=== PATIENT | female | born 1965 | race Caucasian/White ===

== ENCOUNTER 2017-05-11 19:39 | Emergency (ER) | payer BC, MEDICAID ==
[2017-05-11] MEDS ORDERED: Acetaminophen/HYDROcodone 325-10 MG Tab PO ONE (20:08)
[2017-05-11] MEDS ORDERED: Amoxicillin 500 MG Cap PO ONE (20:08)
[2017-05-11] MEDS ORDERED: Amoxicillin 500 MG Cap ONE (20:08)
[2017-05-11] MEDS ORDERED: Acetaminophen/HYDROcodone 325-10 MG Tab ONE (20:08)
[2017-05-11] MEDS ORDERED: Lidocaine 2% Viscous Solution 15 ML Cup PO ONE (20:08)
[2017-05-11] MEDS ORDERED: Lidocaine 2% Viscous Solution 15 ML Cup ONE (20:08)
[2017-05-11] MEDS ORDERED: Lisinopril 10 MG Tab PO ONE (20:15)
--- NOTE | 2017-05-11 20:15 | EDM.PDOC ---
[id number] PAINS, [id number] Time Seen by Provider: 05/11/17 19:50 Source of Information: Reports: Patient History Limitations: Reports: No Limitations - History of Present Illness INITIAL COMMENTS - FREE TEXT/NARRATIVE: c/o severe dental pain to lower right molar. notes tried to get into her dentist today but he is out for the week. Also tried to get someone at clinic to prescribe antibiotic but no one returned her call. Notes swollen gland on right side. Duration: Day(s): (last night) Quality: Reports: Throbbing Severity: Moderate Treatments MATCHER: Reports: Acetaminophen Right Upper Posterior Tooth/Teeth Pain Score (Numeric/FACES): 9 - Related Data Allergies Allergy/AdvReac Type Severity Reaction Status Date / Time No Known Allergies Allergy Verified 05/11/17 19:49 Home Meds: Home Meds metFORMIN [Glucophage] 1,000 mg PO BID 12/30/14 [History] Aspirin [Halfprin] 81 mg PO DAILY 02/19/15 [History] Cyclobenzaprine [Flexeril] 5 mg PO QID PRN 02/19/15 [History] Desoximetasone [Topicort 0.25% Crm] 1 gm TOP BID PRN 02/19/15 [History] Ibuprofen 400 mg PO Q6H PRN 02/19/15 [History] Lisinopril [Lisinopril] 10 mg PO DAILY 02/19/15 [History] Past Medical History Cardiovascular History: Reports: High Cholesterol, Hypertension Other Dermatologic History: eczema - Past Surgical History Other Female Surgeries/Procedures: "bleeding left ovarian cyst Social & Family History - Tobacco Use Smoking Status *Q: Never Smoker Years of Tobacco use: 20 Packs/Tins Daily: 0.2 Used Tobacco, but Quit: Yes Month Tobacco Last Used: current Second Hand Smoke Exposure: No - Caffeine Use Caffeine Use: Reports: Coffee, Soda, Tea - Alcohol Use Days Per Week of Alcohol Use: 0 Number of Drinks Per Day: 0 Total Drinks Per Week: 0 Date of Last Drink: 05/09/17 - Recreational Drug Use Recreational Drug Use: No Drug Use in Last 12 Months: No ED ROS ENT - Review of Systems Review Of Systems: See Below Constitutional: Reports: Chills HEENT: Reports: Dental Pain Respiratory: Reports: No Symptoms Cardiovascular: Reports: No Symptoms Musculoskeletal: Reports: No Symptoms Neurological: Reports: No Symptoms ED EXAM, ENT - Physical Exam Exam: See Below Exam Limited By: No Limitations General Appearance: Alert, Moderate Distress Eye Exam: Bilateral Eye: EOMI Ears: Normal External Exam, Normal TMs Nose: Normal Inspection Mouth/Throat: Dental Abcess (right lower posterior molar with decay, gum swollen. Remaining dentation good. ), Dental Pain Head: Atraumatic, Normocephalic Neck: Lymphadenopathy (L), Lymphadenopathy (R) Respiratory/Chest: No Respiratory Distress, Lungs Clear Cardiovascular: Normal Peripheral Pulses, Regular Rate, Rhythm GI/Abdominal: Normal Bowel Sounds Neurological: Alert, Oriented Skin: Warm, Dry, Intact Course - Vital Signs Last Recorded V/S: Last Vital Signs Temp 97.1 F 05/11/17 19:46 Pulse 99 05/11/17 19:46 Resp 18 05/11/17 19:46 BP 166/93 H 05/11/17 20:39 Pulse Ox 97 05/11/17 19:46 - Orders/Labs/Meds Meds: Medications Discontinued Medications Generic Name Dose Route Start Last Admin Trade Name Yo PRN Reason Stop Dose Admin Hydrocodone Bitart/Acetaminophen Confirm 05/11/17 20:08 [place] 325-10 Mg Administered 05/11/17 20:09 Dose 2 tab .ROUTE .STK-MED ONE Amoxicillin Confirm 05/11/17 20:08 Amoxil Administered 05/11/17 20:09 Dose 1,000 mg .ROUTE .STK-MED ONE Lidocaine HCl Confirm 05/11/17 20:08 Xylocaine 2% Viscous Administered 05/11/17 20:09 Dose 15 ml .ROUTE .STK-MED ONE Lisinopril 10 mg 05/11/17 20:15 05/11/17 20:20 Prinivil PO 05/11/17 20:16 10 mg ONETIME ONE Administration Departure - Departure Time of Disposition: 20:05 Disposition: Home, Self-Care 01 Condition: Fair Clinical Impression: Dental abscess - Discharge Information Instructions: Dental Abscess Referrals: Ashley Arriaga MD [Primary Care Provider] - Forms: ED Department Discharge Additional Instructions: Amoxicillin 500mg 1gm tonight then 500mg three times daily for one week Viscous lidocaine, apply small amount to affected tooth 4 times daily as needed 15ml tonight hydrocodone 10/325 one every 6 hours as needed #2 then alternate tylenol 650mg and ibuprofen 600mg every 4 hours as needed for dental pain follow up with dentist next week avoid foods and liquids with extreme temperature chew on opposite side
[2017-05-11 20:41] VITALS: BP 166/93
== END 2017-05-11 20:37 | disposition home or self-care (01) ==
LOC: DL.ED 19:39
DX: K04.7 Periapical abscess without sinus (principal); I10 Essential (primary) hypertension; E78.00 Pure hypercholesterolemia, unspecified; Z87.891 Personal history of nicotine dependence; Z79.82 Long term (current) use of aspirin; Z79.899 Other long term (current) drug therapy
CPT/HCPCS: 99283; A9270

== ENCOUNTER 2018-01-01 17:10 | Emergency (ER) | payer BC ==
[2018-01-01] MEDS ORDERED: Codeine/Promethazine 10-6.25 MG/5 ML Syrup 5 ML UD Cup PO ONE (17:11)
[2018-01-01] MEDS ORDERED: Ondansetron 4 MG Tab.DIS PO ONE (17:11)
[2018-01-01] MEDS ORDERED: Sodium Chloride 0.9% 1,000 ML IV ONE ×2 (17:36→19:52)
[2018-01-01] MEDS ORDERED: Albuterol/Ipratropium 3.0-0.5 MG/3 ML Neb Soln NEB ONE (17:42)
[2018-01-01 18:03] LABS: ANION GAP 11.9
--- NOTE | 2018-01-01 18:31 | EDM.PDOC ---
<Amna Solano - Last Filed: 01/01/18 18:37> ED HPI GENERAL MEDICAL PROBLEM - General Chief Complaint: General Stated Complaint: [id number] SICK SINCE MONDAY Time Seen by Provider: 01/01/18 17:30 Source of Information: Reports: Patient, RN, RN Notes Reviewed History Limitations: Reports: No Limitations - History of Present Illness INITIAL COMMENTS - FREE TEXT/NARRATIVE: Pt presents to the ER with c/o feeling ill since or Monday. She states she has had a non-productive cough, SOB, fever and chills, diarrhea, nausea and vomiting, weakness. Pt states she had a right lower lobectomy in 2014. Onset: Gradual Onset Date: 12/29/17 Duration: Constant - Related Data Allergies Allergy/AdvReac Type Severity Reaction Status Date / Time No Known Allergies Allergy Verified 01/01/18 17:14 Home Meds: Home Meds metFORMIN [Glucophage] 1,000 mg PO BID 12/30/14 [History] Aspirin [Halfprin] 81 mg PO DAILY 02/19/15 [History] Cyclobenzaprine [Flexeril] 5 mg PO QID PRN 02/19/15 [History] Desoximetasone [Topicort 0.25% Crm] 1 gm TOP BID PRN 02/19/15 [History] Ibuprofen 400 mg PO Q6H PRN 02/19/15 [History] Lisinopril [Lisinopril] 10 mg PO DAILY 02/19/15 [History] Calcitriol 01/01/18 [History] Past Medical History Cardiovascular History: Reports: High Cholesterol, Hypertension Endocrine/Metabolic History: Reports: Diabetes, Type II Oncologic (Cancer) History: Reports: Lung Other Dermatologic History: eczema - Past Surgical History Other Female Surgeries/Procedures: "bleeding left ovarian cyst Oncologic Surgical History: Reports: Lobectomy Other Oncologic Surgeries/Procedures: right lower lobe removed 2014 Social & Family History - Family History Family Medical History: Noncontributory - Tobacco Use Smoking Status *Q: Current Every Day Smoker Years of Tobacco use: 30 Packs/Tins Daily: 0.5 Used Tobacco, but Quit: Yes Month Tobacco Last Used: current Second Hand Smoke Exposure: No - Caffeine Use Caffeine Use: Reports: Coffee, Energy Drinks, Soda, Tea - Alcohol Use Days Per Week of Alcohol Use: 0 Number of Drinks Per Day: 0 Total Drinks Per Week: 0 - Recreational Drug Use Recreational Drug Use: No Drug Use in Last 12 Months: No ED ROS GENERAL - Review of Systems Review Of Systems: ROS reveals no pertinent complaints other than HPI. ED EXAM, GENERAL - Physical Exam Exam: See Below Exam Limited By: No Limitations General Appearance: Alert, WD/WN, Mild Distress Eye Exam: Bilateral Eye: EOMI, Normal Inspection, PERRL Ears: Normal External Exam, Hearing Grossly Normal Nose: Normal Inspection Throat/Mouth: Normal Inspection, Normal Voice, No Airway Compromise, Other (Dry mucous membranes) Head: Atraumatic, Normocephalic Neck: Normal Inspection, Supple, Non-Tender, Full Range of Motion Respiratory/Chest: No Respiratory Distress, No Accessory Muscle Use, Chest Non- Tender, Rhonchi (Right lung throughout) Cardiovascular: Normal Peripheral Pulses, Regular Rate, Rhythm, No Edema, No Gallop, No JVD, No Murmur, No Rub Peripheral Pulses: 2+: Radial (L), Radial (R) GI/Abdominal: Normal Bowel Sounds, Soft, No Organomegaly, No Distention, No Abnormal Bruit, No Mass, Tender (Female) Exam: Deferred Rectal (Female) Exam: Deferred Back Exam: Normal Inspection, Full Range of Motion Extremities: Normal Inspection, Normal Range of Motion, Non-Tender, No Pedal Edema, Normal Capillary Refill Neurological: Alert, Oriented, CN II-XII Intact, Normal Cognition, Normal Gait, Normal Reflexes, No Motor/Sensory Deficits Psychiatric: Normal Affect, Normal Mood Skin Exam: Warm, Dry, Intact, No Rash, Pallor Lymphatic: No Adenopathy Course - Vital Signs Last Recorded V/S: Last Vital Signs Temp 37.4 C 01/01/18 19:26 Pulse 76 01/01/18 19:26 Resp 22 H 01/01/18 19:26 BP 136/76 01/01/18 19:26 Pulse Ox 92 L 01/01/18 19:26 - Orders/Labs/Meds Orders: Active Orders 24 hr Category Date Time Status RT Aerosol Therapy [RC] ASDIRECTED Care 01/01/18 17:42 Active CULTURE BLOOD [BC] Stat Lab 01/01/18 17:35 Received CULTURE URINE [RM] Stat Lab 01/01/18 19:04 Received Labs: Laboratory Tests 01/01/18 01/01/18 01/01/18 Range/Units 17:35 17:35 17:35 WBC 5.4 (5.0-10.0) 10^3/uL RBC 3.97 L (4.2-5.4) 10^6/uL Hgb 12.2 (12.0-16.0) g/dL Hct 38.1 (37.0-47.0) % MCV 96.0 (80-100) fL MCH 30.7 (27.0-34.0) pg MCHC 32.0 L (33.0-35.0) g/dL Plt Count 220 D (150-450) 10^3/uL Neut % (Auto) 67.6 (42.2-75.2) % Lymph % (Auto) 23.7 (20.5-50.1) % [place] % (Auto) 8.1 H (2-8) % Eos % (Auto) 0.2 L (1.0-3.0) % Baso % (Auto) 0.4 (0.0-1.0) % Sodium 135 (135-145) mmol/L Potassium 3.9 (3.6-5.0) mmol/L Chloride 101 (101-111) mmol/L Carbon Dioxide 26.0 (21.0-31.0) mmol/L Anion Gap 11.9 BUN 28 H (7-18) mg/dL Creatinine 2.1 H (0.6-1.3) mg/dL Est Cr Clr Drug Dosing 30.82 mL/min Estimated GFR (MDRD) 25 BUN/Creatinine Ratio 13.33 Glucose 122 H (74-105) mg/dL Lactic Acid 0.8 (0.5-2.2) mmol/L Calcium 8.8 (8.4-10.2) mg/dl Total Bilirubin 0.3 (0.2-1.0) mg/dL AST 25 (10-42) IU/L ALT 19 (10-60) IU/L Alkaline Phosphatase 66 (42-121) IU/L Lactate Dehydrogenase (91-180) IU/L Total Protein 7.2 (6.7-8.2) g/dl Albumin 3.6 (3.2-5.5) g/dl Globulin 3.6 Albumin/Globulin Ratio 1.00 Urine Color (YELLOW) Urine Appearance (CLEAR) Urine pH (5.0-9.0) Ur Specific [place] (1.005-1.030) Urine Protein (NEGATIVE) Urine Glucose (UA) (NEGATIVE) Urine Ketones (NEGATIVE) Urine Occult Blood (NEGATIVE) Urine Nitrite (NEGATIVE) Urine Bilirubin (NEGATIVE) Urine Urobilinogen (0.2-1.0) mg/dL Ur Leukocyte Esterase (NEGATIVE) Urine RBC /HPF Urine WBC (0-5/HPF) /HPF Ur Epithelial Cells /HPF Urine Bacteria (0-FEW/HPF) /HPF 01/01/18 01/01/18 Range/Units 17:35 19:04 WBC (5.0-10.0) 10^3/uL RBC (4.2-5.4) 10^6/uL Hgb (12.0-16.0) g/dL Hct (37.0-47.0) % MCV (80-100) fL MCH (27.0-34.0) pg MCHC (33.0-35.0) g/dL Plt Count (150-450) 10^3/uL Neut % (Auto) (42.2-75.2) % Lymph % (Auto) (20.5-50.1) % [place] % (Auto) (2-8) % Eos % (Auto) (1.0-3.0) % Baso % (Auto) (0.0-1.0) % Sodium (135-145) mmol/L Potassium (3.6-5.0) mmol/L Chloride (101-111) mmol/L Carbon Dioxide (21.0-31.0) mmol/L Anion Gap BUN (7-18) mg/dL Creatinine (0.6-1.3) mg/dL Est Cr Clr Drug Dosing mL/min Estimated GFR (MDRD) BUN/Creatinine Ratio Glucose (74-105) mg/dL Lactic Acid (0.5-2.2) mmol/L Calcium (8.4-10.2) mg/dl Total Bilirubin (0.2-1.0) mg/dL AST (10-42) IU/L ALT (10-60) IU/L Alkaline Phosphatase (42-121) IU/L Lactate Dehydrogenase 161 (91-180) IU/L Total Protein (6.7-8.2) g/dl Albumin (3.2-5.5) g/dl Globulin Albumin/Globulin Ratio Urine Color Yellow (YELLOW) Urine Appearance Cloudy (CLEAR) Urine pH 7.0 (5.0-9.0) Ur Specific [place] 1.015 (1.005-1.030) Urine Protein 100 H (NEGATIVE) Urine Glucose (UA) Negative (NEGATIVE) Urine Ketones Negative (NEGATIVE) Urine Occult Blood Trace-lysed H (NEGATIVE) Urine Nitrite Positive H (NEGATIVE) Urine Bilirubin Negative (NEGATIVE) Urine Urobilinogen 1.0 (0.2-1.0) mg/dL Ur Leukocyte Esterase Moderate H (NEGATIVE) Urine RBC 5-10 H /HPF Urine WBC 20-30 H (0-5/HPF) /HPF Ur Epithelial Cells Moderate H /HPF Urine Bacteria Many H (0-FEW/HPF) /HPF Meds: Medications Discontinued Medications Generic Name Dose Route Start Last Admin Trade Name Freq PRN Reason Stop Dose Admin Albuterol/Ipratropium 3 ml 01/01/18 17:42 01/01/18 17:48 Duoneb 3.0-0.5 Mg/3 Ml NEB 01/01/18 17:43 3 ml ONETIME ONE Administration Ceftriaxone Sodium 1 gm 01/01/18 19:49 01/01/18 20:08 Rocephin IVPUSH 01/01/18 19:50 1 gm ONETIME ONE Administration Diphenhydramine HCl 25 mg 01/01/18 19:52 01/01/18 20:06 Benadryl IVPUSH 01/01/18 19:53 25 mg ONETIME ONE Administration Sodium Chloride 1,000 mls @ 999 mls/hr 01/01/18 17:36 01/01/18 17:38 Normal Saline IV 01/01/18 18:36 999 mls/hr .BOLUS ONE Administration Sodium Chloride 1,000 mls @ 999 mls/hr 01/01/18 19:52 01/01/18 20:03 Normal Saline IV 01/01/18 20:52 999 mls/hr .BOLUS ONE Administration Ondansetron HCl 4 mg 01/01/18 19:52 01/01/18 20:03 Zofran IV 01/01/18 19:53 4 mg ONETIME ONE Administration - Radiology Interpretation Free Text/Narrative:: Chest xray: No acute findings See rad report Departure - Departure Disposition: Home, Self-Care 01 Clinical Impression: UTI, Urinary tract infectious disease URI (upper respiratory infection) Qualifiers: URI type: unspecified URI Qualified Code(s): J06.9 - Acute upper respiratory infection, unspecified - Discharge Information Instructions: Upper Respiratory Infection, Adult, [id number], Urinary Tract Infection, Adult, [id number] Forms: ED Department Discharge Additional Instructions: Tylenol and/or ibuprofen as needed for pain fever discomfort. Rest over the next couple of days. Increase fluid intake over the next couple of days. Zofran 4 mg ODT 1 tablet every 6 hours as needed for nausea. Two send home from the ED prescription given to patient. Cefdinir 300 mg 1 tablet by mouth twice a day for 7 days. Rx given to patient. Return to the emergency department if new or worsening symptoms. Recheck with her primary care provider in the next 4-6 days if not improving sooner if worse. - My Orders Last 24 Hours: My Active Orders 01/01/18 19:04 CULTURE URINE [RM] Stat - Assessment/Plan Last 24 Hours: My Active Orders 01/01/18 19:04 CULTURE URINE [RM] Stat <Kartik Narayan - Last Filed: 01/01/18 21:27> Course - Re-Assessments/Exams Free Text/Narrative Re-Assessment/Exam: 01/01/18 18:46 Assumed care of the patient at this time. NT. 01/01/18 21:26 After the second liter of fluid the patient feels much better. Her skin is pink warm and dry. She still does complain of some intermittent chills. It is clear that she has a UTI and I will treat her with an antibiotic that will also cover her lungs as well. I did offer admission for she continues to have chills and with her comorbidities of past history of cancer but she denied. I will send her home with some Zofran and Cefdinir. Recheck if worsening she is understanding of this plan and her questions were answered. Departure - Departure Time of Disposition: 21:24 - My Orders Last 24 Hours: My Active Orders 01/01/18 19:04 CULTURE URINE [RM] Stat - Assessment/Plan Last 24 Hours: My Active Orders 01/01/18 19:04 CULTURE URINE [RM] Stat Assessment:: UTI URI Plan: Tylenol and/or ibuprofen as needed for pain fever discomfort. Rest over the next couple of days. Increase fluid intake over the next couple of days. Zofran 4 mg ODT 1 tablet every 6 hours as needed for nausea. Two send home from the ED prescription given to patient. Cefdinir 300 mg 1 tablet by mouth twice a day for 7 days. Rx given to patient. Return to the emergency department if new or worsening symptoms. Recheck with her primary care provider in the next 4-6 days if not improving sooner if worse.
[2018-01-01 19:28] VITALS: BP 136/76
[2018-01-01] MEDS ORDERED: cefTRIAXone 1 GM Vial IVPUSH ONE (19:49)
[2018-01-01] MEDS ORDERED: Ondansetron 4 MG/2 ML SDV IV ONE (19:52)
[2018-01-01] MEDS ORDERED: diphenhydrAMINE 50 MG/ML SDV IVPUSH ONE (19:52)
[2018-01-01] MEDS ORDERED: Ondansetron 4 MG Tab.DIS ONE (21:43)
[2018-01-01] MEDS ORDERED: Codeine/Promethazine 10-6.25 MG/5 ML Syrup 5 ML UD Cup ONE (21:57)
== END 2018-01-01 21:48 | disposition home or self-care (01) ==
LOC: DL.ED 17:10
DX: J06.9 Acute upper respiratory infection, unspecified (principal); N39.0 Urinary tract infection, site not specified; E78.00 Pure hypercholesterolemia, unspecified; I10 Essential (primary) hypertension; E11.9 Type 2 diabetes mellitus without complications; F17.210 Nicotine dependence, cigarettes, uncomplicated; Z79.82 Long term (current) use of aspirin; Z79.899 Other long term (current) drug therapy
CPT/HCPCS: 36415; 71046; 80053; 81001; 83605; 83615; 85025; 87040; 87086; 94640; 96361; 96374; 96375; 99284; J0696; J1200; J2405; J7030; 87088; 87186; A9270-GY

== ENCOUNTER 2019-08-10 14:36 | Emergency (ER) | payer MEDICAID ==
[2019-08-10 14:55] VITALS: BP 109/91; PULSE 85
--- NOTE | 2019-08-10 16:06 | EDM.PDOC ---
ED HPI GENERAL MEDICAL PROBLEM - General Chief Complaint: Skin Complaint Stated Complaint: ALLERGIC REACTION? Time Seen by Provider: 08/10/19 16:05 Source of Information: Reports: Patient, RN, RN Notes Reviewed History Limitations: Reports: No Limitations - History of Present Illness INITIAL COMMENTS - FREE TEXT/NARRATIVE: Patient presents to ER with swollen left side of face. She states it started yesterday and it has gotten worse overnight. No complaint of difficulty breathing. Pt isn't sure if the swelling is from infection or some kind of allergic reaction. Denies fevers, or dental pain. Admits to chills. Onset: Gradual Onset Date: 08/09/19 Duration: Constant, Getting Worse Location: Reports: Face Quality: Reports: Ache, Pressure Severity: Moderate Improves with: Reports: None Worsens with: Reports: None Associated Symptoms: Reports: No Other Symptoms - Related Data Allergies Allergy/AdvReac Type Severity Reaction Status Date / Time No Known Allergies Allergy Verified 01/01/18 17:14 Home Meds: Home Meds Aspirin [Halfprin] 81 mg PO DAILY 02/19/15 [History] Desoximetasone [Topicort 0.25% Crm] 1 gm TOP BID PRN 02/19/15 [History] Calcitriol 0.5 mcg PO Q48H 01/01/18 [History] Albuterol [Ventolin HFA] 2 puff INH Q6H 08/10/19 [History] Albuterol/Ipratropium [Combivent Respimat] 1 puff INH QID 08/10/19 [History] Amitriptyline [Elavil] 50 mg PO BEDTIME 08/10/19 [History] Budesonide/Formoterol Fumarate [Symbicort 80-4.5 MCG] 2 puff INH BID 08/10/19 [ History] DULoxetine [Cymbalta] 60 mg PO DAILY 08/10/19 [History] Diclofenac Sodium [Voltaren] 1 appful TOP BID PRN 08/10/19 [History] Gabapentin [Neurontin] 60 mg PO TID 08/10/19 [History] Glimepiride [Amaryl] 2 mg PO DAILY 08/10/19 [History] Meclizine HCl 25 mg PO ASDIRECTED PRN 08/10/19 [History] Metoprolol Succinate [Toprol XL] 25 mg PO DAILY 08/10/19 [History] Omeprazole 20 mg PO DAILY 08/10/19 [History] Zolpidem [Ambien] 5 mg PO BEDTIME PRN 08/10/19 [History] atorvaSTATin [Lipitor] 10 mg PO DAILY 08/10/19 [History] hydrOXYzine HCl [Hydroxyzine HCl] 25 mg PO TID PRN 08/10/19 [History] tiZANidine [Zanaflex] 4 mg PO DAILY 08/10/19 [History] traMADol HCl [Tramadol HCl] 50 mg PO BID PRN 08/10/19 [History] Past Medical History Cardiovascular History: Reports: High Cholesterol, Hypertension Endocrine/Metabolic History: Reports: Diabetes, Type II, Obesity/BMI 30+ Oncologic (Cancer) History: Reports: Lung Other Dermatologic History: eczema - Past Surgical History Oncologic Surgical History: Reports: Lobectomy Other Oncologic Surgeries/Procedures: right lower lobe removed 2014 Social & Family History - Family History Family Medical History: Noncontributory - Caffeine Use Caffeine Use: Reports: Coffee, Energy Drinks, Soda, Tea - Living Situation & Occupation Living situation: Reports: with Family ED ROS GENERAL - Review of Systems Review Of Systems: ROS reveals no pertinent complaints other than HPI. ED EXAM, SKIN/RASH Exam: See Below Exam Limited By: No Limitations General Appearance: Alert, No Apparent Distress, Obese Eye Exam: Left Eye: Other (mild infraorbital soft tissue swelling of the face), Bilateral Eye: EOMI, PERRL Ears: Normal External Exam Nose: Normal Inspection, Normal Mucosa, No Blood Throat/Mouth: Normal Teeth, Normal Oropharynx, Normal Voice, No Airway Compromise Head: Atraumatic, Facial Swelling (Left face with very faint erythema, slight increased warmth, and tenderness) Neck: Normal Inspection, Supple, Non-Tender, Full Range of Motion Respiratory/Chest: No Respiratory Distress, Lungs Clear, Normal Breath Sounds, No Accessory Muscle Use, Chest Non-Tender. No: Crackles, Rales, Rhonchi, Wheezing, Stridor Cardiovascular: Regular Rate, Rhythm Extremities: Normal Inspection Neurological: Alert, Oriented, CN II-XII Intact, Normal Cognition, No Motor/ Sensory Deficits Psychiatric: Normal Affect, Normal Mood Skin: Warm, Dry, Intact Course - Vital Signs Last Recorded V/S: Last Vital Signs Temp 96.5 F 08/10/19 14:40 Pulse 85 08/10/19 14:40 Resp 18 08/10/19 14:40 BP 109/91 H 08/10/19 14:40 Pulse Ox 98 08/10/19 14:40 - Orders/Labs/Meds Orders: Active Orders 24 hr Category Date Time Status Blood Glucose Check, Bedside [RC] ONETIME Care 08/10/19 18:05 Ordered Peripheral IV Care [RC] . DIRECTED Care 08/10/19 16:08 Active Sodium Chloride 0.9% [Saline Flush] Med 08/10/19 16:08 Active 10 ml FLUSH ASDIRECTED PRN Peripheral IV Insertion Adult [OM.PC] Stat Oth 08/10/19 16:08 Ordered Medication Orders Sodium Chloride (Saline Flush) 10 ml FLUSH ASDIRECTED PRN PRN Reason: Keep Vein Open Last Admin: 08/10/19 16:20 Dose: 10 ml Labs: Laboratory Tests 08/10/19 08/10/19 08/10/19 Range/Units 16:23 16:23 16:23 WBC 7.3 (5.0-10.0) 10^3/uL RBC 4.30 (4.2-5.4) 10^6/uL Hgb 12.5 (12.0-16.0) g/dL Hct 37.9 (37.0-47.0) % MCV 88.1 D (80-100) fL MCH 29.1 (27.0-34.0) pg MCHC 33.0 (33.0-35.0) g/dL Plt Count 269 (150-450) 10^3/uL Neut % (Auto) 66.4 (42.2-75.2) % Lymph % (Auto) 24.3 (20.5-50.1) % [place] % (Auto) 5.2 (2-8) % Eos % (Auto) 3.4 H (1.0-3.0) % Baso % (Auto) 0.7 (0.0-1.0) % Sodium 133 L (135-145) mmol/L Potassium 4.6 (3.6-5.0) mmol/L Chloride 94 L (101-111) mmol/L Carbon Dioxide 29.0 (21.0-31.0) mmol/L Anion Gap 14.6 BUN 30 H (7-18) mg/dL Creatinine 1.8 H (0.6-1.3) mg/dL Est Cr Clr Drug Dosing 35.15 mL/min Estimated GFR (MDRD) 29 BUN/Creatinine Ratio 16.66 Glucose 402 H* (74-105) mg/dL Calcium 9.7 (8.4-10.2) mg/dl Total Bilirubin 0.7 (0.2-1.0) mg/dL AST 14 (10-42) IU/L ALT 20 (10-60) IU/L Alkaline Phosphatase 138 H (42-121) IU/L C-Reactive Protein 2.1 H (0.0-1.3) mg/dL Total Protein 7.1 (6.7-8.2) g/dl Albumin 3.7 (3.2-5.5) g/dl Globulin 3.4 Albumin/Globulin Ratio 1.09 Meds: Medications Generic Name Dose Route Start Last Admin Trade Name Freq PRN Reason Stop Dose Admin Sodium Chloride 10 ml 08/10/19 16:08 08/10/19 16:20 Saline Flush FLUSH 10 ml ASDIRECTED PRN Administration Keep Vein Open Discontinued Medications Generic Name Dose Route Start Last Admin Trade Name Freq PRN Reason Stop Dose Admin Dexamethasone 8 mg 08/10/19 16:09 08/10/19 16:33 Dexamethasone IVPUSH 08/10/19 16:10 8 mg ONETIME ONE Administration Diphenhydramine HCl 25 mg 08/10/19 16:10 08/10/19 16:37 Benadryl IVPUSH 08/10/19 16:11 25 mg ONETIME ONE Administration Hydromorphone HCl 0.5 mg 08/10/19 16:10 08/10/19 16:39 Dilaudid IVPUSH 08/10/19 16:11 0.5 mg ONETIME ONE Administration Sodium Chloride 1,000 mls @ 999 mls/hr 08/10/19 16:09 08/10/19 16:32 Normal Saline IV 08/10/19 17:09 999 mls/hr .BOLUS ONE Administration Piperacillin Sod/Tazobactam 100 mls @ 200 mls/hr 08/10/19 17:05 08/10/19 17: 23 Sod 3.375 gm/ Sodium Chloride IV 08/10/19 17:34 200 mls/hr ONETIME ONE Administration Insulin Human Regular 10 unit 08/10/19 17:18 08/10/19 17:42 Novolin R SUBCUT 08/10/19 17:19 10 unit ONETIME ONE Administration Protocol Insulin Human Regular Confirm 08/10/19 17:29 08/10/19 17:41 Humulin R Administered 08/10/19 17:30 0.1 ml Dose Administration 300 unit .ROUTE .STK-MED ONE Departure - Departure Time of Disposition: 18:15 Disposition: Home, Self-Care 01 Condition: Fair Clinical Impression: Facial cellulitis Hyperglycemia due to type 2 diabetes mellitus Qualifiers: Diabetes mellitus alf insulin use: without alf use Qualified Code(s ): E11.65 - Type 2 diabetes mellitus with hyperglycemia - Discharge Information *PRESCRIPTION DRUG MONITORING PROGRAM REVIEWED*: No *COPY OF PRESCRIPTION DRUG MONITORING REPORT IN PATIENT CLIFF: No Instructions: Cellulitis, Adult, Diabetes Mellitus and Sick Day Management Forms: ED Department Discharge Additional Instructions: Rx: Clindamycin 300mg Rx: Doxycycline 100mg Follow up in clinic Monday, Aug.12 for recheck. Return to ER if worse at any time. - My Orders Last 24 Hours: My Active Orders 08/10/19 16:08 Peripheral IV Care [RC] . DIRECTED Sodium Chloride 0.9% [Saline Flush] 10 ml FLUSH ASDIRECTED PRN Peripheral IV Insertion Adult [OM.PC] Stat 08/10/19 18:05 Blood Glucose Check, Bedside [RC] ONETIME - Assessment/Plan Last 24 Hours: My Active Orders 08/10/19 16:08 Peripheral IV Care [RC] . DIRECTED Sodium Chloride 0.9% [Saline Flush] 10 ml FLUSH ASDIRECTED PRN Peripheral IV Insertion Adult [OM.PC] Stat 08/10/19 18:05 Blood Glucose Check, Bedside [RC] ONETIME
[2019-08-10] MEDS ORDERED: Sodium Chloride 0.9% 10 ML Syringe FLUSH PRN (16:08)
[2019-08-10] MEDS ORDERED: Sodium Chloride 0.9% 1,000 ML IV ONE (16:09)
[2019-08-10] MEDS ORDERED: Dexamethasone 4 MG/ML SDV IVPUSH ONE (16:09)
[2019-08-10] MEDS ORDERED: HYDROmorphone 1 MG/ML Syringe IVPUSH ONE (16:10)
[2019-08-10] MEDS ORDERED: diphenhydrAMINE 50 MG/ML SDV IVPUSH ONE (16:10)
[2019-08-10 16:50] LABS: ANION GAP 14.6
[2019-08-10] MEDS ORDERED: Piperacillin/Tazobactam 3.375 GM in Sodium Chloride 0.9% 100 ML IV ONE (17:05)
[2019-08-10] MEDS ORDERED: Insulin Regular, Human 100 Units/ML 10 ML Vial SUBCUT ONE (17:18)
[2019-08-10] MEDS ORDERED: Insulin Regular, Human 100 Units/ML 3 ML Vial ONE (17:29)
== END 2019-08-10 18:39 | disposition home or self-care (01) ==
LOC: DL.ED 14:36
DX: L03.211 Cellulitis of face (principal); E11.65 Type 2 diabetes mellitus with hyperglycemia; I10 Essential (primary) hypertension; E78.00 Pure hypercholesterolemia, unspecified; Z79.82 Long term (current) use of aspirin; Z79.899 Other long term (current) drug therapy; Z85.118 Personal history of other malignant neoplasm of bronchus and lung
CPT/HCPCS: 36415; 80053; 85025; 86140; 96361; 96365; 96372; 96375; 99283; J1100; J1170; J1200; J1815; J1817; J2543; J7030; J7050

== ENCOUNTER 2020-02-29 17:52 | Emergency (ER) | payer SELFPAY ==
[2020-02-29] MEDS ORDERED: Sodium Chloride 0.9% 10 ML Syringe FLUSH PRN (18:02)
[2020-02-29] MEDS ORDERED: Sodium Chloride 0.9% 1,000 ML IV ONE ×3 (18:02→19:23)
[2020-02-29 18:19] VITALS: PULSE 83
[2020-02-29] MEDS ORDERED: Norepinephrine 4 MG/4 ML SDV ONE (18:44)
[2020-02-29] MEDS ORDERED: Norepinephrine 4 MG in Dextrose 5% in Water 246 ML IV SCH ×2 (18:45)
[2020-02-29 18:51] LABS: ANION GAP 12.3 mEq/L (7-13); CHLORIDE,CL 88 mmol/L (98-107); SODIUM,NA 124 mmol/L (136-145)
--- NOTE | 2020-02-29 19:07 | EDM.PDOC ---
ED HPI GENERAL MEDICAL PROBLEM - General Chief Complaint: General Stated Complaint: POS. COV. SHORTNESS OF BREATH. FELL 4X YESTERDAY Time Seen by Provider: 02/29/20 19:02 Source of Information: Reports: Patient History Limitations: Reports: No Limitations - History of Present Illness INITIAL COMMENTS - FREE TEXT/NARRATIVE: pt states started getting sick yesterday with SOB, congestion, F/C, body aches. pt called [facility] hotline and told to for testing. also pt states been light headed and did fall few times but no LOC, no head injury. thinks she is dehydrated. denies being around known ariadne and been nowhere but home. right now feel achy all over. - Related Data Allergies Allergy/AdvReac Type Severity Reaction Status Date / Time No Known Allergies Allergy Verified 02/29/20 18:14 Home Meds: Home Meds Aspirin [Halfprin] 81 mg PO DAILY 02/19/15 [History] Desoximetasone [Topicort 0.25% Crm] 1 gm TOP BID PRN 02/19/15 [History] Albuterol [Ventolin HFA] 2 puff INH Q6H 08/10/19 [History] Albuterol/Ipratropium [Combivent Respimat] 1 puff INH QID 08/10/19 [History] Amitriptyline [Elavil] 50 mg PO BEDTIME 08/10/19 [History] DULoxetine [Cymbalta] 60 mg PO DAILY 08/10/19 [History] Diclofenac Sodium [Voltaren] 1 appful TOP BID PRN 08/10/19 [History] Gabapentin [Neurontin] 60 mg PO TID 08/10/19 [History] Glimepiride [Amaryl] 2 mg PO DAILY 08/10/19 [History] Meclizine HCl 25 mg PO ASDIRECTED PRN 08/10/19 [History] Metoprolol Succinate [Toprol XL] 25 mg PO DAILY 08/10/19 [History] Omeprazole 20 mg PO DAILY 08/10/19 [History] Zolpidem [Ambien] 5 mg PO BEDTIME PRN 08/10/19 [History] atorvaSTATin [Lipitor] 10 mg PO DAILY 08/10/19 [History] hydrOXYzine HCL [Hydroxyzine HCl] 25 mg PO TID PRN 08/10/19 [History] tiZANidine [Zanaflex] 4 mg PO DAILY 08/10/19 [History] traMADol HCl [Tramadol HCl] 50 mg PO BID PRN 08/10/19 [History] Past Medical History HEENT History: Reports: None Cardiovascular History: Reports: High Cholesterol, Hypertension Respiratory History: Reports: None Gastrointestinal History: Reports: None Genitourinary History: Reports: 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 Musculoskeletal History: Reports: None Neurological History: Reports: None Psychiatric History: Reports: None Endocrine/Metabolic History: Reports: Diabetes, Type II, Obesity/BMI 30+ Hematologic History: Reports: None Immunologic History: Reports: None Oncologic (Cancer) History: Reports: Lung Dermatologic History: Reports: Eczema Other Dermatologic History: eczema - Infectious Disease History Infectious Disease History: Reports: None - Past Surgical History Head Surgeries/Procedures: Reports: None Other Female Surgeries/Procedures: "bleeding left ovarian cyst Oncologic Surgical History: Reports: Lobectomy Other Oncologic Surgeries/Procedures: right lower lobe removed 2014 Social & Family History - Family History Family Medical History: Noncontributory - Tobacco Use Smoking Status *Q: Never Smoker Second Hand Smoke Exposure: No - Caffeine Use Caffeine Use: Reports: Coffee, Soda - Recreational Drug Use Recreational Drug Use: No - Living Situation & Occupation Living situation: Reports: with Family ED ROS GENERAL - Review of Systems Review Of Systems: Comprehensive ROS is negative, except as noted in HPI. ED EXAM, GENERAL - Physical Exam Exam: See Below Exam Limited By: No Limitations General Appearance: Alert, WD/WN, Mild Distress, Other (discomfort) Ears: Hearing Grossly Normal Throat/Mouth: Normal Voice, No Airway Compromise Head: Atraumatic Neck: Non-Tender, Full Range of Motion Respiratory/Chest: No Respiratory Distress, No Accessory Muscle Use, Rhonchi. No: Decreased Breath Sounds Cardiovascular: Regular Rate, Rhythm GI/Abdominal: Soft, Non-Tender Neurological: Alert, Oriented, Normal Cognition, Normal Gait, No Motor/Sensory Deficits Course - Vital Signs Last Recorded V/S: Last Vital Signs Temp 36.6 C 02/29/20 19:11 Pulse 83 02/29/20 19:11 Resp 16 02/29/20 19:11 BP 95/56 L 02/29/20 19:11 Pulse Ox 96 02/29/20 19:11 - Orders/Labs/Meds Orders: Active Orders 24 hr Category Date Time Status EKG Documentation Completion [RC] STAT Care 02/29/20 18:01 Active Peripheral IV Care [RC] . DIRECTED Care 02/29/20 18:02 Active Chest 1V Frontal [CR] Stat Exams 02/29/20 18:01 Taken CULTURE STREP A CONFIRMATION [RM] Stat Lab 02/29/20 18:10 Results STREP SCRN A RAPID W CULT CONF [RM] Stat Lab 02/29/20 18:10 Results Norepinephrine [Levophed] 4 mg Med 02/29/20 18:45 Active Dextrose 5% in Water 246 ml IV TITRATE Sodium Chloride 0.9% [Normal Saline] 1,000 ml Med 02/29/20 19:23 Active IV .BOLUS Sodium Chloride 0.9% [Saline Flush] Med 02/29/20 18:02 Active 10 ml FLUSH ASDIRECTED PRN Isolation [COMM] Routine Oth 02/29/20 18:02 Active Peripheral IV Insertion Adult [OM.PC] Stat Oth 02/29/20 18:01 Ordered Medication Orders Norepinephrine Bitartrate 4 mg (/ Dextrose/Water) 250 mls @ 7.5 mls/hr IV TITRATE CELE; Protocol Last Titration: 02/29/20 19:40 Dose: 1 mcg/min, 3.75 mls/hr Admin: 02/29/20 19:07 Dose: 2 mcg/min, 7.5 mls/hr Sodium Chloride (Normal Saline) 1,000 mls @ 999 mls/hr IV .BOLUS ONE Stop: 02/29/20 20:23 Last Admin: 02/29/20 19:23 Dose: 999 mls/hr Sodium Chloride (Saline Flush) 10 ml FLUSH ASDIRECTED PRN PRN Reason: Keep Vein Open Last Admin: 02/29/20 18:30 Dose: 10 ml Labs: Laboratory Tests 02/29/20 02/29/20 02/29/20 Range/Units 18:10 18:15 18:15 WBC 7.3 (5.0-10.0) 10^3/uL RBC 3.43 L (4.2-5.4) 10^6/uL Hgb 10.2 L D (12.0-16.0) g/dL Hct 30.9 L (37.0-47.0) % MCV 90.1 (80-100) fL MCH 29.7 (27.0-34.0) pg MCHC 33.0 (33.0-35.0) g/dL Plt Count 271 (150-450) 10^3/uL Neut % (Auto) 85.1 H (42.2-75.2) % Lymph % (Auto) 7.8 L (20.5-50.1) % [place] % (Auto) 5.9 (2-8) % Eos % (Auto) 0.8 L (1.0-3.0) % Baso % (Auto) 0.4 (0.0-1.0) % D-Dimer, Quantitative 1450 H (0-400) ng/mL Sodium (136-145) mmol/L Potassium (3.5-5.1) mmol/L Chloride (98-107) mmol/L Carbon Dioxide (21-32) mmol/L Anion Gap (7-13) mEq/L BUN (7-18) mg/dL Creatinine (0.55-1.02) mg/dL Est Cr Clr Drug Dosing mL/min Estimated GFR (MDRD) BUN/Creatinine Ratio (No establ ref range) Glucose (74-99) mg/dL Calcium (8.5-10.1) mg/dL Total Bilirubin (0.2-1.0) mg/dL AST (15-37) U/L ALT (14-59) U/L Alkaline Phosphatase (46-116) U/L Lactate Dehydrogenase (81-234) U/L Creatine Kinase (16-191) U/L Troponin I (0.000-0.056) ng/mL C-Reactive Protein (0.0-0.9) mg/dL B-Natriuretic Peptide (0-100) pg/ml Total Protein (6.4-8.2) g/dL Albumin (3.4-5.0) g/dL Globulin Albumin/Globulin Ratio SARS-CoV-2 RNA (RT-PCR) Negative (NEGATIVE) 02/29/20 Range/Units 18:15 WBC (5.0-10.0) 10^3/uL RBC (4.2-5.4) 10^6/uL Hgb (12.0-16.0) g/dL Hct (37.0-47.0) % MCV (80-100) fL MCH (27.0-34.0) pg MCHC (33.0-35.0) g/dL Plt Count (150-450) 10^3/uL Neut % (Auto) (42.2-75.2) % Lymph % (Auto) (20.5-50.1) % [place] % (Auto) (2-8) % Eos % (Auto) (1.0-3.0) % Baso % (Auto) (0.0-1.0) % D-Dimer, Quantitative (0-400) ng/mL Sodium 124 L (136-145) mmol/L Potassium 4.3 (3.5-5.1) mmol/L Chloride 88 L (98-107) mmol/L Carbon Dioxide 28 (21-32) mmol/L Anion Gap 12.3 (7-13) mEq/L BUN 29 H (7-18) mg/dL Creatinine 2.69 H (0.55-1.02) mg/dL Est Cr Clr Drug Dosing 21.76 mL/min Estimated GFR (MDRD) 19 BUN/Creatinine Ratio 10.8 (No establ ref range) Glucose 671 H* (74-99) mg/dL Calcium 8.7 (8.5-10.1) mg/dL Total Bilirubin 0.5 (0.2-1.0) mg/dL AST 16 (15-37) U/L ALT 32 (14-59) U/L Alkaline Phosphatase 169 H (46-116) U/L Lactate Dehydrogenase 122 (81-234) U/L Creatine Kinase 96 (16-191) U/L Troponin I < 0.017 (0.000-0.056) ng/mL C-Reactive Protein 32.4 H (0.0-0.9) mg/dL B-Natriuretic Peptide 29 (0-100) pg/ml Total Protein 6.9 (6.4-8.2) g/dL Albumin 2.7 L (3.4-5.0) g/dL Globulin 4.2 Albumin/Globulin Ratio 0.64 SARS-CoV-2 RNA (RT-PCR) (NEGATIVE) Meds: Medications Generic Name Dose Route Start Last Admin Trade Name Freq PRN Reason Stop Dose Admin Norepinephrine Bitartrate 4 mg 250 mls @ 7.5 mls/hr 02/29/20 18:45 02/29/20 19:40 / Dextrose/Water IV 1 mcg/min TITRATE CELE 3.75 mls/hr Titration Protocol 2 MCG/MIN Sodium Chloride 1,000 mls @ 999 mls/hr 02/29/20 19:23 02/29/20 19:23 Normal Saline IV 02/29/20 20:23 999 mls/hr .BOLUS ONE Administration Sodium Chloride 10 ml 02/29/20 18:02 02/29/20 18:30 Saline Flush FLUSH 10 ml ASDIRECTED PRN Administration Keep Vein Open Discontinued Medications Generic Name Dose Route Start Last Admin Trade Name Freq PRN Reason Stop Dose Admin Sodium Chloride 1,000 mls @ 999 mls/hr 02/29/20 18:02 02/29/20 18:30 Normal Saline IV 02/29/20 19:02 999 mls/hr .BOLUS ONE Administration Sodium Chloride 1,000 mls @ 999 mls/hr 02/29/20 18:44 02/29/20 18:55 Normal Saline IV 02/29/20 19:44 999 mls/hr .BOLUS ONE Administration Insulin Human Regular 5 unit 02/29/20 19:26 02/29/20 19:29 Humulin R IV 02/29/20 19:27 5 units ONETIME ONE Administration Norepinephrine Bitartrate Confirm 02/29/20 18:44 02/29/20 18:56 Levophed Administered 02/29/20 18:45 Not Given Dose 4 [address] .[address] [facility] ONE - Re-Assessments/Exams Free Text/Narrative Re-Assessment/Exam: 02/29/20 19:[address] Kline who kindly accepted pt. Departure - Departure Time of Disposition: 19:51 Disposition: DC/Tfer to Acute Hospital 02 Condition: Good Clinical Impression: Hyperglycemia, Elevated d-dimer, Elevated C-reactive protein (CRP), Renal insufficiency Hypotension Qualifiers: Hypotension type: unspecified hypotension type Qualified Code(s): I95.9 - Hypotension, unspecified - Discharge Information Forms: Interfacility Transfer [facility] Sepsis Event Note - Evaluation Sepsis Screening Result: No Definite Risk - Focused Exam Vital Signs: Vital Signs Temp Pulse Resp BP Pulse Ox 02/29/20 19:11 36.6 C 83 16 95/56 L 96 02/29/20 18:15 35.5 C L 83 14 86/47 L 97 Date Exam was Performed: 02/29/20 Time Exam was Performed: 19:51 - My Orders Last 24 Hours: My Active Orders 02/29/20 19:23 Sodium Chloride 0.9% [Normal Saline] 1,000 ml IV .BOLUS - Assessment/Plan Last 24 Hours: My Active Orders 02/29/20 19:23 Sodium Chloride 0.9% [Normal Saline] 1,000 ml IV .BOLUS
[2020-02-29 19:12] VITALS: BP 95/56
[2020-02-29] MEDS ORDERED: Insulin Regular, Human 100 Units/ML 3 ML Vial IV ONE (19:26)
== END 2020-02-29 20:50 ==
LOC: DL.ED 17:52
DX: R06.02 Shortness of breath (principal); E11.65 Type 2 diabetes mellitus with hyperglycemia; R79.1 Abnormal coagulation profile; R79.82 Elevated C-reactive protein (CRP); N28.9 Disorder of kidney and ureter, unspecified; I10 Essential (primary) hypertension; I95.9 Hypotension, unspecified; E78.00 Pure hypercholesterolemia, unspecified; E66.9 Obesity, unspecified; Z68.41 Body mass index [BMI] 40.0-44.9, adult; Z79.82 Long term (current) use of aspirin; Z79.899 Other long term (current) drug therapy; Z79.84 Long term (current) use of oral hypoglycemic drugs
CPT/HCPCS: 36415; 71045; 80053; 82550; 82962; 83615; 83880; 84484; 85025; 85379; 86140; 87081; 87430; 87635; 87804; 93005; 96361; 96365; 96366; 99285; J1815; J7030; J7060; 99284; U0002

== ENCOUNTER 2020-10-26 00:29 | Inpatient (IN) | payer MEDICAID ==
--- NOTE | 2020-10-26 00:51 | EDM.PDOC ---
ED HPI GENERAL MEDICAL PROBLEM - General Chief Complaint: Diabetic Complaint Stated Complaint: AMBULANCE Time Seen by Provider: 10/26/20 00:47 Source of Information: Reports: Patient, EMS History Limitations: Reports: No Limitations - History of Present Illness INITIAL COMMENTS - FREE TEXT/NARRATIVE: EMS called for possible DM reaction and told by pt's daughter pt been hallucin ating past few days. pt states was playing outside with kids and being chased. pt arrived with mud on pants legs. gluc >500 - Related Data Allergies Allergy/AdvReac Type Severity Reaction Status Date / Time No Known Allergies Allergy Verified 10/26/20 01:25 Home Meds: Home Meds Aspirin [Halfprin] 81 mg PO DAILY 02/19/15 [History] Desoximetasone [Topicort 0.25% Crm] 1 gm TOP BID PRN 02/19/15 [History] Albuterol [Ventolin HFA] 2 puff INH Q6H 08/10/19 [History] Albuterol/Ipratropium [Combivent Respimat] 1 puff INH QID 08/10/19 [History] Amitriptyline [Elavil] 50 mg PO BEDTIME 08/10/19 [History] DULoxetine [Cymbalta] 60 mg PO DAILY 08/10/19 [History] Diclofenac Sodium [Voltaren] 1 appful TOP BID PRN 08/10/19 [History] Gabapentin [Neurontin] 600 mg PO TID 08/10/19 [History] Glimepiride [Amaryl] 2 mg PO BID 08/10/19 [History] Meclizine HCl 25 mg PO ASDIRECTED PRN 08/10/19 [History] Metoprolol Succinate [Toprol XL] 25 mg PO DAILY 08/10/19 [History] Omeprazole 20 mg PO DAILY 08/10/19 [History] Zolpidem [Ambien] 5 mg PO BEDTIME PRN 08/10/19 [History] atorvaSTATin [Lipitor] 10 mg PO DAILY 08/10/19 [History] hydrOXYzine HCL [Hydroxyzine HCl] 25 mg PO TID PRN 08/10/19 [History] tiZANidine [Zanaflex] 4 mg PO DAILY 08/10/19 [History] traMADol HCl [Tramadol HCl] 50 mg PO BID PRN 08/10/19 [History] Past Medical History HEENT History: Reports: None Cardiovascular History: Reports: High Cholesterol, Hypertension Respiratory History: Reports: COPD Gastrointestinal History: Reports: GERD Genitourinary History: Reports: Renal Disease, Other (See Below) Other Genitourinary History: CKDIII 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: Endometriosis Musculoskeletal History: Reports: Arthritis Neurological History: Reports: None Psychiatric History: Reports: Anxiety, Depression Endocrine/Metabolic History: Reports: Diabetes, Type II, Obesity/BMI 30+ Hematologic History: Reports: None, Blood Transfusion(s) Immunologic History: Reports: None Oncologic (Cancer) History: Reports: Lung Dermatologic History: Reports: Eczema Other Dermatologic History: eczema - Infectious Disease History Infectious Disease History: Reports: Chicken Pox - Past Surgical History Head Surgeries/Procedures: Reports: None Cardiovascular Surgical History: Reports: None Other Respiratory Surgeries/Procedures: Hx lung cancer, one tumor removed on right side. Female Surgical History: Reports: Hysterectomy Other Female Surgeries/Procedures: "bleeding left ovarian cyst Musculoskeletal Surgical History: Reports: Knee Replacement Oncologic Surgical History: Reports: Lobectomy Other Oncologic Surgeries/Procedures: right lower lobe removed 2014 Social & Family History - Family History Family Medical History: No Pertinent Family History - Caffeine Use Caffeine Use: Reports: Coffee - Living Situation & Occupation Living situation: Reports: with Family ED ROS GENERAL - Review of Systems Review Of Systems: Comprehensive ROS is negative, except as noted in HPI. ED EXAM GENERAL NO PERIP PULSE - Physical Exam Exam: See Below Exam Limited By: No Limitations General Appearance: Alert, WD/WN, No Apparent Distress Eye Exam: Bilateral Eye: PERRL (pupils ess ER @ 4mm) Ears: Hearing Grossly Normal Throat/Mouth: Normal Voice, No Airway Compromise Head: Atraumatic Neck: Non-Tender, Full Range of Motion Respiratory/Chest: No Respiratory Distress Cardiovascular: Regular Rate, Rhythm GI/Abdominal: Soft, Non-Tender (Female) Exam: Deferred Rectal (Female) Exam: Deferred Neurological: Alert, Oriented, No Motor/Sensory Deficits Psychiatric: Flat Affect Skin Exam: Warm, Dry, Normal Color Lymphatic: No Adenopathy Course - Vital Signs Last Recorded V/S: Last Vital Signs Temp 35.7 C L 10/26/20 00:39 Pulse 98 10/26/20 00:39 Resp 18 10/26/20 00:39 BP 112/101 H 10/26/20 00:39 Pulse Ox 92 L 10/26/20 00:39 - Orders/Labs/Meds Orders: Active Orders 24 hr Category Date Time Status DRUG SCREEN URINE BIORAD [URCHEM] Stat Lab 10/26/20 00:45 Ordered UA RFX CHITRA AND CULT IF INDIC [URIN] Stat Lab 10/26/20 00:45 Ordered Labs: Laboratory Tests 10/26/20 10/26/20 10/26/20 Range/Units 00:48 00:57 00:57 WBC 6.0 (5.0-10.0) 10^3/uL RBC 3.95 L (4.2-5.4) 10^6/uL Hgb 11.7 L D (12.0-16.0) g/dL Hct 35.2 L (37.0-47.0) % MCV 89.1 (80-100) fL MCH 29.6 (27.0-34.0) pg MCHC 33.2 (33.0-35.0) g/dL Plt Count 216 (150-450) 10^3/uL Neut % (Auto) 79.3 H (42.2-75.2) % Lymph % (Auto) 14.1 L (20.5-50.1) % [place] % (Auto) 6.1 (2-8) % Eos % (Auto) 0.2 L (1.0-3.0) % Baso % (Auto) 0.3 (0.0-1.0) % D-Dimer, Quantitative 856 H (0-400) ng/mL Sodium (136-145) mmol/L Potassium (3.5-5.1) mmol/L Chloride (98-107) mmol/L Carbon Dioxide (21-32) mmol/L Anion Gap (7-13) mEq/L BUN (7-18) mg/dL Creatinine (0.55-1.02) mg/dL Est Cr Clr Drug Dosing Estimated GFR (MDRD) BUN/Creatinine Ratio (No establ ref range) Glucose (74-99) mg/dL Lactic Acid (0.4-2.0) mmol/L Calcium (8.5-10.1) mg/dL Total Bilirubin (0.2-1.0) mg/dL AST (15-37) U/L ALT (14-59) U/L Alkaline Phosphatase (46-116) U/L Troponin I (0.000-0.056) ng/mL Total Protein (6.4-8.2) g/dL Albumin (3.4-5.0) g/dL Globulin Albumin/Globulin Ratio Ketones SARS CoV-2 RNA Rapid BALB[place] Positive H (NEGATIVE) 10/26/20 10/26/20 10/26/20 Range/Units 00:57 00:57 00:57 WBC (5.0-10.0) 10^3/uL RBC (4.2-5.4) 10^6/uL Hgb (12.0-16.0) g/dL Hct (37.0-47.0) % MCV (80-100) fL MCH (27.0-34.0) pg MCHC (33.0-35.0) g/dL Plt Count (150-450) 10^3/uL Neut % (Auto) (42.2-75.2) % Lymph % (Auto) (20.5-50.1) % [place] % (Auto) (2-8) % Eos % (Auto) (1.0-3.0) % Baso % (Auto) (0.0-1.0) % D-Dimer, Quantitative (0-400) ng/mL Sodium 126 L (136-145) mmol/L Potassium 4.2 (3.5-5.1) mmol/L Chloride 91 L (98-107) mmol/L Carbon Dioxide 24 (21-32) mmol/L Anion Gap 15.2 H (7-13) mEq/L BUN 50 H (7-18) mg/dL Creatinine 3.13 H (0.55-1.02) mg/dL Est Cr Clr Drug Dosing TNP Estimated GFR (MDRD) 15 BUN/Creatinine Ratio 16.0 (No establ ref range) Glucose 623 H* (74-99) mg/dL Lactic Acid 1.5 (0.4-2.0) mmol/L Calcium 8.4 L (8.5-10.1) mg/dL Total Bilirubin 0.4 (0.2-1.0) mg/dL AST 34 (15-37) U/L ALT 48 (14-59) U/L Alkaline Phosphatase 145 H (46-116) U/L Troponin I < 0.017 (0.000-0.056) ng/mL Total Protein 6.6 (6.4-8.2) g/dL Albumin 2.8 L (3.4-5.0) g/dL Globulin 3.8 Albumin/Globulin Ratio 0.74 Ketones Negative SARS CoV-2 RNA Rapid BALB[place] (NEGATIVE) Meds: Medications Discontinued Medications Generic Name Dose Route Start Last Admin Trade Name Frecharo PRN Reason Stop Dose Admin Sodium Chloride 1,000 mls @ 999 mls/hr 10/26/20 00:52 10/26/20 01:06 Normal Saline IV 10/26/20 01:52 999 mls/hr .BOLUS ONE Administration Insulin Human Regular 5 unit 10/26/20 00:52 10/26/20 01:06 Humulin R IV 10/26/20 00:53 5 unit ONETIME ONE Administration - Re-Assessments/Exams Free Text/Narrative Re-Assessment/Exam: 10/26/20 01:30 re-exam; pt states was chasing a dog outside with her friend reason why there is dirt on her legs and pants. works at [employer] but had to get covid tested and been off work waiting for results. states her daughter called EMS claiming she isn't acting right. 10/26/20 02:03 daughter arrived states found mother on floor at home not acting her normal self. had to have help from PD to get her back up and called EMS. states mother been sick past few days and been home. also been very unsteady and falling alot. 10/26/20 02:[address] Kline who kindly admitted pt Departure - Departure Time of Disposition: 02:42 Disposition: Admitted As Inpatient 67 Clinical Impression: Hyperglycemia, Hypoxia, Pneumonia due to COVID-19 virus - Discharge Information Forms: ED Department Discharge Sepsis Event Note (ED) - Evaluation Sepsis Screening Result: No Definite Risk - Focused Exam Vital Signs: Vital Signs Temp Pulse Resp BP Pulse Ox 10/26/20 00:39 35.7 C L 98 18 112/101 H 92 L - My Orders Last 24 Hours: My Active Orders 10/26/20 00:45 DRUG SCREEN URINE BIORAD [URCHEM] Stat UA RFX CHITRA AND CULT IF INDIC [URIN] Stat - Assessment/Plan Last 24 Hours: My Active Orders 10/26/20 00:45 DRUG SCREEN URINE BIORAD [URCHEM] Stat UA RFX CHITRA AND CULT IF INDIC [URIN] Stat
[2020-10-26] MEDS ORDERED: Sodium Chloride 0.9% 1,000 ML IV ONE (00:52)
[2020-10-26] MEDS ORDERED: Insulin Regular, Human 100 Units/ML 3 ML Vial IV ONE (00:52)
[2020-10-26 01:35] LABS: ANION GAP 15.2 mEq/L (7-13); CHLORIDE,CL 91 mmol/L (98-107); SODIUM,NA 126 mmol/L (136-145)
--- NOTE | 2020-10-26 02:26 | CT ---
PROCEDURE INFORMATION: Exam: CT Head Without Contrast Exam date and time: 10/26/2020 1:57 AM Age: 55 years old Clinical indication: Other: Altered mentation; Additional info: Covid pos, high d dimer, hypoxia, altered mentatio TECHNIQUE: Imaging protocol: Computed tomography of the head without contrast. Radiation optimization: All CT scans at this facility use at least one of these dose optimization techniques: automated exposure control; mA and/or kV adjustment per patient size (includes targeted exams where dose is matched to clinical indication); or iterative reconstruction. COMPARISON: CT Head wo Cont 07/02/2019 2:09 PM FINDINGS: Brain: Normal. No hemorrhage. Unremarkable white matter. No mass effect. Cerebral ventricles: No ventriculomegaly. Bones/joints: Unremarkable. No acute fracture. Paranasal sinuses: Visualized sinuses are unremarkable. No fluid levels. Mastoid air cells: Visualized mastoid air cells are well aerated. Soft tissues: Unremarkable. IMPRESSION: No acute intracranial abnormality.
--- NOTE | 2020-10-26 02:36 | CT ---
PROCEDURE INFORMATION: Exam: CT Chest Without Contrast; Diagnostic Exam date and time: 10/26/2020 1:57 AM Age: 55 years old Clinical indication: Cough and shortness of breath and other: Covid; Additional info: Covid pos, high d dimer, hypoxia, altered mentatio TECHNIQUE: Imaging protocol: Diagnostic computed tomography of the chest without contrast. Radiation optimization: All CT scans at this facility use at least one of these dose optimization techniques: automated exposure control; mA and/or kV adjustment per patient size (includes targeted exams where dose is matched to clinical indication); or iterative reconstruction. COMPARISON: CT Chest wo Cont 01/16/2018 11:17 AM FINDINGS: Lungs: Subtle ground-glass infiltrates predominately on the right but also in the left upper lobe consistent with acute bilateral viral pneumonia. Pleural space: Unremarkable. No pneumothorax. No pleural effusion. Heart: Unremarkable. No cardiomegaly. No pericardial effusion. Aorta: Unremarkable. No aortic aneurysm. Lymph nodes: Unremarkable. No enlarged lymph nodes. Bones/joints: Unremarkable. No acute fracture. Soft tissues: Unremarkable. IMPRESSION: Acute bilateral lung infiltrates right greater than left new since the prior study dated 01/16/2018 consistent with acute bilateral viral pneumonia.
[2020-10-26] MEDS ORDERED: Acetaminophen 325 MG Tab PO PRN (03:00)
[2020-10-26] MEDS ORDERED: Ondansetron 4 MG/2 ML SDV IVPUSH PRN (03:00)
--- NOTE | 2020-10-26 03:08 | PCM.HP ---
H&P History of Present Illness - General Date of Service: 10/26/20 Admit Problem/Dx: Admission Diagnosis/Problem Admission Diagnosis/Problem Pneumonia Source of Information: Patient - History of Present Illness Initial Comments - Free Text/Narative: Is a 55-year-old female with medical history of COPD, dyslipidemia, diabetes mellitus, hypertension and chronic kidney disease. The patient presented to the emergency room with complaint of generalized weakness and malaise which has been going on for the past 1 week. Symptoms has worsened and she has been feeling dizzy. She describes the dizziness as lightheadedness. This has resulted in multiple falls in the past couple of days prompting her to go to the emergency room. Patient had seen her primary care provider 4 days ago and was started on prednisone because of back pain. At presentation today, blood sugar was greater than 600. Patient indicates that she has not been eating well as her appetite and taste has been poor. - Related Data Allergies/Adverse Reactions: Allergies Allergy/AdvReac Type Severity Reaction Status Date / Time No Known Allergies Allergy Verified 10/26/20 02:55 Home Medications: Home Meds Aspirin [Halfprin] 81 mg PO DAILY 02/19/15 [History] Desoximetasone [Topicort 0.25% Crm] 1 gm TOP BID PRN 02/19/15 [History] Albuterol [Ventolin HFA] 2 puff INH Q6H 08/10/19 [History] Albuterol/Ipratropium [Combivent Respimat] 1 puff INH QID 08/10/19 [History] Amitriptyline [Elavil] 50 mg PO BEDTIME 08/10/19 [History] DULoxetine [Cymbalta] 60 mg PO DAILY 08/10/19 [History] Diclofenac Sodium [Voltaren] 1 appful TOP BID PRN 08/10/19 [History] Gabapentin [Neurontin] 600 mg PO TID 08/10/19 [History] Glimepiride [Amaryl] 2 mg PO BID 08/10/19 [History] Meclizine HCl 25 mg PO ASDIRECTED PRN 08/10/19 [History] Metoprolol Succinate [Toprol XL] 25 mg PO DAILY 08/10/19 [History] Omeprazole 20 mg PO DAILY 08/10/19 [History] Zolpidem [Ambien] 5 mg PO BEDTIME PRN 08/10/19 [History] atorvaSTATin [Lipitor] 10 mg PO DAILY 08/10/19 [History] hydrOXYzine HCL [Hydroxyzine HCl] 25 mg PO TID PRN 08/10/19 [History] tiZANidine [Zanaflex] 4 mg PO DAILY 08/10/19 [History] traMADol HCl [Tramadol HCl] 50 mg PO BID PRN 08/10/19 [History] Past Medical History HEENT History: Reports: None Cardiovascular History: Reports: High Cholesterol, Hypertension Respiratory History: Reports: COPD Gastrointestinal History: Reports: GERD Genitourinary History: Reports: Renal Disease, Other (See Below) Other Genitourinary History: CKDIII [employer] History: Reports: Endometriosis Musculoskeletal History: Reports: Arthritis Neurological History: Reports: None Psychiatric History: Reports: Anxiety, Depression Endocrine/Metabolic History: Reports: Diabetes, Type II, Obesity/BMI 30+ Hematologic History: Reports: None, Blood Transfusion(s) Immunologic History: Reports: None Oncologic (Cancer) History: Reports: Lung Dermatologic History: Reports: Eczema Other Dermatologic History: eczema - Infectious Disease History Infectious Disease History: Reports: Chicken Pox - Past Surgical History Head Surgeries/Procedures: Reports: None Cardiovascular Surgical History: Reports: None Other Respiratory Surgeries/Procedures: Hx lung cancer, one tumor removed on right side. Female Surgical History: Reports: Hysterectomy Other Female Surgeries/Procedures: "bleeding left ovarian cyst Musculoskeletal Surgical History: Reports: Knee Replacement Oncologic Surgical History: Reports: Lobectomy Other Oncologic Surgeries/Procedures: right lower lobe removed 2014 Social & Family History - Family History Family Medical History: No Pertinent Family History - Tobacco Use Tobacco Use Status *Q: Current Status Unknown Second Hand Smoke Exposure: No - Caffeine Use Caffeine Use: Reports: Soda - Recreational Drug Use Recreational Drug Use: No - Living Situation & Occupation Living situation: Reports: with Family H&P Review of Systems - Review of Systems: Review Of Systems: See Below General: Reports: Chills, Weakness, Fatigue HEENT: Reports: Visual Changes Pulmonary: Reports: Cough Cardiovascular: Reports: No Symptoms Gastrointestinal: Reports: No Symptoms Genitourinary: Reports: No Symptoms Musculoskeletal: Reports: No Symptoms Skin: Reports: No Symptoms Psychiatric: Reports: No Symptoms Neurological: Reports: Dizziness Hematologic/Lymphatic: Reports: No Symptoms Immunologic: Reports: No Symptoms Exam - Exam Exam: See Below - Vital Signs Vital Signs: Last Vital Signs Temp 35.7 C L 10/26/20 00:39 Pulse 98 10/26/20 00:39 Resp 18 10/26/20 00:39 BP 112/101 H 10/26/20 00:39 Pulse Ox 92 L 10/26/20 00:39 Weight: 111.221 kg - Exam Quality Assessment: Supplemental Oxygen General: Alert, Oriented, Cooperative Neck: Supple, Trachea Midline, 2 Lungs: Decreased Breath Sounds Cardiovascular: Regular Rate, Regular Rhythm GI/Abdominal Exam: Normal Bowel Sounds, Soft, Non-Tender, No Organomegaly, No Distention, No Abnormal Bruit, No Mass, Pelvis Stable Extremities: Normal Inspection, Normal Range of Motion, Non-Tender, No Pedal Edema, Normal Capillary Refill - Patient Data Lab Results Last 24 hrs: Laboratory Results - last 24 hr 10/26/20 10/26/20 10/26/20 Range/Units 00:48 00:57 00:57 WBC 6.0 (5.0-10.0) 10^3/uL RBC 3.95 L (4.2-5.4) 10^6/uL Hgb 11.7 L D (12.0-16.0) g/dL Hct 35.2 L (37.0-47.0) % MCV 89.1 (80-100) fL MCH 29.6 (27.0-34.0) pg MCHC 33.2 (33.0-35.0) g/dL Plt Count 216 (150-450) 10^3/uL Neut % (Auto) 79.3 H (42.2-75.2) % Lymph % (Auto) 14.1 L (20.5-50.1) % Perry % (Auto) 6.1 (2-8) % Eos % (Auto) 0.2 L (1.0-3.0) % Baso % (Auto) 0.3 (0.0-1.0) % D-Dimer, Quantitative 856 H (0-400) ng/mL Sodium (136-145) mmol/L Potassium (3.5-5.1) mmol/L Chloride (98-107) mmol/L Carbon Dioxide (21-32) mmol/L Anion Gap (7-13) mEq/L BUN (7-18) mg/dL Creatinine (0.55-1.02) mg/dL Est Cr Clr Drug Dosing Estimated GFR (MDRD) BUN/Creatinine Ratio (No establ ref range) Glucose (74-99) mg/dL Lactic Acid (0.4-2.0) mmol/L Calcium (8.5-10.1) mg/dL Total Bilirubin (0.2-1.0) mg/dL AST (15-37) U/L ALT (14-59) U/L Alkaline Phosphatase (46-116) U/L Troponin I (0.000-0.056) ng/mL Total Protein (6.4-8.2) g/dL Albumin (3.4-5.0) g/dL Globulin Albumin/Globulin Ratio Ketones SARS CoV-2 RNA Rapid BALBIR Positive H (NEGATIVE) 10/26/20 10/26/20 10/26/20 Range/Units 00:57 00:57 00:57 WBC (5.0-10.0) 10^3/uL RBC (4.2-5.4) 10^6/uL Hgb (12.0-16.0) g/dL Hct (37.0-47.0) % MCV (80-100) fL MCH (27.0-34.0) pg MCHC (33.0-35.0) g/dL Plt Count (150-450) 10^3/uL Neut % (Auto) (42.2-75.2) % Lymph % (Auto) (20.5-50.1) % Perry % (Auto) (2-8) % Eos % (Auto) (1.0-3.0) % Baso % (Auto) (0.0-1.0) % D-Dimer, Quantitative (0-400) ng/mL Sodium 126 L (136-145) mmol/L Potassium 4.2 (3.5-5.1) mmol/L Chloride 91 L (98-107) mmol/L Carbon Dioxide 24 (21-32) mmol/L Anion Gap 15.2 H (7-13) mEq/L BUN 50 H (7-18) mg/dL Creatinine 3.13 H (0.55-1.02) mg/dL Est Cr Clr Drug Dosing TNP Estimated GFR (MDRD) 15 BUN/Creatinine Ratio 16.0 (No establ ref range) Glucose 623 H* (74-99) mg/dL Lactic Acid 1.5 (0.4-2.0) mmol/L Calcium 8.4 L (8.5-10.1) mg/dL Total Bilirubin 0.4 (0.2-1.0) mg/dL AST 34 (15-37) U/L ALT 48 (14-59) U/L Alkaline Phosphatase 145 H (46-116) U/L Troponin I < 0.017 (0.000-0.056) ng/mL Total Protein 6.6 (6.4-8.2) g/dL Albumin 2.8 L (3.4-5.0) g/dL Globulin 3.8 Albumin/Globulin Ratio 0.74 Ketones Negative SARS CoV-2 RNA Rapid BALBIR (NEGATIVE) Result Diagrams: 10/26/20 00:57 10/26/20 04:34 Problem List Initiated/Reviewed/Updated: Yes Orders Last 24hrs: Active Orders 24 hr Category Date Time Status Admission Diagnosis [ADT] Stat ADT 10/26/20 02:42 Ordered Admission Status [Patient Status] [ADT] Routine ADT 10/26/20 02:42 Active Patient Status [ADT] Routine ADT 10/26/20 03:00 Ordered Blood Glucose Check, Bedside [RC] QIDACANDBED Care 10/26/20 03:00 Ordered Cardiac Monitoring [RC] CONTINUOUS Care 10/26/20 03:02 Ordered Intake and Output [RC] QSHIFT Care 10/26/20 03:02 Ordered Oxygen Therapy [RC] PRN Care 10/26/20 03:00 Ordered Up ad Bailey [RC] ASDIRECTED Care 10/26/20 03:00 Ordered VTE/DVT Education [RC] PER UNIT ROUTINE Care 10/26/20 03:00 Ordered Vital Signs [RC] Q4H Care 10/26/20 03:00 Ordered Consistent Carbohydrate Diet [DIET] Diet 10/26/20 Breakfast Ordered BASIC METABOLIC PANEL,BMP [CHEM] AM Lab 10/26/20 05:11 Ordered CULTURE SPUTUM + SMEAR [RM] Stat Lab 10/26/20 03:00 Ordered DRUG SCREEN URINE BIORAD [URCHEM] Stat Lab 10/26/20 00:45 Ordered HEPATIC FUNCTION PANEL,HFP [CHEM] AM Lab 10/26/20 05:11 Ordered UA RFX CHITRA AND CULT IF INDIC [URIN] Stat Lab 10/26/20 00:45 Ordered Acetaminophen [TylenoL] Med 10/26/20 03:00 Ordered 650 mg PO Q4H PRN Heparin Sodium Med 10/26/20 06:00 Ordered 5,000 units SUBCUT Q8HR Ondansetron [Zofran] Med 10/26/20 03:00 Ordered 4 mg IVPUSH Q6H PRN Sodium Chloride 0.9% [Normal Saline] 1,000 ml Med 10/26/20 03:00 Ordered IV ASDIRECTED Resuscitation Status Routine Resus Stat 10/26/20 03:00 Ordered Assessment/Plan Comment:: Assessment/plan: #. Acute hypoxemic respiratory failure This is also a result of COVID-[address] scan showed bilateral pulmonary infiltrate #. COVID-[address] scan showed bilateral effusions. #. Diabetes mellitus with hyperglycemia Blood sugar is markedly elevated to greater than 600 Steroid started recently is likely contributing #. Hypertension Suboptimal control #. Hyponatremia Likely due to hyperglycemia #. COPD Patient does have diminished air entry bilaterally #. Recurrent falls Patient was complained of dizziness Possibly due to dehydration #. Acute on chronic kidney disease Serum creatinine has gone up to greater than 3 Likely due to probably due to dehydration plan: Start patient on gentle hydration Supplemental oxygen Patient is not a candidate for remdesivir because of acute on chronic kidney disease I will proceed to transfuse with 1 unit of convalescent plasma Monitor blood sugar before meals and at bedtime Start patient on insulin Lantus Start patient on insulin NovoLog with meals Monitor blood sugar Start patient on dexamethasone. Start empiric antibiotics with intravenous ceftriaxone Intravenous azithromycin Send sample for procalcitonin level
[2020-10-26] MEDS ORDERED: 50% Dextrose in Water 50 ML Syringe IV PRN ×5 (03:21→12:33)
[2020-10-26] MEDS ORDERED: Glucagon,Human Recombinant 1 MG Vial IM PRN ×5 (03:21→12:33)
[2020-10-26] MEDS ORDERED: Insulin Lispro 100 Units/ML 3 ML Vial SUBCUT ONE ×3 (03:30→21:08)
[2020-10-26] MEDS ORDERED: Insulin Glarg,Human.Rec.Analog 100 Unit/ML SUBCUT SCH (03:30)
[2020-10-26] MEDS: Dexamethasone 4 MG/ML SDV IVPUSH SCH (04:17)
[2020-10-26] MEDS: Sodium Chloride 0.9% 1,000 ML IV SCH ×2 (04:19→16:13)
[2020-10-26 05:01] LABS: ANION GAP 12.7 mEq/L (7-13)
[2020-10-26] MEDS: Heparin Sodium 5,000 Units/ML Vial SUBCUT SCH ×3 (05:53→21:37)
[2020-10-26] MEDS: Insulin Lispro 100 Units/ML 3 ML Vial SUBCUT SCH ×5 (09:38→21:30)
[2020-10-26] MEDS ORDERED: Insulin Glarg,Human.Rec.Analog 100 Unit/ML SUBCUT ONE ×3 (10:02→21:10)
[2020-10-26] MEDS ORDERED: traMADol 50 MG Tab PO PRN (14:28)
[2020-10-26] MEDS ORDERED: Albuterol 6.7 GM Inhaler INH PRN (14:28)
[2020-10-26] MEDS ORDERED: Non-Formulary Medication 1 Each (Meclizine Hcl [Meclizine Hcl] 25 MG) PO PRN (14:28)
[2020-10-26] MEDS ORDERED: DESOXIMETASONE TOP PRN (14:28)
[2020-10-26] MEDS ORDERED: DICLOFENAC SODIUM TOP PRN (14:28)
[2020-10-26] MEDS ORDERED: Non-Formulary Medication 1 Each (Tizanidine [Zanaflex] 4 MG) PO SCH (14:30)
[2020-10-26] MEDS ORDERED: Glimepiride 2 MG Tab PO SCH (14:30)
[2020-10-26] MEDS ORDERED: hydrOXYzine HCl 25 MG Tab PO PRN (16:00)
[2020-10-26] MEDS: DULoxetine 30 MG Cap PO SCH (16:01)
[2020-10-26] MEDS: Metoprolol Succinate 25 MG Tab.ER PO SCH (16:01)
[2020-10-26] MEDS: cefTRIAXone 1 GM in Sodium Chloride 0.9% 50 ML IV SCH (16:04)
[2020-10-26] MEDS: atorvaSTATin 10 MG Tab PO SCH (16:05)
[2020-10-26] MEDS: Nystatin Susp 100,000 Unit/ML 5 ML UD Cup PO SCH ×2 (16:08→20:36)
[2020-10-26] MEDS: Omeprazole 20 MG Cap.CR PO SCH (16:12)
[2020-10-26] MEDS: Azithromycin 500 MG in Sodium Chloride 0.9% 250 ML IV SCH (16:46)
[2020-10-26] MEDS: Gabapentin 100 MG Cap PO SCH (20:31)
[2020-10-26] MEDS: Glimepiride 2 MG Tab PO SCH (20:31)
[2020-10-26] MEDS: Amitriptyline 25 MG Tab PO SCH (20:41)
[2020-10-26] MEDS ORDERED: Non-Formulary Medication 1 Each (Gabapentin 600 MG) PO SCH (21:00)
[2020-10-26] MEDS ORDERED: Zolpidem 5 MG Tab PO PRN (21:00)
[2020-10-27] MEDS: Dexamethasone 4 MG/ML SDV IVPUSH SCH (03:57)
[2020-10-27 06:11] LABS: ANION GAP 13.8 mEq/L (7-13)
[2020-10-27] MEDS: Omeprazole 20 MG Cap.CR PO SCH (06:15)
[2020-10-27] MEDS: Heparin Sodium 5,000 Units/ML Vial SUBCUT SCH ×3 (06:16→20:59)
[2020-10-27] MEDS: Sodium Chloride 0.9% 1,000 ML IV SCH (06:24)
[2020-10-27] MEDS: Nystatin Susp 100,000 Unit/ML 5 ML UD Cup PO SCH ×4 (08:16→20:54)
[2020-10-27] MEDS: Gabapentin 100 MG Cap PO SCH ×3 (08:16→20:54)
[2020-10-27] MEDS: Glimepiride 2 MG Tab PO SCH ×2 (08:17→20:52)
[2020-10-27] MEDS: DULoxetine 30 MG Cap PO SCH (08:18)
[2020-10-27] MEDS: Aspirin 81 MG Tab.EC PO SCH (08:19)
[2020-10-27] MEDS: atorvaSTATin 10 MG Tab PO SCH (08:19)
[2020-10-27] MEDS: Metoprolol Succinate 25 MG Tab.ER PO SCH (08:20)
[2020-10-27] MEDS: Insulin Lispro 100 Units/ML 3 ML Vial SUBCUT SCH ×7 (08:25→20:57)
[2020-10-27] MEDS ORDERED: Insulin Glarg,Human.Rec.Analog 100 Unit/ML SUBCUT SCH (09:00)
--- NOTE | 2020-10-27 09:54 | PCM.PN ---
- General Info Date of Service: 10/27/20 - Review of Systems General: Reports: Weakness, Malaise, Chills Pulmonary: Reports: Shortness of Breath Cardiovascular: Reports: Chest Pain, Palpitations, Dyspnea on Exertion Genitourinary: Reports: Flank Pain Musculoskeletal: Reports: Foot Pain - Patient Data Vitals - Most Recent: Last Vital Signs Temp 36.0 C L 10/27/20 08:00 Pulse 71 10/27/20 08:20 Resp 18 10/27/20 08:00 BP 126/78 10/27/20 08:20 Pulse Ox 92 L 10/27/20 08:00 Weight - Most Recent: 126.099 kg I&O - Last 24 Hours: Intake & Output 10/26/20 10/27/20 10/27/20 22:59 06:59 14:59 Intake Total 2476 1444 Output Total 800 1000 Balance 1676 444 Lab Results Last 24 Hours: Laboratory Results - last 24 hr 10/26/20 10/26/20 10/26/20 Range/Units 12:22 14:15 14:15 WBC (5.0-10.0) 10^3/uL RBC (4.2-5.4) 10^6/uL Hgb (12.0-16.0) g/dL Hct (37.0-47.0) % MCV (80-100) fL MCH (27.0-34.0) pg MCHC (33.0-35.0) g/dL Plt Count (150-450) 10^3/uL Sodium (136-145) mmol/L Potassium (3.5-5.1) mmol/L Chloride (98-107) mmol/L Carbon Dioxide (21-32) mmol/L Anion Gap (7-13) mEq/L BUN (7-18) mg/dL Creatinine (0.55-1.02) mg/dL Est Cr Clr Drug Dosing mL/min Estimated GFR (MDRD) Glucose (74-99) mg/dL POC Glucose > 500 H* (70-105) mg/dl Calcium (8.5-10.1) mg/dL Urine Color Yellow (YELLOW) Urine Appearance Cloudy (CLEAR) Urine pH 5.5 (5.0-9.0) Ur Specific [place] 1.010 (1.005-1.030) Urine Protein 30 H (NEGATIVE) Urine Glucose (UA) >=1000 H (NEGATIVE) Urine Ketones Negative (NEGATIVE) Urine Occult Blood Small H (NEGATIVE) Urine Nitrite Positive H (NEGATIVE) Urine Bilirubin Negative (NEGATIVE) Urine Urobilinogen 0.2 (0.2-1.0) mg/dL Ur Leukocyte Esterase Large H (NEGATIVE) Urine RBC 0-5 /HPF Urine WBC 75-100 H (0-5/HPF) /HPF Ur Epithelial Cells Rare (NOT SEEN) /HPF Amorphous Sediment Few (NOT SEEN) /HPF Urine Bacteria Moderate H (0-FEW/HPF) /HPF Urine Opiates Screen Negative (NEGATIVE) Ur Oxycodone Screen Negative (NEGATIVE) Urine Methadone Screen Negative (NEGATIVE) Ur Barbiturates Screen Negative (NEGATIVE) U Tricyclic Antidepress Positive H (NEGATIVE) Ur Phencyclidine Scrn Negative (NEGATIVE) Ur Amphetamine Screen Negative (NEGATIVE) U Methamphetamines Scrn Negative (NEGATIVE) Urine MDMA Screen Negative (NEGATIVE) U Benzodiazepines Scrn Negative (NEGATIVE) Urine Cocaine Screen Negative (NEGATIVE) U Marijuana (THC) Screen Negative (NEGATIVE) 10/26/20 10/26/20 10/27/20 Range/Units 16:17 20:27 05:46 WBC 5.9 (5.0-10.0) 10^3/uL RBC 3.59 L (4.2-5.4) 10^6/uL Hgb 10.7 L (12.0-16.0) g/dL Hct 32.1 L (37.0-47.0) % MCV 89.4 (80-100) fL MCH 29.8 (27.0-34.0) pg MCHC 33.3 (33.0-35.0) g/dL Plt Count 244 (150-450) 10^3/uL Sodium (136-145) mmol/L Potassium (3.5-5.1) mmol/L Chloride (98-107) mmol/L Carbon Dioxide (21-32) mmol/L Anion Gap (7-13) mEq/L BUN (7-18) mg/dL Creatinine (0.55-1.02) mg/dL Est Cr Clr Drug Dosing mL/min Estimated GFR (MDRD) Glucose (74-99) mg/dL POC Glucose 463 H* 349 H (70-105) mg/dl Calcium (8.5-10.1) mg/dL Urine Color (YELLOW) Urine Appearance (CLEAR) Urine pH (5.0-9.0) Ur Specific [place] (1.005-1.030) Urine Protein (NEGATIVE) Urine Glucose (UA) (NEGATIVE) Urine Ketones (NEGATIVE) Urine Occult Blood (NEGATIVE) Urine Nitrite (NEGATIVE) Urine Bilirubin (NEGATIVE) Urine Urobilinogen (0.2-1.0) mg/dL Ur Leukocyte Esterase (NEGATIVE) Urine RBC /HPF Urine WBC (0-5/HPF) /HPF Ur Epithelial Cells (NOT SEEN) /HPF Amorphous Sediment (NOT SEEN) /HPF Urine Bacteria (0-FEW/HPF) /HPF Urine Opiates Screen (NEGATIVE) Ur Oxycodone Screen (NEGATIVE) Urine Methadone Screen (NEGATIVE) Ur Barbiturates Screen (NEGATIVE) U Tricyclic Antidepress (NEGATIVE) Ur Phencyclidine Scrn (NEGATIVE) Ur Amphetamine Screen (NEGATIVE) U Methamphetamines Scrn (NEGATIVE) Urine MDMA Screen (NEGATIVE) U Benzodiazepines Scrn (NEGATIVE) Urine Cocaine Screen (NEGATIVE) U Marijuana (THC) Screen (NEGATIVE) 10/27/20 10/27/20 Range/Units 05:46 08:10 WBC (5.0-10.0) 10^3/uL RBC (4.2-5.4) 10^6/uL Hgb (12.0-16.0) g/dL Hct (37.0-47.0) % MCV (80-100) fL MCH (27.0-34.0) pg MCHC (33.0-35.0) g/dL Plt Count (150-450) 10^3/uL Sodium 142 D (136-145) mmol/L Potassium 3.8 (3.5-5.1) mmol/L Chloride 107 D (98-107) mmol/L Carbon Dioxide 25 (21-32) mmol/L Anion Gap 13.8 H (7-13) mEq/L BUN 44 H (7-18) mg/dL Creatinine 2.22 H (0.55-1.02) mg/dL Est Cr Clr Drug Dosing 28.17 mL/min Estimated GFR (MDRD) 23 Glucose 183 H (74-99) mg/dL POC Glucose 283 H (70-105) mg/dl Calcium 8.4 L (8.5-10.1) mg/dL Urine Color (YELLOW) Urine Appearance (CLEAR) Urine pH (5.0-9.0) Ur Specific [place] (1.005-1.030) Urine Protein (NEGATIVE) Urine Glucose (UA) (NEGATIVE) Urine Ketones (NEGATIVE) Urine Occult Blood (NEGATIVE) Urine Nitrite (NEGATIVE) Urine Bilirubin (NEGATIVE) Urine Urobilinogen (0.2-1.0) mg/dL Ur Leukocyte Esterase (NEGATIVE) Urine RBC /HPF Urine WBC (0-5/HPF) /HPF Ur Epithelial Cells (NOT SEEN) /HPF Amorphous Sediment (NOT SEEN) /HPF Urine Bacteria (0-FEW/HPF) /HPF Urine Opiates Screen (NEGATIVE) Ur Oxycodone Screen (NEGATIVE) Urine Methadone Screen (NEGATIVE) Ur Barbiturates Screen (NEGATIVE) U Tricyclic Antidepress (NEGATIVE) Ur Phencyclidine Scrn (NEGATIVE) Ur Amphetamine Screen (NEGATIVE) U Methamphetamines Scrn (NEGATIVE) Urine MDMA Screen (NEGATIVE) U Benzodiazepines Scrn (NEGATIVE) Urine Cocaine Screen (NEGATIVE) U Marijuana (THC) Screen (NEGATIVE) Car Results Last 24 Hours: Microbiology 10/26/20 14:15 Urine Culture - Preliminary Urine, Voided Med Orders - Current: Current Medications Acetaminophen (Tylenol) 650 mg PO Q4H PRN PRN Reason: Pain (Mild 1-3)/fever Albuterol (Proventil Hfa) 0 gm INH Q6H PRN PRN Reason: shortness of breath Amitriptyline HCl (Elavil) 50 mg PO BEDTIME [facility] Last Admin: 10/26/20 20:41 Dose: 50 mg Documented by: Aspirin (Halfprin) 81 mg PO DAILY [facility] Last Admin: 10/27/20 08:19 Dose: 81 mg Documented by: Atorvastatin Calcium (Lipitor) 10 mg PO DAILY [facility] Last Admin: 10/27/20 08:19 Dose: 10 mg Documented by: Dexamethasone (Decadron) 6 mg IVPUSH Q24H [facility] Last Admin: 10/27/20 03:57 Dose: 6 mg Documented by: Dextrose/Water (Dextrose 50% In Water) 50 ml IV ASDIRECTED PRN PRN Reason: Hypoglycemia Duloxetine HCl (Cymbalta) 60 mg PO DAILY [facility] Last Admin: 10/27/20 08:18 Dose: 60 mg Documented by: Gabapentin (Neurontin) 200 mg PO TID [facility] Last Admin: 10/27/20 08:16 Dose: 200 mg Documented by: Glimepiride (Amaryl) 1 mg PO BID [facility] Last Admin: 10/27/20 08:17 Dose: 1 mg Documented by: Glucagon (Glucagen) 1 mg IM ASDIRECTED PRN PRN Reason: Hypoglycemia Heparin Sodium (Porcine) (Heparin Sodium) 5,000 units SUBCUT Q8HR [facility] Last Admin: 10/27/20 06:16 Dose: 5,000 units Documented by: Hydroxyzine HCl (Atarax) 25 mg PO TID PRN PRN Reason: Anxiety Sodium Chloride (Normal Saline) 1,000 mls @ 75 mls/hr IV ASDIRECTED [facility] Last Admin: 10/27/20 06:24 Dose: 75 mls/hr Documented by: Ceftriaxone Sodium 1 gm/ (Sodium Chloride) 50 mls @ 100 mls/hr IV Q24H [facility] Last Admin: 10/26/20 16:04 Dose: 100 mls/hr Documented by: Azithromycin 500 mg/ Sodium (Chloride) 250 mls @ 250 mls/hr IV Q24H [facility] Last Infusion: 10/26/20 17:50 Dose: Infused Documented by: Insulin Glargine (Lantus) 60 unit SUBCUT DAILY [facility] Insulin Human Lispro (Humalog) 0 unit SUBCUT WITHMEALSANDBED [facility]; Protocol Last Admin: 10/27/20 08:26 Dose: 9 units Documented by: Insulin Human Lispro (Humalog) 30 unit SUBCUT TIDMEALS [facility] Metoprolol Succinate (Toprol Xl) 25 mg PO DAILY [facility] Last Admin: 10/27/20 08:20 Dose: 25 mg Documented by: Non-Formulary Medication (Albuterol/Ipratropium [Combivent Respimat]) 1 puff INH QID [facility] Non-Formulary Medication (Diclofenac Sodium [Voltaren]) 1 appful TOP BID PRN PRN Reason: Pain Non-Formulary Medication (Desoximetasone [Topicort 0.25% Crm]) 1 gm TOP BID PRN PRN Reason: Rash Non-Formulary Medication (Meclizine Hcl [Meclizine Hcl]) 25 mg PO ASDIRECTED PRN PRN Reason: travel Non-Formulary Medication (Tizanidine [Zanaflex]) 4 mg PO DAILY [facility] Nystatin (Mycostatin) 5 ml PO QID [facility] Last Admin: 10/27/20 08:16 Dose: 5 ml Documented by: Omeprazole (Omeprazole) 20 mg PO ACBREAKFAST [facility] Last Admin: 10/27/20 06:15 Dose: 20 mg Documented by: Ondansetron HCl (Zofran) 4 mg IVPUSH Q6H PRN PRN Reason: Nausea/Vomiting Tramadol HCl (Ultram) 50 mg PO BID PRN PRN Reason: Pain (moderate 4-6) Zolpidem Tartrate (Ambien) 5 mg PO BEDTIME PRN PRN Reason: Sleep Discontinued Medications Glimepiride (Amaryl) 2 mg PO BID [facility] Last Admin: 10/26/20 16:32 Dose: Not Given Documented by: Sodium Chloride (Normal Saline) 1,000 mls @ 999 mls/hr IV .BOLUS ONE Stop: 10/26/20 01:52 Last Admin: 10/26/20 01:06 Dose: 999 mls/hr Documented by: Insulin Glargine (Lantus) 40 unit SUBCUT DAILY [facility] Last Admin: 10/26/20 04:17 Dose: 40 units Documented by: Insulin Glargine (Lantus) 48 unit SUBCUT DAILY [facility] Last Admin: 10/27/20 08:27 Dose: 48 units Documented by: Insulin Glargine (Lantus) 10 unit SUBCUT ONETIME ONE Stop: 10/26/20 10:03 Last Admin: 10/26/20 10:19 Dose: 10 units Documented by: Insulin Glargine (Lantus) 20 unit SUBCUT ONETIME ONE Stop: 10/26/20 12:33 Last Admin: 10/26/20 13:02 Dose: 20 units Documented by: Insulin Glargine (Lantus) 10 unit SUBCUT ONETIME ONE Stop: 10/26/20 21:11 Last Admin: 10/26/20 21:36 Dose: 10 units Documented by: Insulin Human Lispro (Humalog) 10 unit SUBCUT TIDMEALS [facility] Last Admin: 10/26/20 09:48 Dose: 10 units Documented by: Insulin Human Lispro (Humalog) 20 unit SUBCUT ONETIME ONE Stop: 10/26/20 03:31 Last Admin: 10/26/20 04:09 Dose: 20 units Documented by: Insulin Human Lispro (Humalog) 20 unit SUBCUT TIDMEALS [facility] Last Admin: 10/27/20 08:25 Dose: 20 units Documented by: Insulin Human Lispro (Humalog) 10 unit SUBCUT ONETIME ONE Stop: 10/26/20 12:34 Last Admin: 10/26/20 13:01 Dose: 10 units Documented by: Insulin Human Lispro (Humalog) 10 unit SUBCUT ONETIME ONE Stop: 10/26/20 21:09 Last Admin: 10/26/20 21:33 Dose: 10 units Documented by: Insulin Human Regular (Humulin R) 5 unit IV ONETIME ONE Stop: 10/26/20 00:53 Last Admin: 10/26/20 01:06 Dose: 5 unit Documented by: Non-Formulary Medication (Gabapentin) 600 mg PO TID [facility] - Exam General: Alert, Oriented, Cooperative Lungs: Decreased Breath Sounds Cardiovascular: Regular Rate, Regular Rhythm GI/Abdominal Exam: Normal Bowel Sounds, Soft, Non-Tender, No Organomegaly, No Distention, No Abnormal Bruit, No Mass, Pelvis Stable Extremities: Normal Inspection, Normal Range of Motion, Non-Tender, No Pedal Edema, Normal Capillary Refill Sepsis Event Note - Evaluation Sepsis Screening Result: No Definite Risk - Focused Exam Vital Signs: Vital Signs Temp Pulse Pulse Resp BP BP BP 10/27/20 08:20 71 126/78 10/27/20 08:00 36.0 C L 71 18 126/78 10/27/20 04:05 35.7 C L 62 16 102/62 10/27/20 00:00 35.7 C L 77 18 127/77 Pulse Ox 10/27/20 08:20 10/27/20 08:00 92 L 10/27/20 04:05 92 L 10/27/20 00:00 93 L - Problem List Review Problem List Initiated/Reviewed/Updated: Yes - My Orders Last 24 Hours: My Active Orders 10/26/20 11:06 FRESH FROZEN PLASMA [BBK] Routine 10/26/20 14:27 Code Status [Resuscitation Status] Routine 10/26/20 14:28 Albuterol [Proventil HFA] 0 gm INH Q6H PRN Desoximetasone [Topicort 0.25% Crm] 1 gm TOP BID PRN Diclofenac Sodium [Voltaren] 1 appful TOP BID PRN Meclizine HCl [Meclizine HCl] 25 mg PO ASDIRECTED PRN traMADol [Ultram] 50 mg PO BID PRN 10/26/20 14:30 RT Post Treatment Assessment [RC] Click to Edit RT Pre-Treatment Assessment [RC] Click to Edit tiZANidine [Zanaflex] 4 mg PO DAILY 10/26/20 15:30 Azithromycin [Zithromax] 500 mg Sodium Chloride 0.9% [Normal Saline (AdvBag)] 250 ml IV Q24H 10/26/20 16:00 DULoxetine [Cymbalta] 60 mg PO DAILY Metoprolol Succinate [Toprol XL] 25 mg PO DAILY Omeprazole 20 mg PO ACBREAKFAST atorvaSTATin [Lipitor] 10 mg PO DAILY cefTRIAXone [Rocephin] 1 gm Sodium Chloride 0.9% [Normal Saline] 50 ml IV Q24H hydrOXYzine HCL [Atarax] 25 mg PO TID PRN 10/26/20 17:00 Albuterol/Ipratropium [Combivent Respimat] 1 puff INH QID Nystatin [Mycostatin] 5 ml PO QID 10/26/20 21:00 Amitriptyline [Elavil] 50 mg PO BEDTIME Gabapentin [Neurontin] 200 mg PO TID Glimepiride [Amaryl] 1 mg PO BID Insulin Lispro [HumaLOG] See Protocol SUBCUT WITHMEALSANDBED Zolpidem [Ambien] 5 mg PO BEDTIME PRN 10/27/20 05:46 GLYCOSYLATED HEMOGLOBIN,HGBA1C [CHEM] Routine PROCALCITONIN [REF] Routine 10/27/20 09:00 Aspirin [Halfprin] 81 mg PO DAILY 10/27/20 09:40 Foot 2V Lt [CR] Routine 10/27/20 12:00 Insulin Lispro [HumaLOG] 30 unit SUBCUT TIDMEALS 10/28/20 09:00 Insulin Glarg,Human.Rec.Analog [LantUS] 60 unit SUBCUT DAILY - Plan Plan:: Assessment/plan: #. Acute hypoxemic respiratory failure This is also a result of COVID-[address] scan showed bilateral pulmonary infiltrate #. COVID-[address] scan showed bilateral infiltrate #. Possible acute pyelonephritis Patient has UTI Also has bilateral flank pain Urine culture is growing gram-negative rods #. Diabetes mellitus with hyperglycemia Suboptimal control Steroid started recently is likely contributing #. Hypertension Suboptimal control #. Hyponatremia Likely due to hyperglycemia #. COPD Patient does have diminished air entry bilaterally #. Recurrent falls Patient complained of dizziness Possibly due to dehydration #. Acute on chronic kidney disease Serum creatinine has gone up to greater than 3 Likely due to probably due to dehydration #. Left foot pain Patient has some bruises on the left foot. plan: Patient's oxygen saturation is improving. She is now not 94% on room air. However still complain of shortness of breath Provide incentive spirometry and encourage use Consult physical therapy Consult Occupational Therapy Obtain x-ray of the left foot to rule out fracture Continue antimicrobial
[2020-10-27 10:03] LABS: HEMOGLOBIN A1C > 14.0 % (<5.7)
[2020-10-27] MEDS ORDERED: 50% Dextrose in Water 50 ML Syringe IV PRN (12:25)
[2020-10-27] MEDS ORDERED: Glucagon,Human Recombinant 1 MG Vial IM PRN (12:25)
[2020-10-27] MEDS ORDERED: Insulin Glarg,Human.Rec.Analog 100 Unit/ML SUBCUT ONE (13:00)
[2020-10-27] MEDS: Albuterol 6.7 GM Inhaler INH SCH ×3 (13:25→20:56)
--- NOTE | 2020-10-27 13:33 | CR ---
EXAMINATION: Foot 2V Lt SEX: Female AGE: 55 years CLINICAL HISTORY: 55-year-old female left foot pain (fall). INTERPRETATION: Abnormal. 1. Comminuted distal mid diaphyseal fracture fourth metatarsal. 2. Associated nondisplaced transverse fracture base of the fifth metatarsal. 3. Good bone mineral density for age and gender. 4. Small heel spur at the insertion of Achilles tendon posteriorly on the os calcis. Mild pes planus. CONCLUSION: Fractures of the fourth and fifth metatarsals.
--- OUTSIDE RECORDS SUMMARY | 2020-10-27 13:42 | XMSREPORT | Referral Summary ---
:1965 Author Organization [facility] Address [address] [place] [address] Care Team Providers Name Role Phone Candy Wilder RN Unavailable Unavailable Fausto Lopes RN Unavailable Unavailable Osman Rocha RN Patient Operations Engineer Unavailable Kayla Ortega MD Primary Care Provider Reason for Referral Consult (Routine) Status Reason Specialty Diagnoses / Referred By Referred To Procedures Contact Contact Auth Not Service/Special Internal Diagnoses Viral upper respiratory tract infection REINA Ortega Needed ist Not Medicine Sb LOMELI Available MD Kayla [facility] [address] [place] [address] [place] [phone] Phone: Encounter Details Date Type Department Care Team Description 10/27/2020 Orders Only [place] [facility] upper 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 MONITOR) W/DEVICE KIT Lancets Misc. MISC 2 Each by Does not 180 Each 3 01/05/2015 Active apply route 2 times daily. albuterol (PROVENTIL Inhale 2 Puffs into 8.5 g 1 8 Active HFA, VENTOLIN HFA, the lungs every 6 PROAIR HFA) 108 (90 hours as needed for Base) MCG/ACT Wheezing for up to inhalerIndications: 360 days. Bronchitis budesonide-formoterol Inhale 2 Puffs into 1 Inhaler 0 01/09/20 18 Active 80-4.5mcg (SYMBICORT) the lungs 2 times 80-4.5 MCG/ACT IN daily for 14 days. inhalerIndications: Bronchitis Additional Information Patient taking differently: 2 Puff Inhalation 2 times daily PRN, Reported on 03/02/2020 Spacer/Aero-Holding Chambers (E-Z Use with inhaler 1 Each 0 01/29/2018 Active SPACER) DEVIIndications: Tobacco dependence ipratropium-albuterol (COMBIVENT Inhale 1 Puff into 1 Inhaler 2 01/29/2018 Active RESPIMAT) 20-100 MCG/ACT the lungs 4 times inhalerIndications: Chronic daily. obstructive pulmonary disease with acute exacerbation Additional Information Patient taking differently: 1 Puff Inhalation PRN, Reported on 03/02/2020 aspirin EC (ECOTRIN) 81 Take 81 mg by mouth 0 Active MG EC tablet daily. diclofenac sodium Apply 1 g topically 2 100 g 4 Active (VOLTAREN) 1 % times daily. 9 Transdermal Gel desoximetasone Apply bid prn but no 15 g 1 Active (TOPICORT) 0.25 % cream longer than 2 weeks 9 straight CONTOUR NEXT TEST strip TEST SUGAR EVERY 180 Strip 1 Active MORNING AND NEEDED. 9 SELENE MICROLET LANCETS USE TO TEST BLOOD 100 Each 1 Active MISC SUGAR 4 TIMES DAILY 9 FOR TYPE 2 DM Multiple Take 1 Tab by mouth 0 Active Vitamins-Minerals daily. (MULTIVITAMIN ADULT) TABS triamcinolone acetonide Apply to the affected 30 g 0 05/0 Active (KENALOG) 0.1 % ointment area twice a day. 0 calcitRIOL (ROCALTROL) Take 1 Cap by mouth 45 Cap 3 02 Active 0.5 MCG capsule every 48 hours. 0 1 DULoxetine (CYMBALTA) 60 TAKE ONE CAPSULE BY 30 Cap 5 06/05 Active MG CR capsule MOUTH ONCE DAILY 0 metoproloL succinate Take 1 Tab by mouth 30 Tab 11 Active (TOPROL-XL) 50 MG XL daily. 0 1 tablet amLODIPine (NORVASC) 10 Take 1 Tab by mouth 30 Tab 11 Active MG tablet daily for 360 days. 0 1 liraglutide (VICTOZA) 18 Inject 1.8 mg into the 3 Each 3 Active MG/3ML injection skin daily. 0 ipratropium-albuteroL Take 3 mL by 30 Vial 6 Active (DUONEB) 0.5-2.5 (3) nebulization as needed 0 MG/3ML SOLN nebulizer for Wheezing. solution traMADoL (ULTRAM) 50 MG Max of 400mg in 24 20 Tab 1 02 Active tablet hours 0 tiZANidine (ZANAFLEX) 4 TAKE ONE TABLET BY 84 Tab 1 02 Active MG tablet MOUTH THREE (3) TIMES 0 DAILY hydrOXYzine HCL (ATARAX) TAKE ONE (1) TAB BY 60 Tab 1 08/25 Active 25 MG tablet MOUTH THREE (3) TIMES 0 DAILY NEEDED FOR ANXIETY. insulin detemir 100 Inject 48 Units into 1440 Units 0 09/07/20 2 Active UNIT/ML SC injection the skin nightly for 0 30 days. Dispense : Pen CHANTIX CONTINUING MONTH TAKE ONE (1) TAB BY 56 Tab 2 09/08 Active WILLIAM 1 MG tablet MOUTH TWO (2) TIMES 0 DAILY FOR 90 DAYS. omeprazole (PRILOSEC) 20 TAKE ONE (1) CAP BY 90 Cap 10 09/21 Active MG capsule MOUTH DAILY. 0 atorvastatin (LIPITOR) Take 1 Tab by mouth 90 Tab 11 2 02 Active 20 MG tablet daily. 0 1 meclizine (ANTIVERT) 25 TAKE ONE TABLET BY 30 Tab 0 02 Active MG tablet MOUTH ONE (1) HOUR 0 BEFORE TRAVEL REPEAT EVERY 12-24 HOURS NEEDED gabapentin (NEURONTIN) TAKE ONE TABLET THREE 84 Tab 0 10/08 Active 600 MG tablet (3) TIMES DAILY FOR 28 0 DAYS zolpidem (AMBIEN) 10 MG TAKE ONE (1) TAB BY 28 Tab 0 Active tabletIndications: MOUTH NIGHTLY 0 Insomnia, unspecified NEEDED FOR SLEEP. type predniSONE (DELTASONE) Take 1 Tab by mouth 5 Tab 0 02 Active 10 MG tablet daily. 0 1 amitriptyline (ELAVIL) TAKE ONE (1) TAB BY 30 Tab 1 02 Active 50 MG tabletIndications: MOUTH NIGHTLY 0 Neuropathy NEEDED FOR SLEEP. documented as of this encounter (statuses as of 10/27/2020) Active Problems Patient Care Coordination Note Authorization To Disclose Clinical Infor mation ONLY in effect for 12 months from 03/07/18 may share with daughter Alicja Coffey [phone] and Veronica Kelsey [phone]. SW Plan of Care Provider Follow-up: Every 6 months and P RN Health Senior Energy Market Coordinator Follow-up: Every 3 months a lela PRN Community Resources: Comments: Checking fasting blood sugars; goal for fasting readings 70-140. Problem Noted Date Persistent proteinuria 03/27/2020 Anemia, unspecified type 03/07/2020 Borderline blood pressure 03/07/2020 RUQ pain 03/07/2020 Severe sepsis with septic shock 03/04/2020 Hyponatremia 03/04/2020 E coli bacteremia 03/02/2020 Morbid obesity with BMI of 40.0-44.9, adult 03/02/2020 Sepsis due to Escherichia coli with acute renal failur e 02/29/2020 Chronic kidney disease-mineral and bone disorder 05/22 Anemia of chronic renal failure, stage 3 (moderate) Lumbar facet joint syndrome 03/22/2019 Sacroiliac joint dysfunction of both sides, left>right 03/22/2019 Class 3 severe obesity in adult 03/22/2019 Weight gain x 60 pounds post left TKA July 2018 0 03/22/2019 Light cigarette smoker 03/22/2019 Encounter for chronic pain management 03/22/2019 Encounter for tobacco use cessation counseling 019 Spinal stenosis of lumbar region without neurogenic cl audication 02/26/2019 Biceps tendonitis, right 08/20/2018 S/P total knee arthroplasty, left 07/31/2018 Closed nondisplaced fracture of proximal phalanx of le sser toe of right 07/31/2018 foot, initial encounter Stage 3 chronic kidney disease 05/15/2018 Overview: IMO Update 08/06/2020 Primary osteoarthritis of left knee 04/06/2018 Neuropathy 07/01/2016 LYNDSAY (acute kidney injury) 05/12/2016 Acute on chronic kidney failure 11/25/2015 Hypomagnesemia 09/22/2015 Stage I adenocarcinoma of lung, right 08/10/2015 Overview: Staged as stage IB (pT2a N0 Mx) right gabby ng mucinous adenocarcinoma per Dr. Espinoza's notes Microalbuminuria 07/30/2015 Essential hypertension 07/30/2015 Diabetes mellitus type II, non insulin dependent 07/30 Bone metabolism disorder 07/30/2015 Dyslipidemia 07/30/2015 Nonsquamous nonsmall cell neoplasm of right lung 07/22 Lung cancer, lower lobe 07/22/2015 Overview: ICD-10 Endometriosis 07/12/2015 Overview: S/p tlh/bso Dyslipidemia (high LDL; low HDL) 04/01/2011 Overview: March: 200/92/42/140 Obesity Overview: Chronic - 2013 BMI 35 Nicotine addiction Overview: Chronic smoker + 2nd hand smoke @ [employer] IGT (impaired glucose tolerance) Overview: h/o gestational diabetes; 04/01/11 FBS 18 5 / HA1c 7.3 (as of 2013, no Rx) OA (osteoarthritis) Overview: LEFT knee. Eczema Overview: Seasonal - hands and post auricular documented as of this encounter (statuses as of 10/27/2020) Resolved Problems Problem Noted Date Resolved Date S/P laparoscopic hysterectomy 08/14/2015 03/11/2020 Overview: tlh/rso Encounter for removal of sutures 05/25/2015 015 documented as of this encounter (statuses as of 10/27/2020) Immunizations Name Administration Dates Next Due INFL (IIV3 W/P) 08/12/2013, 08/22/2012, 08/25/2010 INFL (IIV4 P/F) 08/19/2020, 09/24/2019, 07/26/2017, 07/08 PCV13 (PNEUMOCOCCAL) 09/24/2019 PPSV23 (Pneumococcal) 07/29/2016 TDAP 12/29/2014 Tetanus Toxoid 01/24/2000 documented as of this encounter Social History Tobacco Use Types Packs/Day Years Used Date Former Smoker 0.25 30 Started: 08/14 Smokeless Tobacco: Never Used Comments: 1/2 pack daily- taking chantix at present time Alcohol Use Drinks/Week oz/Week Comments Yes 0 Standard drinks or equivalent 0.0 once a week a few drinks Sex Assigned at Date Recorded Not on file COVID-19 Exposure Response Date Recorded In the last month, have you been in contact with No / Unsure 10/22/2020 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 documented as of this encounter Plan of Treatment Name Type Priority Associated Diagnoses Order S chedule AMB REFERRAL TO Outpatient Referral Viral upper Order ed: INTERNAL MEDICINE respiratory tract 10/27 infection documented as of this encounter Implants Implanted Type Area Wood Flooring Specialist Device Shelf Model / Identifier Expiration Serial / Lot Date Staple Reload [place] Vasc Flex Power Lf Right: ETHICON 06/04/2018 [id number] / Implanted: Qty: 2 on 07/22/2015 by Luis Mills MD at [facility] Lung ENDO-SURGERY / [id number] Staple Reload Green 60 Lf Right: ETHICON 06/08 [id number] / Implanted: Qty: 1 on 07/22/2015 by Luis Mills MD at [facility] Lung ENDO-SURGERY / [id number] Staple Reload Green 60 Lf Right: ETHICON 05/08 [id number] / Implanted: Qty: 1 on 07/22/2015 [facility] / [id number] Staple Reload Green 60 Lf Right: ETHICON 03/08 [id number] / Implanted: Qty: 1 on 07/22/2015 by Luis Mills MD at [facility] Lung ENDO-SURGERY / [id number] Staple Reload Green 60 Lf Right: ETHICON 03/08 [id number] / Implanted: Qty: 2 on 07/22/2015 by Luis Mills MD at [facility] Lung ENDO-SURGERY / [id number] Graft Ptfe [place] Strips 1/4x6in Lf Right: DEROYAL 03/05/2020 [id number] / Implanted: Qty: 1 on 07/22/2015 [facility] / [id number] Knee Insert Cs Triathlon 9mm Sz3 Lf Left: OSTEOLOGIC-HOW MED 02/27/2023 [id number] / Implanted: Qty: 1 on 07/25/2018 by Silver Garrido DO at [facility] Knee [employer] [place] / [id number] Knee Triathlon Cr F/C Beaded F-301 Lf Left: OSTEOLOGIC-H OWMED 03/20/2023 [id number] / Implanted: Qty: 1 on 07/25/2018 by Silver Garrido DO at [facility] Knee [employer] [place] / [id number] Knee Triathlon Tri Baseplate Sz3 Lf Left: OSTEOLOGIC-HOW MED 04/12/2023 [id number] / Implanted: Qty: 1 on 07/25/2018 by Silver Garrido DO at [facility] Knee [employer] [place] / [id number] documented as of this encounter Visit Diagnoses Diagnosis Viral upper respiratory tract infection - Primary Acute upper respiratory infections of un specified site documented in this encounter Additional Health Concerns Infection Onset Date Last Indicated Resolved Time COVID-19 Confirmed 10/23/2020 10/23/2020 documented as of this encounter Insurance Payer Benefit Plan Subscriber ID Effective Phone Address Typ e / Group Dates [facility] [id number] 2020-Prese [address] Medicaid HEALTH PLAN HEALTH PLAN nt [place], [place] [id number] documented as of this encounter Advance Directives Type Date 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
[2020-10-27] MEDS: Azithromycin 500 MG in Sodium Chloride 0.9% 250 ML IV SCH (15:04)
[2020-10-27] MEDS: cefTRIAXone 1 GM in Sodium Chloride 0.9% 50 ML IV SCH (16:17)
[2020-10-27] MEDS: Non-Formulary Medication 1 Each (Albuterol/Ipratropium [Combivent Respimat] 1 PUFF) INH SCH ×2 (18:22→18:23)
[2020-10-27] MEDS: Amitriptyline 25 MG Tab PO SCH (20:53)
[2020-10-27] MEDS ORDERED: Mometasone Furoate Powder 220 MCG/Puff 14 Dose Inhaler INH SCH (21:00)
[2020-10-27] MEDS: Acetaminophen/oxyCODONE 325-5 MG Tab PO PRN (21:11)
[2020-10-28] MEDS: Dexamethasone 4 MG/ML SDV IVPUSH SCH (04:00)
[2020-10-28] MEDS: Omeprazole 20 MG Cap.CR PO SCH (05:48)
[2020-10-28] MEDS: Heparin Sodium 5,000 Units/ML Vial SUBCUT SCH ×2 (05:50→14:19)
[2020-10-28] MEDS: Acetaminophen/oxyCODONE 325-5 MG Tab PO PRN ×2 (06:01→13:23)
[2020-10-28] MEDS: Insulin Lispro 100 Units/ML 3 ML Vial SUBCUT SCH ×4 (08:30→12:13)
[2020-10-28] MEDS: Gabapentin 100 MG Cap PO SCH ×2 (08:57→14:20)
[2020-10-28] MEDS: Metoprolol Succinate 25 MG Tab.ER PO SCH (08:57)
[2020-10-28] MEDS: atorvaSTATin 10 MG Tab PO SCH (08:57)
[2020-10-28] MEDS: Glimepiride 2 MG Tab PO SCH (08:58)
[2020-10-28] MEDS: Aspirin 81 MG Tab.EC PO SCH (08:58)
[2020-10-28] MEDS: DULoxetine 30 MG Cap PO SCH (08:58)
[2020-10-28] MEDS ORDERED: Insulin Glarg,Human.Rec.Analog 100 Unit/ML SUBCUT SCH (09:00)
[2020-10-28] MEDS: Nystatin Susp 100,000 Unit/ML 5 ML UD Cup PO SCH ×2 (09:01→13:18)
[2020-10-28] MEDS: Albuterol 6.7 GM Inhaler INH SCH ×2 (09:05→12:15)
[2020-10-28] MEDS ORDERED: 50% Dextrose in Water 50 ML Syringe IV PRN (09:57)
[2020-10-28] MEDS ORDERED: Glucagon,Human Recombinant 1 MG Vial IM PRN (09:57)
[2020-10-28] MEDS ORDERED: Insulin Lispro 100 Units/ML 3 ML Vial SUBCUT ONE (10:00)
--- NOTE | 2020-10-28 10:41 | PCM.DCSUM1 ---
Discharge Summary - Hospital Course Free Text/Narrative:: This a 55-year-old female with medical history of COPD, dyslipidemia, diabetes mellitus, hypertension and chronic kidney disease. The patient presented to the emergency room with complaint of generalized weakness and malaise which has been going on for the past 1 week. Symptoms has worsened and she has been feeling dizzy. She describes the dizziness as lightheadedness. This has resulted in multiple falls in the past couple of days prompting her to go to the emergency room. Patient had seen her primary care provider 4 days ago and was started on prednisone because of back pain. At presentation today, blood sugar was greater than 600. Patient indicates that she has not been eating well as her appetite and taste has been poor. Pt had her COVID-19 positive test result on 10/26/20 and she is not a candidate for Remdesivir because of high CKD stage and has received Convalescent plasma on 10/27/20 and getting Dexamethasone and Ceftriaxone as well as azithromycin. She tested positive for UTI and will go home with 7 days course of antibiotics. she will also go home on Dexamethasone need a total 10 days course. She is advised to follow with PMD in a week. In hospital she was seen and evaluated by PT/OT and recommended a walker and she will go home with walker - Discharge Data Discharge Date: 10/28/20 Discharge Disposition: Home, Self-Care 01 Condition: Fair - Referral to Home Health Primary Care Physician: Sam Ortega MD - Patient Summary/Data Consults: Consultations 10/27/20 09:54 OT Evaluation and Treatment [CONS] Routine PT Evaluation and Treatment [CONS] Routine - Patient Instructions Diet: Diabetic Diet Activity: As Tolerated Driving: Do Not Drive Showering/Bathing: May Shower Notify Provider of: Fever, Nausea and/or Vomiting Other/Special Instructions: This a 55-year-old female with medical history of COPD, dyslipidemia, diabetes mellitus, hypertension and chronic kidney disease. The patient presented to the emergency room with complaint of generalized weakness and malaise which has been going on for the past 1 week. Symptoms has worsened and she has been feeling dizzy. She describes the dizziness as lightheadedness. This has resulted in multiple falls in the past couple of days prompting her to go to the emergency room. Patient had seen her primary care provider 4 days ago and was started on prednisone because of back pain. At presentation today, blood sugar was greater than 600. Patient indicates that she has not been eating well as her appetite and taste has been poor. Pt had her COVID-19 positive test result on 10/26/20 and she is not a candidate for Remdesivir because of high CKD stage and has received Convalescent plasma on 10/27/20 and getting Dexamethasone and Ceftriaxone as well as azithromycin. She tested positive for UTI and will go home with 7 days course of antibiotics. she will also go home on Dexamethasone need a total 10 days course. She is advised to follow with PMD in a week. In hospital she was seen and evaluated by PT/OT and recommended a walker and she will go home with walker - Discharge Plan Prescriptions/Med Rec: Azithromycin 250 mg PO DAILY #5 tablet Ciprofloxacin HCl [Cipro] 500 mg PO DAILY #7 tablet dexAMETHasone [Decadron] 6 mg PO DAILY #7 tablet Home Medications: Home Meds Aspirin [Halfprin] 81 mg PO DAILY 02/19/15 [History] Desoximetasone [Topicort 0.25% Crm] 1 gm TOP BID PRN 02/19/15 [History] Albuterol [Ventolin HFA] 2 puff INH Q6H 08/10/19 [History] Albuterol/Ipratropium [Combivent Respimat] 1 puff INH QID 08/10/19 [History] Amitriptyline [Elavil] 50 mg PO BEDTIME 08/10/19 [History] DULoxetine [Cymbalta] 60 mg PO DAILY 08/10/19 [History] Diclofenac Sodium [Voltaren] 1 appful TOP BID PRN 08/10/19 [History] Gabapentin [Neurontin] 600 mg PO TID 08/10/19 [History] Glimepiride [Amaryl] 2 mg PO BID 08/10/19 [History] Meclizine HCl 25 mg PO DAILY PRN 08/10/19 [History] Omeprazole 20 mg PO DAILY 08/10/19 [History] Zolpidem [Ambien] 10 mg PO BEDTIME PRN 08/10/19 [History] atorvaSTATin [Lipitor] 20 mg PO DAILY 08/10/19 [History] hydrOXYzine HCL [Hydroxyzine HCl] 25 mg PO TID PRN 08/10/19 [History] tiZANidine [Zanaflex] 4 mg PO TID 08/10/19 [History] traMADol HCl [Tramadol HCl] 50 mg PO BID PRN 08/10/19 [History] Calcitriol 1 cap PO Q48H 10/27/20 [History] Insulin Detemir [Levemir Flextouch] 48 units SUBCUT DAILY 10/27/20 [History] Liraglutide [Victoza] 1.8 mg SUBCUT DAILY 10/27/20 [History] Metoprolol Succinate 50 mg PO DAILY 10/27/20 [History] Varenicline Tartrate [Chantix] 1 tab PO BID 10/27/20 [History] amLODIPine [Norvasc] 10 mg PO DAILY 10/27/20 [History] Azithromycin 250 mg PO DAILY #5 tablet 10/28/20 [Rx] Ciprofloxacin HCl [Cipro] 500 mg PO DAILY #7 tablet 10/28/20 [Rx] dexAMETHasone [Decadron] 6 mg PO DAILY #7 tablet 10/28/20 [Rx] Patient Handouts: COVID-19 Frequently Asked Questions, COVID-19: How to Protect Yourself and Others - CDC, Infection Prevention in the Home, Ciprofloxacin tablets, Dexamethasone tablets, Prevent the Spread of COVID-19 if You Are Sick - CDC Referrals: Sam Ortega MD [Primary Care Provider] - - Discharge Summary/Plan Comment DC Time >30 min.: Yes Discharge Summary/Plan Comment: This is a 55 y/o F admitted with recurrent falls at home and weakness, pt was also positive for COVID-19 ( Tested positive on 10/26/20). she will be going home today Assessment/plan: 1. Acute hypoxemic respiratory failure This is also a result of COVID-[address] scan showed bilateral pulmonary infiltrate -Pt will go home on Azithromycin and Ciprofloxacin 2 Diabetes mellitus with hyperglycemia Blood sugar is markedly elevated to greater than 600 Steroid started recently is likely contributing and will go home on insulin , followed by PMD in aweek 3 Hypertension: continue home medication and follow with PMD 4. Hyponatremia: this is secondary to hyperglycemia 5. Recurrent falls: Patient was complained of dizziness Possibly due to dehydration -She was seen and evaluated by PT/OT and will go home with walker as recommended by PT/OT 6. COVID 19 infection with secondary pneumonia -Pt is not a candidate for remdesivir because of high stage of CKD -Has received 1 unit Convalescent plasma on 10/27/20 -Will complete course of Dexamethasone and continue Azithromycin and Ciprofloxacin 7. UTI: Pt had u?C done and it was E. Coli >100,000 CFU/mL and will continue Ciprofloxacin and follow with PMD in a week - General Info Date of Service: 10/28/20 Admission Dx/Problem (Free Text: Admission Diagnosis/Problem Admission Diagnosis/Problem Pneumonia secondary to COVID-19 Subjective Update: pt was seen in COVID Isolation room, she is doing well, Not on oxygen, slept well and complain of some back pain from fall. No nausea or Vomiting Functional Status: Reports: Pain Controlled, Tolerating Diet, Ambulating, Urinating - Review of Systems General: Reports: Weakness, Appetite (Improving). Denies: Fever, Chills HEENT: Denies: Dysphasia, Headaches, Sinus Congestion, Sore Throat, Visual Changes Pulmonary: Denies: Shortness of Breath, Cough, Sputum, Wheezing Cardiovascular: Denies: Chest Pain, Dyspnea on Exertion, Edema, Lightheadedness Gastrointestinal: Reports: Decreased Appetite. Denies: Abdominal Pain, Difficulty Swallowing, Nausea, Vomiting Genitourinary: Denies: Dysuria, Frequency, Burning, Urgency, Flank Pain Musculoskeletal: Reports: Back Pain. Denies: Neck Pain, Shoulder Pain, Joint Pain Neurological: Reports: Weakness. Denies: Confusion, Headache, Numbness Psychiatric: Denies: Confusion, Anxiety, Agitation - Patient Data Vitals - Most Recent: Last Vital Signs Temp 35.6 C L 10/28/20 08:00 Pulse 68 10/28/20 08:57 Resp 18 10/28/20 08:00 BP 125/73 10/28/20 08:57 Pulse Ox 97 10/28/20 10:00 Weight - Most Recent: 126.099 kg I&O - Last 24 hours: Intake & Output 10/27/20 10/28/20 10/28/20 22:59 06:59 14:59 Intake Total 200 1040 440 Balance 200 1040 440 Lab Results - Last 24 hrs: Laboratory Results - last 24 hr 10/27/20 10/27/20 10/27/20 Range/Units 05:46 12:07 17:08 POC Glucose 427 H* 388 H (70-105) mg/dl Procalcitonin 0.52 H ng/mL 10/27/20 10/28/20 Range/Units 20:51 07:28 POC Glucose 324 H 146 H (70-105) mg/dl Procalcitonin ng/mL CHITRA Results - Last 24 hrs: Microbiology 10/26/20 14:15 Urine Culture - Final Urine, Voided Escherichia Coli Med Orders - Current: Current Medications Acetaminophen (Tylenol) 650 mg PO Q4H PRN PRN Reason: Pain (Mild 1-3)/fever Albuterol (Proventil Hfa) 0 gm INH Q6H PRN PRN Reason: shortness of breath Albuterol (Proventil Hfa) 0 gm INH QID [facility] Last Admin: 10/28/20 09:05 Dose: 2 puff Documented by: Amitriptyline HCl (Elavil) 50 mg PO BEDTIME [facility] Last Admin: 10/27/20 20:53 Dose: 50 mg Documented by: Aspirin (Halfprin) 81 mg PO DAILY [facility] Last Admin: 10/28/20 08:58 Dose: 81 mg Documented by: Atorvastatin Calcium (Lipitor) 10 mg PO DAILY [facility] Last Admin: 10/28/20 08:57 Dose: 10 mg Documented by: Dexamethasone (Decadron) 6 mg IVPUSH Q24H [facility] Last Admin: 10/28/20 04:00 Dose: 6 mg Documented by: Dextrose/Water (Dextrose 50% In Water) 50 ml IV ASDIRECTED PRN PRN Reason: Hypoglycemia Duloxetine HCl (Cymbalta) 60 mg PO DAILY [facility] Last Admin: 10/28/20 08:58 Dose: 60 mg Documented by: Gabapentin (Neurontin) 200 mg PO TID [facility] Last Admin: 10/28/20 08:57 Dose: 200 mg Documented by: Glimepiride (Amaryl) 1 mg PO BID [facility] Last Admin: 10/28/20 08:58 Dose: 1 mg Documented by: Glucagon (Glucagen) 1 mg IM ASDIRECTED PRN PRN Reason: Hypoglycemia Heparin Sodium (Porcine) (Heparin Sodium) 5,000 units SUBCUT Q8HR [facility] Last Admin: 10/28/20 05:50 Dose: 5,000 units Documented by: Hydroxyzine HCl (Atarax) 25 mg PO TID PRN PRN Reason: Anxiety Sodium Chloride (Normal Saline) 1,000 mls @ 75 mls/hr IV ASDIRECTED [facility] Last Admin: 10/27/20 06:24 Dose: 75 mls/hr Documented by: Ceftriaxone Sodium 1 gm/ (Sodium Chloride) 50 mls @ 100 mls/hr IV Q24H [facility] Last Admin: 10/27/20 16:17 Dose: 100 mls/hr Documented by: Azithromycin 500 mg/ Sodium (Chloride) 250 mls @ 250 mls/hr IV Q24H [facility] Last Admin: 10/27/20 15:04 Dose: 250 mls/hr Documented by: Insulin Glargine (Lantus) 60 unit SUBCUT DAILY [facility] Last Admin: 10/28/20 08:59 Dose: 60 units Documented by: Insulin Human Lispro (Humalog) 0 unit SUBCUT WITHMEALSANDBED [facility]; Protocol Last Admin: 10/28/20 08:30 Dose: Not Given Documented by: Insulin Human Lispro (Humalog) 30 unit SUBCUT TIDMEALS [facility] Last Admin: 10/28/20 10:13 Dose: Not Given Documented by: Metoprolol Succinate (Toprol Xl) 25 mg PO DAILY [facility] Last Admin: 10/28/20 08:57 Dose: 25 mg Documented by: Mometasone Furoate (Asmanex 220 Mcg) 2 puff INH BEDTIME [facility] Last Admin: 10/27/20 21:03 Dose: 2 puff Documented by: Non-Formulary Medication (Diclofenac Sodium [Voltaren]) 1 appful TOP BID PRN PRN Reason: Pain Non-Formulary Medication (Desoximetasone [Topicort 0.25% Crm]) 1 gm TOP BID PRN PRN Reason: Rash Non-Formulary Medication (Meclizine Hcl [Meclizine Hcl]) 25 mg PO ASDIRECTED PRN PRN Reason: travel Non-Formulary Medication (Tizanidine [Zanaflex]) 4 mg PO DAILY [facility] Nystatin (Mycostatin) 5 ml PO QID [facility] Last Admin: 10/28/20 09:01 Dose: 5 ml Documented by: Omeprazole (Omeprazole) 20 mg PO ACBREAKFAST [facility] Last Admin: 10/28/20 05:48 Dose: 20 mg Documented by: Ondansetron HCl (Zofran) 4 mg IVPUSH Q6H PRN PRN Reason: Nausea/Vomiting Oxycodone/Acetaminophen (Percocet 325-5 Mg) 1 tab PO Q4H PRN PRN Reason: Pain/Fever Last Admin: 10/28/20 06:01 Dose: 1 tab Documented by: Zolpidem Tartrate (Ambien) 5 mg PO BEDTIME PRN PRN Reason: Sleep Discontinued Medications Glimepiride (Amaryl) 2 mg PO BID [facility] Last Admin: 10/26/20 16:32 Dose: Not Given Documented by: Sodium Chloride (Normal Saline) 1,000 mls @ 999 mls/hr IV .BOLUS ONE Stop: 10/26/20 01:52 Last Admin: 10/26/20 01:06 Dose: 999 mls/hr Documented by: Insulin Glargine (Lantus) 40 unit SUBCUT DAILY [facility] Last Admin: 10/26/20 04:17 Dose: 40 units Documented by: Insulin Glargine (Lantus) 48 unit SUBCUT DAILY [facility] Last Admin: 10/27/20 08:27 Dose: 48 units Documented by: Insulin Glargine (Lantus) 10 unit SUBCUT ONETIME ONE Stop: 10/26/20 10:03 Last Admin: 10/26/20 10:19 Dose: 10 units Documented by: Insulin Glargine (Lantus) 20 unit SUBCUT ONETIME ONE Stop: 10/26/20 12:33 Last Admin: 10/26/20 13:02 Dose: 20 units Documented by: Insulin Glargine (Lantus) 10 unit SUBCUT ONETIME ONE Stop: 10/26/20 21:11 Last Admin: 10/26/20 21:36 Dose: 10 units Documented by: Insulin Glargine (Lantus) 12 unit SUBCUT ONETIME ONE Stop: 10/27/20 13:01 Last Admin: 10/27/20 13:22 Dose: 12 units Documented by: Insulin Human Lispro (Humalog) 10 unit SUBCUT TIDMEALS [facility] Last Admin: 10/26/20 09:48 Dose: 10 units Documented by: Insulin Human Lispro (Humalog) 20 unit SUBCUT ONETIME ONE Stop: 10/26/20 03:31 Last Admin: 10/26/20 04:09 Dose: 20 units Documented by: Insulin Human Lispro (Humalog) 20 unit SUBCUT TIDMEALS [facility] Last Admin: 10/27/20 08:25 Dose: 20 units Documented by: Insulin Human Lispro (Humalog) 10 unit SUBCUT ONETIME ONE Stop: 10/26/20 12:34 Last Admin: 10/26/20 13:01 Dose: 10 units Documented by: Insulin Human Lispro (Humalog) 10 unit SUBCUT ONETIME ONE Stop: 10/26/20 21:09 Last Admin: 10/26/20 21:33 Dose: 10 units Documented by: Insulin Human Lispro (Humalog) 25 unit SUBCUT ONETIME ONE Stop: 10/28/20 10:01 Last Admin: 10/28/20 10:11 Dose: 25 units Documented by: Insulin Human Regular (Humulin R) 5 unit IV ONETIME ONE Stop: 10/26/20 00:53 Last Admin: 10/26/20 01:06 Dose: 5 unit Documented by: Non-Formulary Medication (Albuterol/Ipratropium [Combivent Respimat]) 1 puff INH QID [facility] Last Admin: 10/27/20 18:23 Dose: Not Given Documented by: Non-Formulary Medication (Gabapentin) 600 mg PO TID [facility] Tramadol HCl (Ultram) 50 mg PO BID PRN PRN Reason: Pain (moderate 4-6) Last Admin: 10/27/20 15:10 Dose: 50 mg Documented by: - Exam Quality Assessment: Reports: DVT Prophylaxis. Denies: Supplemental Oxygen, Urine Catheter, Skin Breakdown General: Reports: Alert, Oriented, Cooperative, No Acute Distress HEENT: Reports: Pupils Equal, EOMI, Mucous Membr. Moist/Excello Neck: Reports: No JVD, No Thyromegaly. Denies: Lymphadenopathy Lungs: Reports: Clear to Auscultation, Normal Respiratory Effort. Denies: Crackles, Rales, Wheezing Cardiovascular: Reports: Regular Rate, Regular Rhythm, No Murmurs GI/Abdominal Exam: Normal Bowel Sounds, Soft, Non-Tender. No: Guarding, Rebound, Tender (Female) Exam: Deferred Rectal (Female) Exam: Deferred Back Exam: Reports: Normal Inspection, Full Range of Motion Extremities: Normal Inspection, No Pedal Edema Skin: Reports: Warm, Dry, Intact Neurological: Reports: No New Focal Deficit Psy/Mental Status: Reports: Alert, Normal Affect, Normal Mood
[2020-10-28 12:26] VITALS: BP 120/68; PULSE 65
== END 2020-10-28 14:10 | disposition home or self-care (01) | DRG 177 ==
LOC: DL.ED 00:29 → DL.MS 02:42 → UNDOADMIN 02:45 → DL.MS 02:45
PROVIDERS: ADMIT Hospitalist; ATTEND Internal Medicine Nephrology
PROC: XW033F5 Introduction of Other New Technology Therapeutic Substance into Peripheral Vein, Percutaneous Approach, New Technology Group 5 (ICD-10-PCS; principal; 2020-10-26)
PROC: XW13325 Transfusion of Convalescent Plasma (Nonautologous) into Peripheral Vein, Percutaneous Approach, New Technology Group 5 (ICD-10-PCS; 2020-10-26)
DX: U07.1 COVID-19 (principal); J96.01 Acute respiratory failure with hypoxia; J12.89 Other viral pneumonia; J44.0 Chronic obstructive pulmonary disease with (acute) lower respiratory infection; N39.0 Urinary tract infection, site not specified; E87.1 Hypo-osmolality and hyponatremia; N17.9 Acute kidney failure, unspecified; E78.5 Hyperlipidemia, unspecified; Z79.4 Long term (current) use of insulin; E11.22 Type 2 diabetes mellitus with diabetic chronic kidney disease; I12.9 Hypertensive chronic kidney disease with stage 1 through stage 4 chronic kidney disease, or unspecified chronic kidney disease; W18.30XA Fall on same level, unspecified, initial encounter; Y92.009 Unspecified place in unspecified non-institutional (private) residence as the place of occurrence of the external cause; E11.65 Type 2 diabetes mellitus with hyperglycemia; E86.0 Dehydration; N18.30 Chronic kidney disease, stage 3 unspecified; F41.9 Anxiety disorder, unspecified; F32.9 Major depressive disorder, single episode, unspecified; Z90.710 Acquired absence of both cervix and uterus; Z98.890 Other specified postprocedural states
CPT/HCPCS: 36415; 36430; 70450; 71250; 73620-LT; 80048; 80053; 80076; 80305-QW; 81001; 82009; 82962; 83036; 83605; 84145; 84484; 85025; 85027; 85379; 87086; 87088; 87186; 97162-GP; 97165-GO; 99283; 99285-25; A9270-GY; J0456; J0696; J1100; J1644; J1815-GY; J7030; J7050; P9017; U0002

== ENCOUNTER 2020-11-14 20:11 | Emergency (ER) | payer MEDICAID ==
[2020-11-14 20:31] VITALS: BP 112/81; PULSE 93
--- NOTE | 2020-11-14 20:33 | EDM.PDOC ---
ED HPI GENERAL MEDICAL PROBLEM - General Chief Complaint: Back Pain or Injury Stated Complaint: FELL LEFT RIB AREA AND BACK HURTS Time Seen by Provider: 11/14/20 20:20 Source of Information: Reports: Patient History Limitations: Reports: No Limitations - History of Present Illness INITIAL COMMENTS - FREE TEXT/NARRATIVE: This 55 yo female patient reports to the ED with left sided rib and upper back pain. The patient reports she fell on 11/09/20 and has been having increased pain since that time. The patient reports she was seen in the [facility] on , but has continued to have pain with breathing. The patient reports she has a history of diabetes, fibromyalgia and hypertension. The patient reports she was taken off one of her blood pressure medications on due to having low blood pressure at that time. The patient reports she has been hospitalized for COVID in the past month and has not been feeling well since that time. 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 Denies: NSAIDS (due to "bad kidneys") Left Mid-Anterior Chest Pain Score (Numeric/FACES): 10 - Related Data Allergies Allergy/AdvReac Type Severity Reaction Status Date / Time No Known Allergies Allergy Verified 11/14/20 20:23 Home Meds: Home Meds Aspirin [Halfprin] 81 mg PO DAILY 02/19/15 [History] Desoximetasone [Topicort 0.25% Crm] 1 gm TOP BID PRN 02/19/15 [History] Albuterol [Ventolin HFA] 2 puff INH Q6H 08/10/19 [History] Albuterol/Ipratropium [Combivent Respimat] 1 puff INH QID 08/10/19 [History] Amitriptyline [Elavil] 50 mg PO BEDTIME 08/10/19 [History] DULoxetine [Cymbalta] 60 mg PO DAILY 08/10/19 [History] Diclofenac Sodium [Voltaren] 1 appful TOP BID PRN 08/10/19 [History] Gabapentin [Neurontin] 600 mg PO TID 08/10/19 [History] Glimepiride [Amaryl] 2 mg PO BID 08/10/19 [History] Meclizine HCl 25 mg PO DAILY PRN 08/10/19 [History] Omeprazole 20 mg PO DAILY 08/10/19 [History] Zolpidem [Ambien] 10 mg PO BEDTIME PRN 08/10/19 [History] atorvaSTATin [Lipitor] 20 mg PO DAILY 08/10/19 [History] hydrOXYzine HCL [Hydroxyzine HCl] 25 mg PO TID PRN 08/10/19 [History] tiZANidine [Zanaflex] 4 mg PO TID 08/10/19 [History] traMADol HCl [Tramadol HCl] 50 mg PO BID PRN 08/10/19 [History] Calcitriol 1 cap PO Q48H 10/27/20 [History] Insulin Detemir [Levemir Flextouch] 48 units SUBCUT DAILY 10/27/20 [History] Liraglutide [Victoza] 1.8 mg SUBCUT DAILY 10/27/20 [History] Metoprolol Succinate 50 mg PO DAILY 10/27/20 [History] Varenicline Tartrate [Chantix] 1 tab PO BID 10/27/20 [History] amLODIPine [Norvasc] 10 mg PO DAILY 10/27/20 [History] Azithromycin 250 mg PO DAILY #5 tablet 10/28/20 [Rx] Ciprofloxacin HCl [Cipro] 500 mg PO DAILY #7 tablet 10/28/20 [Rx] dexAMETHasone [Decadron] 6 mg PO DAILY #7 tablet 10/28/20 [Rx] Past Medical History HEENT History: Reports: None Cardiovascular History: Reports: High Cholesterol, Hypertension Respiratory History: Reports: COPD Gastrointestinal History: Reports: GERD Genitourinary History: Reports: Renal Disease, Other (See Below) Other Genitourinary History: CKDIII 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: Reports: Endometriosis Musculoskeletal History: Reports: Arthritis Neurological History: Reports: None Psychiatric History: Reports: Anxiety, Depression Endocrine/Metabolic History: Reports: Diabetes, Type II, Obesity/BMI 30+ Hematologic History: Reports: None, Blood Transfusion(s) Immunologic History: Reports: None Oncologic (Cancer) History: Reports: Lung Dermatologic History: Reports: Eczema Other Dermatologic History: eczema - Infectious Disease History Infectious Disease History: Reports: Chicken Pox - Past Surgical History Head Surgeries/Procedures: Reports: None Cardiovascular Surgical History: Reports: None Other Respiratory Surgeries/Procedures: Hx lung cancer, one tumor removed on right side. Female Surgical History: Reports: Hysterectomy Other Female Surgeries/Procedures: "bleeding left ovarian cyst Musculoskeletal Surgical History: Reports: Knee Replacement Oncologic Surgical History: Reports: Lobectomy Other Oncologic Surgeries/Procedures: right lower lobe removed 2014 Social & Family History - Family History Family Medical History: No Pertinent Family History - Caffeine Use Caffeine Use: Reports: Soda - Living Situation & Occupation Living situation: Reports: with Family ED ROS GENERAL - Review of Systems Review Of Systems: Comprehensive ROS is negative, except as noted in HPI. ED EXAM, GENERAL - Physical Exam Exam: See Below Exam Limited By: No Limitations General Appearance: Alert, WD/WN, Mild Distress, Obese Eye Exam: Bilateral Eye: EOMI, Normal Inspection, PERRL Ears: Normal External Exam, Normal Canal, Hearing Grossly Normal, Normal TMs Nose: Normal Inspection, Normal Mucosa, No Blood Throat/Mouth: Normal Inspection, Normal Lips, Normal Teeth, Normal Gums, Normal Oropharynx, Normal Voice, No Airway Compromise Head: Atraumatic, Normocephalic Neck: Normal Inspection, Supple, Non-Tender, Full Range of Motion Respiratory/Chest: No Respiratory Distress, Lungs Clear, Normal Breath Sounds, No Accessory Muscle Use, Other (left sided chest wall tenderness) Cardiovascular: Normal Peripheral Pulses, Regular Rate, Rhythm, No Edema, No Gallop, No JVD, No Murmur, No Rub GI/Abdominal: Normal Bowel Sounds, Soft, Non-Tender, No Organomegaly, No Distention, No Abnormal Bruit, No Mass (Female) Exam: Deferred Rectal (Female) Exam: Deferred Back Exam: Paraspinal Tenderness (left mid back) Extremities: Normal Inspection, Normal Range of Motion, No Pedal Edema, Normal Capillary Refill, Arm Pain (contusion to left upper arm.) Neurological: Alert, Oriented Psychiatric: Normal Affect, Normal Mood Skin Exam: Warm, Dry, Intact, Normal Color, No Rash Lymphatic: No Adenopathy Course - Vital Signs Last Recorded V/S: Last Vital Signs Temp 36.1 C 11/14/20 20:25 Pulse 93 11/14/20 20:25 Resp 24 H 11/14/20 20:25 BP 112/81 11/14/20 20:25 Pulse Ox 100 11/14/20 20:25 - Orders/Labs/Meds Meds: Medications Discontinued Medications Generic Name Dose Route Start Last Admin Trade Name Yo PRN Reason Stop Dose Admin Hydrocodone Bitart/Acetaminophen 1 tab 11/14/20 20:57 [place] 325-10 Mg PO 11/14/20 20:58 ONETIME ONE Departure - Departure Time of Disposition: 20:58 Disposition: Home, Self-Care 01 Condition: Fair Clinical Impression: Left rib fracture Qualifiers: Encounter type: initial encounter Rib fracture type: multiple ribs Fracture type: closed Qualified Code(s): S22.42XA - Multiple fractures of ribs, left side, initial encounter for closed fracture - Discharge Information *PRESCRIPTION DRUG MONITORING PROGRAM REVIEWED*: Not Applicable *COPY OF PRESCRIPTION DRUG MONITORING REPORT IN PATIENT CLIFF: Not Applicable Instructions: Rib Fracture, [id number] Forms: ED Department Discharge Care Plan Goals: The patient was advised of the examination and x-ray results during the visit. The patient was given an oral dose of [place] (10/325) while in the ED. The patient was discharged with a script for [place] (5/325) #8 to take 1 by mouth every 6 hours as needed for pain. If the patient has any additional symptoms or concerns, the patient should either return to the emergency department or visit her primary care facility. Sepsis Event Note (ED) - Focused Exam Vital Signs: Vital Signs Temp Pulse Resp BP Pulse Ox 11/14/20 20:25 36.1 C 93 24 H 112/81 100
--- NOTE | 2020-11-14 20:52 | CR ---
PROCEDURE INFORMATION: Exam: XR Left Ribs with PA Chest, 3 Views Exam date and time: 11/14/2020 8:33 PM Age: 55 years old Clinical indication: Other: Pain; Additional info: Fell 6 days ago (left side rib pain) TECHNIQUE: Imaging protocol: XR Left ribs 3 views with PA chest. COMPARISON: CT Chest wo Cont, Chest wo Cont 10/26/2020 1:57 AM FINDINGS: Lungs: Mild bilateral hyperinflation. Pleural space: There is no evidence of pneumothorax. Heart/Mediastinum: Unremarkable. No cardiomegaly. Diaphragm: There is nonspecific elevation of the right hemidiaphragm. Bones/joints: Minimally displaced fractures of the left 3rd and 4th ribs. IMPRESSION: 1. Minimally displaced fractures of the left 3rd and 4th ribs. 2. There is no evidence of pneumothorax. 3. Mild bilateral hyperinflation.
[2020-11-14] MEDS ORDERED: Acetaminophen/HYDROcodone 325-10 MG Tab PO ONE (20:57)
== END 2020-11-14 21:06 | disposition home or self-care (01) ==
LOC: DL.ED 20:11
DX: S22.42XA Multiple fractures of ribs, left side, initial encounter for closed fracture (principal); I10 Essential (primary) hypertension; E78.00 Pure hypercholesterolemia, unspecified; K21.9 Gastro-esophageal reflux disease without esophagitis; I12.9 Hypertensive chronic kidney disease with stage 1 through stage 4 chronic kidney disease, or unspecified chronic kidney disease; N18.30 Chronic kidney disease, stage 3 unspecified; M19.90 Unspecified osteoarthritis, unspecified site; E11.22 Type 2 diabetes mellitus with diabetic chronic kidney disease; E66.9 Obesity, unspecified; Z68.41 Body mass index [BMI] 40.0-44.9, adult; Z79.82 Long term (current) use of aspirin; Z79.899 Other long term (current) drug therapy; Z79.4 Long term (current) use of insulin; W19.XXXA Unspecified fall, initial encounter
CPT/HCPCS: 71101; 99283; A9270

== ENCOUNTER 2022-07-07 20:17 | Emergency (ER) | payer MEDICAID, OTHER ==
[2022-07-07 21:02] VITALS: BP 126/73; PULSE 100
[2022-07-07 21:21] LABS: ANION GAP 13.7 mEq/L (7-13); CHLORIDE,CL 103 mmol/L (98-107); SODIUM,NA 139 mmol/L (136-145)
[2022-07-07 21:22] LABS: ACETAMINOPHEN 0 ug/mL (10-30 (Therapeutic)); ESTIMATED GFR 18 mL/min (>=60)
[2022-07-07 22:23] LABS: AMPHETAMINES,URINE NEGATIVE (NEGATIVE); BARBITURATES,URINE NEGATIVE (NEGATIVE); BENZODIAZEPINE,URINE POSITIVE (NEGATIVE); MDMA (ECSTASY), URINE NEGATIVE (NEGATIVE); METHADONE,URINE NEGATIVE (NEGATIVE); METHAMPHETAMINES,URINE NEGATIVE (NEGATIVE); OPIATES,URINE POSITIVE (NEGATIVE); OXYCODONE,URINE NEGATIVE (NEGATIVE); PHENCYCLIDINE,URINE POSITIVE (NEGATIVE); TCA,URINE POSITIVE (NEGATIVE)
[2022-07-07] MEDS: Cephalexin 500 MG Cap PO ONE (23:14)
== END 2022-07-07 23:19 | disposition home or self-care (01) ==
LOC: DL.ED 20:17
DX: R29.6 Repeated falls (principal); N39.0 Urinary tract infection, site not specified; R31.9 Hematuria, unspecified; Z72.3 Lack of physical exercise; E11.22 Type 2 diabetes mellitus with diabetic chronic kidney disease; I12.9 Hypertensive chronic kidney disease with stage 1 through stage 4 chronic kidney disease, or unspecified chronic kidney disease; N18.30 Chronic kidney disease, stage 3 unspecified; K21.9 Gastro-esophageal reflux disease without esophagitis; E78.00 Pure hypercholesterolemia, unspecified; F32.A Depression, unspecified; E66.9 Obesity, unspecified; Z68.42 Body mass index [BMI] 45.0-49.9, adult; Z79.899 Other long term (current) drug therapy; F41.9 Anxiety disorder, unspecified
CPT/HCPCS: 36415; 70450; 80053; 80143; 80179; 80305; 80307; 81001; 82140; 83605; 83735; 84484; 85025; 85379; 85610; 87086; 87635; 93005; 99285; A9270; U0002

== ENCOUNTER 2022-08-27 16:23 | Emergency (ER) | payer MEDICAID ==
[2022-08-27 16:56] VITALS: PULSE 88
[2022-08-27] MEDS ORDERED: Ondansetron 4 MG/2 ML SDV IVPUSH ONE (17:19)
[2022-08-27] MEDS ORDERED: HYDROmorphone 1 MG/ML Syringe IVPUSH ONE (17:19)
[2022-08-27 17:55] LABS: ANION GAP 10.6 mEq/L (7-13); CHLORIDE,CL 100 mmol/L (98-107); ESTIMATED GFR 25 mL/min (>=60); SODIUM,NA 137 mmol/L (136-145)
[2022-08-27 19:00] VITALS: BP 105/76
== END 2022-08-27 19:01 | disposition home or self-care (01) ==
LOC: DL.ED 16:23
DX: S52.502A Unspecified fracture of the lower end of left radius, initial encounter for closed fracture (principal); J44.9 Chronic obstructive pulmonary disease, unspecified; E78.00 Pure hypercholesterolemia, unspecified; I10 Essential (primary) hypertension; E11.9 Type 2 diabetes mellitus without complications; E66.9 Obesity, unspecified; Z68.42 Body mass index [BMI] 45.0-49.9, adult; Z79.82 Long term (current) use of aspirin; Z79.899 Other long term (current) drug therapy; Z86.16 Personal history of COVID-19; W01.0XXA Fall on same level from slipping, tripping and stumbling without subsequent striking against object, initial encounter
CPT/HCPCS: 36415; 70450; 73090-LT; 80053; 80307; 83735; 85025; 96374; 96375; 99284-25; A9270-GY; J1170; J2405

== ENCOUNTER 2022-08-30 15:55 | Inpatient (IN) | payer MEDICAID ==
[2022-08-30 16:53] LABS: ANION GAP 11.6 mEq/L (7-13); CHLORIDE,CL 102 mmol/L (98-107); SODIUM,NA 140 mmol/L (136-145)
[2022-08-30 17:01] LABS: ESTIMATED GFR 21 mL/min (>=60)
[2022-08-30 17:14] LABS: BENZODIAZEPINE,URINE POSITIVE (NEGATIVE); MDMA (ECSTASY), URINE NEGATIVE (NEGATIVE); METHADONE,URINE NEGATIVE (NEGATIVE); METHAMPHETAMINES,URINE NEGATIVE (NEGATIVE); OPIATES,URINE POSITIVE (NEGATIVE)
[2022-08-30 17:15] LABS: AMPHETAMINES,URINE NEGATIVE (NEGATIVE); BARBITURATES,URINE NEGATIVE (NEGATIVE); OXYCODONE,URINE NEGATIVE (NEGATIVE); PHENCYCLIDINE,URINE NEGATIVE (NEGATIVE); TCA,URINE POSITIVE (NEGATIVE)
[2022-08-30] MEDS ORDERED: Sodium Chloride 0.9% 1,000 ML IV ONE (17:21)
[2022-08-30] MEDS ORDERED: Acetaminophen 325 MG Tab PO PRN (20:51)
[2022-08-30] MEDS ORDERED: Magnesium Hydroxide 400 MG/5 ML Susp 30 ML Cup PO PRN (20:52)
[2022-08-30] MEDS ORDERED: Polyethylene Glycol 3350 Powder 17 GM Packet PO PRN (20:52)
[2022-08-30] MEDS ORDERED: Ondansetron 4 MG/2 ML SDV IVPUSH PRN (20:52)
[2022-08-30] MEDS ORDERED: Albuterol/Ipratropium 3.0-0.5 MG/3 ML Neb Soln NEB PRN (20:52)
[2022-08-30] MEDS ORDERED: Melatonin 3 MG Tab PO PRN (20:54)
[2022-08-30] MEDS ORDERED: Metoprolol Tartrate 5 MG/5 ML SDV IVPUSH PRN (20:55)
[2022-08-30] MEDS ORDERED: hydrALAZINE 20 MG/ML SDV IVPUSH PRN (20:55)
[2022-08-30] MEDS: Acetaminophen/HYDROcodone 325-5 MG Tab PO PRN (21:59)
[2022-08-30] MEDS: Heparin Sodium 5,000 Units/ML Vial SUBCUT SCH (22:00)
[2022-08-31] MEDS: Pantoprazole 40 MG Tab.CR PO SCH (06:17)
[2022-08-31] MEDS: Heparin Sodium 5,000 Units/ML Vial SUBCUT SCH ×3 (06:17→21:51)
[2022-08-31 06:59] LABS: ANION GAP 11.1 mEq/L (7-13)
[2022-08-31] MEDS ORDERED: Glucagon,Human Recombinant 1 MG Vial IM PRN (07:50)
[2022-08-31] MEDS ORDERED: 50% Dextrose in Water 50 ML Syringe IVPUSH PRN (07:50)
[2022-08-31] MEDS: Insulin Lispro 100 Units/ML 3 ML Vial SUBCUT SCH ×3 (08:55→17:34)
[2022-08-31] MEDS: Acetaminophen/HYDROcodone 325-5 MG Tab PO PRN (13:00)
[2022-08-31] MEDS: Insulin Glarg,Human.Rec.Analog 100 Unit/ML SUBCUT SCH (21:50)
[2022-08-31] MEDS ORDERED: diphenhydrAMINE 25 MG Tab PO PRN (22:16)
[2022-09-01] MEDS: Heparin Sodium 5,000 Units/ML Vial SUBCUT SCH (06:21)
[2022-09-01] MEDS: Pantoprazole 40 MG Tab.CR PO SCH (06:21)
[2022-09-01 07:32] LABS: ANION GAP 12.4 mEq/L (7-13)
[2022-09-01] MEDS: Insulin Lispro 100 Units/ML 3 ML Vial SUBCUT SCH ×2 (08:24→11:56)
[2022-09-01] MEDS: Insulin Glarg,Human.Rec.Analog 100 Unit/ML SUBCUT SCH (08:26)
[2022-09-01 13:31] VITALS: BP 175/80; PULSE 98
== END 2022-09-01 14:35 | disposition home or self-care (01) | DRG 92 ==
LOC: DL.ED 15:55 → DL.MS 17:51
PROVIDERS: ADMIT Internal Medicine; ATTEND Internal Medicine
DX: R29.6 Repeated falls (principal); N18.4 Chronic kidney disease, stage 4 (severe); R26.81 Unsteadiness on feet; T40.425A Adverse effect of tramadol, initial encounter; T42.8X5A Adverse effect of antiparkinsonism drugs and other central muscle-tone depressants, initial encounter; T43.595A Adverse effect of other antipsychotics and neuroleptics, initial encounter; T45.0X5A Adverse effect of antiallergic and antiemetic drugs, initial encounter; T42.6X5A Adverse effect of other antiepileptic and sedative-hypnotic drugs, initial encounter; T43.015A Adverse effect of tricyclic antidepressants, initial encounter; D63.8 Anemia in other chronic diseases classified elsewhere; E11.65 Type 2 diabetes mellitus with hyperglycemia; R74.8 Abnormal levels of other serum enzymes; M19.90 Unspecified osteoarthritis, unspecified site; G89.4 Chronic pain syndrome; G47.33 Obstructive sleep apnea (adult) (pediatric); G47.00 Insomnia, unspecified; E66.01 Morbid (severe) obesity due to excess calories; E78.5 Hyperlipidemia, unspecified; E11.22 Type 2 diabetes mellitus with diabetic chronic kidney disease; J44.9 Chronic obstructive pulmonary disease, unspecified; M48.061 Spinal stenosis, lumbar region without neurogenic claudication; E11.43 Type 2 diabetes mellitus with diabetic autonomic (poly)neuropathy; K31.84 Gastroparesis; K21.9 Gastro-esophageal reflux disease without esophagitis; F41.9 Anxiety disorder, unspecified; F32.A Depression, unspecified; Z85.118 Personal history of other malignant neoplasm of bronchus and lung; Z79.82 Long term (current) use of aspirin; Z79.51 Long term (current) use of inhaled steroids; Z79.899 Other long term (current) drug therapy; Z79.4 Long term (current) use of insulin; Z87.891 Personal history of nicotine dependence
CPT/HCPCS: 36415; 70450; 80053; 80305-QW; 80307; 81001; 82550; 82947; 83605; 83735; 84145; 84443; 84484; 85025; 87077; 87086; 93005; 97116-GP; 97161-GP; 97165-GO; 97530-GO; 99222; 99232; 99238; 99285; A9270-GY; C1758; J1644; J1815-GY; J7030

== ENCOUNTER 2023-01-02 22:40 | Emergency (ER) | payer MEDICAID ==
[2023-01-02] MEDS ORDERED: Sodium Chloride 0.9% 1,000 ML IV ONE (22:56)
[2023-01-02] MEDS ORDERED: Ondansetron 4 MG/2 ML SDV IVPUSH ONE (22:56)
[2023-01-02 23:30] VITALS: PULSE 80
[2023-01-02 23:43] LABS: ANION GAP 13.2 mEq/L (7-13)
[2023-01-03 00:08] VITALS: BP 80/60
[2023-01-03] MEDS ORDERED: Sodium Chloride 0.9% 1,000 ML IV ONE (00:14)
[2023-01-03 00:39] LABS: CORONAVIRUS COVID-19 NAA NEGATIVE (NEGATIVE)
== END 2023-01-03 01:28 | disposition home or self-care (01) ==
LOC: DL.ED 22:40
DX: R11.2 Nausea with vomiting, unspecified (principal); E78.00 Pure hypercholesterolemia, unspecified; J44.9 Chronic obstructive pulmonary disease, unspecified; K21.9 Gastro-esophageal reflux disease without esophagitis; E11.22 Type 2 diabetes mellitus with diabetic chronic kidney disease; I12.9 Hypertensive chronic kidney disease with stage 1 through stage 4 chronic kidney disease, or unspecified chronic kidney disease; N18.30 Chronic kidney disease, stage 3 unspecified; E66.9 Obesity, unspecified; Z68.42 Body mass index [BMI] 45.0-49.9, adult; Z79.899 Other long term (current) drug therapy; Z86.16 Personal history of COVID-19; Z79.4 Long term (current) use of insulin; Z20.822 Contact with and (suspected) exposure to COVID-19
CPT/HCPCS: 0240U; 36415; 80053; 82150; 83605; 83690; 85025; 87040; 96361; 96374; 99284; 99284-25; J2405; J7030

== ENCOUNTER 2023-05-20 12:09 | Emergency (ER) | payer MEDICAID ==
[2023-05-20 12:48] VITALS: BP 116/82; PULSE 103
== END 2023-05-20 13:35 | disposition home or self-care (01) ==
LOC: DL.ED 12:09
DX: S06.0X0A Concussion without loss of consciousness, initial encounter (principal); S00.83XA Contusion of other part of head, initial encounter; E78.00 Pure hypercholesterolemia, unspecified; I12.9 Hypertensive chronic kidney disease with stage 1 through stage 4 chronic kidney disease, or unspecified chronic kidney disease; N18.30 Chronic kidney disease, stage 3 unspecified; K21.9 Gastro-esophageal reflux disease without esophagitis; J44.9 Chronic obstructive pulmonary disease, unspecified; E66.9 Obesity, unspecified; Z68.42 Body mass index [BMI] 45.0-49.9, adult; Z79.82 Long term (current) use of aspirin; Z79.899 Other long term (current) drug therapy; Z79.4 Long term (current) use of insulin; W18.09XA Striking against other object with subsequent fall, initial encounter
CPT/HCPCS: 99283

== ENCOUNTER 2024-09-29 12:35 | Inpatient (IN) | payer MEDICARE, OTHER ==
[2024-09-29] MEDS ORDERED: Sodium Chloride 0.9% 10 ML Syringe FLUSH PRN (13:43)
[2024-09-29 14:08] LABS: BASOPHILS PERCENT AUTO 0.3 % (0.0-1.0); EOSINOPHILS PERCENT AUTO 2.1 % (1.0-3.0); HEMATOCRIT 36.3 % (37.0-47.0); HEMOGLOBIN 11.4 g/dL (12.0-16.0); LYMPHOCYTES PERCENT AUTO 13.1 % (20.5-50.1); MEAN CORPUSCULAR HEMOGLOBIN 31.2 pg (27.0-34.0); MEAN CORPUSCULAR HGB CONC 31.4 g/dL (33.0-35.0); MEAN CORPUSCULAR VOLUME 99.5 fL (80-100); MONOCYTES PERCENT AUTO 6.3 % (2-8); NEUTROPHILS PERCENT AUTO 78.2 % (42.2-75.2); PLATELET COUNT,PLT 250 10^3/uL (150-450); RED BLOOD CELL COUNT 3.65 10^6/uL (4.2-5.4); WHITE BLOOD CELL COUNT,WBC 8.9 10^3/uL (5.0-10.0)
[2024-09-29 14:29] LABS: A/G RATIO 0.89; ALBUMIN 3.2 g/dL (3.4-5.0); ANION GAP 12.8 mEq/L (7-13); BILIRUBIN TOTAL 0.5 mg/dL (0.2-1.0); BUN/CREATININE RATIO 15.1 (No establ ref range); CALCIUM 9.1 mg/dL (8.5-10.1); CREATININE 3.84 mg/dL (0.55-1.02); EST CRCL DRUG DOSING (CG) 15.53 mL/min; MAGNESIUM 2.3 mg/dL (1.8-2.4); POTASSIUM,K 4.8 mmol/L (3.5-5.1); PROTEIN TOTAL,TP 6.8 g/dL (6.4-8.2)
[2024-09-29] MEDS: Sodium Chloride 0.9% 1,000 ML IV ONE ×2 (14:29→18:44)
[2024-09-29] MEDS: Ketorolac 30 MG/ML SDV IVPUSH ONE (14:29)
[2024-09-29 15:07] LABS: APPEARANCE,URINE SLIGHTLY CLOUDY (CLEAR); BILIRUBIN,URINE NEGATIVE (NEGATIVE); COLOR,URINE YELLOW (YELLOW); GLUCOSE,URINE NEGATIVE (NEGATIVE); KETONES,URINE NEGATIVE (NEGATIVE); LEUKOCYTE ESTERASE,URINE NEGATIVE (NEGATIVE); NITRITE,URINE NEGATIVE (NEGATIVE); OCCULT BLOOD,URINE NEGATIVE (NEGATIVE); PH,URINE 5.5 (5.0-9.0); PROTEIN,URINE TRACE (NEGATIVE); UROBILINOGEN,URINE 0.2 mg/dL (0.2-1.0)
[2024-09-29] MEDS: Azithromycin 500 MG in Sodium Chloride 0.9% 250 ML IV ONE (15:31)
[2024-09-29] MEDS: cefTRIAXone 2 GM Vial IVPUSH ONE (15:32)
[2024-09-29 15:50] LABS: AMORPHOUS SEDIMENT,URINE FEW /HPF (NOT SEEN); BACTERIA,URINE FEW /HPF (0-FEW/HPF); EPITHELIAL CELLS,URINE FEW /HPF (NOT SEEN); MUCUS,URINE FEW /LPF (NOT SEEN); RBC,URINE 0-5 /HPF (0-5); WBC,URINE 0-5 /HPF (0-5/HPF)
[2024-09-29] MEDS ORDERED: Ondansetron 4 MG/2 ML SDV IVPUSH PRN (16:46)
[2024-09-29] MEDS ORDERED: Ketorolac 30 MG/ML SDV IVPUSH PRN (16:46)
[2024-09-29] MEDS ORDERED: Docusate Sodium 100 MG Cap PO PRN (16:46)
[2024-09-29] MEDS ORDERED: Polyethylene Glycol 3350 Powder 17 GM Packet PO PRN (16:46)
[2024-09-29] MEDS ORDERED: Acetaminophen 325 MG Tab PO PRN (16:46)
[2024-09-29] MEDS ORDERED: Melatonin 3 MG Tab PO PRN (16:46)
[2024-09-29 16:50] LABS: HEMOGLOBIN A1C 6.5 % (<5.7)
[2024-09-29] MEDS: Enoxaparin 30 MG/0.3 ML Syringe SUBCUT SCH (18:41)
[2024-09-29] MEDS: Albuterol/Ipratropium 3.0-0.5 MG/3 ML Neb Soln NEB SCH (18:42)
[2024-09-29] MEDS ORDERED: 50% Dextrose in Water 50 ML Syringe IVPUSH PRN (18:48)
[2024-09-29] MEDS ORDERED: Glucagon,Human Recombinant 1 MG Vial IM PRN (18:48)
[2024-09-29] MEDS ORDERED: Gabapentin 400 MG Cap PO SCH (21:00)
[2024-09-29] MEDS: Aspirin 81 MG Tab.Chew PO SCH (21:22)
[2024-09-29] MEDS: Insulin Lispro 100 Units/ML 3 ML Vial SUBCUT SCH (21:22)
[2024-09-29] MEDS: Gabapentin 400 MG Cap PO ONE (21:22)
[2024-09-29] MEDS: QUEtiapine 100 MG Tab PO SCH (21:23)
[2024-09-29] MEDS: Lidocaine 5% 700 MG Patch TOP SCH (21:23)
[2024-09-29] MEDS: methylPREDNISolone Sodium Succinate 125 MG/2 ML SDV IVPUSH SCH (21:23)
[2024-09-29] MEDS: atorvaSTATin 20 MG Tab PO SCH (21:23)
[2024-09-29] MEDS: Sodium Chloride 0.9% 1,000 ML IV SCH (21:24)
[2024-09-30 06:25] LABS: BASOPHILS PERCENT AUTO 0.2 % (0.0-1.0); HEMOGLOBIN 10.8 g/dL (12.0-16.0); MEAN CORPUSCULAR HEMOGLOBIN 31.7 pg (27.0-34.0); MEAN CORPUSCULAR HGB CONC 31.8 g/dL (33.0-35.0); MEAN CORPUSCULAR VOLUME 99.7 fL (80-100); MONOCYTES PERCENT AUTO 1.4 % (2-8); NEUTROPHILS PERCENT AUTO 89.4 % (42.2-75.2); PLATELET COUNT,PLT 237 10^3/uL (150-450); RED BLOOD CELL COUNT 3.41 10^6/uL (4.2-5.4); WHITE BLOOD CELL COUNT,WBC 5.8 10^3/uL (5.0-10.0)
[2024-09-30 07:07] LABS: ALBUMIN 2.8 g/dL (3.4-5.0); BILIRUBIN TOTAL 0.3 mg/dL (0.2-1.0); BUN/CREATININE RATIO 15.3 (No establ ref range); C-REACTIVE PROTEIN 10.33 ng/dL (<=0.50); CALCIUM 8.7 mg/dL (8.5-10.1); CREATININE 3.79 mg/dL (0.55-1.02); EST CRCL DRUG DOSING (CG) 15.73 mL/min; MAGNESIUM 2.3 mg/dL (1.8-2.4); PROTEIN TOTAL,TP 6.6 g/dL (6.4-8.2)
[2024-09-30 07:09] LABS: A/G RATIO 0.74
[2024-09-30] MEDS: Azithromycin 500 MG in Sodium Chloride 0.9% 250 ML IV SCH (08:36)
[2024-09-30] MEDS: cefTRIAXone 2 GM Vial IVPUSH SCH (08:37)
[2024-09-30] MEDS: Pantoprazole 40 MG Vial IVPUSH SCH (08:39)
[2024-09-30] MEDS: Metoprolol Succinate 25 MG Tab.ER PO SCH (08:40)
[2024-09-30] MEDS: Furosemide 20 MG Tab PO SCH (08:41)
[2024-09-30] MEDS ORDERED: Glucagon,Human Recombinant 1 MG Vial IM PRN (11:50)
[2024-09-30] MEDS ORDERED: 50% Dextrose in Water 50 ML Syringe IVPUSH PRN (11:50)
[2024-09-30] MEDS ORDERED: QUEtiapine 100 MG Tab PO PRN ×2 (11:55→13:01)
[2024-09-30] MEDS ORDERED: ALPRAZolam 0.5 MG Tab PO PRN (12:00)
[2024-09-30] MEDS ORDERED: hydrOXYzine HCl 25 MG Tab PO PRN (12:09)
[2024-09-30] MEDS ORDERED: Naloxone 2 MG/2 ML Syringe IV PRN (12:24)
[2024-09-30] MEDS: Insulin Lispro 100 Units/ML 3 ML Vial SUBCUT SCH ×2 (12:54→15:14)
[2024-09-30] MEDS ORDERED: Docusate Sodium 100 MG Cap PO SCH (14:00)
[2024-09-30 14:02] LABS: FOLIC ACID > 20.0 ng/mL (8.6-58.9)
[2024-09-30 16:30] VITALS: BP 180/85; PULSE 110
[2024-09-30] MEDS ORDERED: Gabapentin 400 MG Cap PO SCH ×2 (21:00)
[2024-10-01] MEDS ORDERED: Venlafaxine 150 MG Cap.ER PO SCH (09:00)
[2024-10-01] MEDS ORDERED: Gabapentin 100 MG Cap PO SCH (09:00)
[2024-10-01] MEDS ORDERED: Venlafaxine 37.5 MG Cap.ER PO SCH (09:00)
[2024-10-01] MEDS ORDERED: Multivitamin Tab PO SCH (09:00)
[2024-10-01] MEDS ORDERED: Insulin Glarg,Human.Rec.Analog 100 Unit/ML 10 ML Vial SUBCUT SCH (09:00)
== END 2024-09-30 17:25 | disposition left against medical advice (07) | DRG 194 ==
LOC: DL.ED 12:35 → DL.MS 15:17
PROVIDERS: ADMIT Student in an Organized Health Care Education/Training Program; ATTEND Student in an Organized Health Care Education/Training Program
DX: J18.9 Pneumonia, unspecified organism (principal); I10 Essential (primary) hypertension; J44.0 Chronic obstructive pulmonary disease with (acute) lower respiratory infection; J44.1 Chronic obstructive pulmonary disease with (acute) exacerbation; E11.9 Type 2 diabetes mellitus without complications; N17.9 Acute kidney failure, unspecified; Z68.42 Body mass index [BMI] 45.0-49.9, adult; E86.0 Dehydration; Z66 Do not resuscitate; E78.00 Pure hypercholesterolemia, unspecified; J44.9 Chronic obstructive pulmonary disease, unspecified; K21.9 Gastro-esophageal reflux disease without esophagitis; F41.9 Anxiety disorder, unspecified; F32.A Depression, unspecified; E66.9 Obesity, unspecified; M19.90 Unspecified osteoarthritis, unspecified site; Z96.659 Presence of unspecified artificial knee joint; I12.9 Hypertensive chronic kidney disease with stage 1 through stage 4 chronic kidney disease, or unspecified chronic kidney disease; N18.9 Chronic kidney disease, unspecified; G47.33 Obstructive sleep apnea (adult) (pediatric); D64.9 Anemia, unspecified; D63.1 Anemia in chronic kidney disease; E11.43 Type 2 diabetes mellitus with diabetic autonomic (poly)neuropathy; K31.84 Gastroparesis; N80.9 Endometriosis, unspecified; Z79.899 Other long term (current) drug therapy; Z79.4 Long term (current) use of insulin; Z79.82 Long term (current) use of aspirin; Z85.118 Personal history of other malignant neoplasm of bronchus and lung; Z86.16 Personal history of COVID-19; Z90.710 Acquired absence of both cervix and uterus
CPT/HCPCS: 36415; 71046; 80053; 81001; 83036; 83605; 83735; 84484; 85025; 86140; 87428; 93005; 93010; 96361; 96374; 99284; 99285; J1885; J7030; 82607; 82746; 82947; 94640; 97162-GP; 97165-GO; 99223; 99238; A9270-GY; J0456; J0696; J1650; J1815-GY; J2470; J2919; J7050; J7620-GY

== ENCOUNTER 2024-10-14 10:04 | Emergency (ER) | payer MEDICARE, OTHER ==
[2024-10-14] MEDS ORDERED: Sodium Chloride 0.9% 10 ML Syringe FLUSH PRN (10:13)
[2024-10-14] MEDS: Acetaminophen 325 MG Tab PO ONE (10:21)
[2024-10-14 10:33] LABS: BASOPHILS PERCENT AUTO 0.2 % (0.0-1.0); EOSINOPHILS PERCENT AUTO 1.5 % (1.0-3.0); HEMATOCRIT 34.6 % (37.0-47.0); HEMOGLOBIN 11.2 g/dL (12.0-16.0); LYMPHOCYTES PERCENT AUTO 5.6 % (20.5-50.1); MEAN CORPUSCULAR HEMOGLOBIN 31.8 pg (27.0-34.0); MEAN CORPUSCULAR HGB CONC 32.4 g/dL (33.0-35.0); MEAN CORPUSCULAR VOLUME 98.3 fL (80-100); MONOCYTES PERCENT AUTO 5.1 % (2-8); NEUTROPHILS PERCENT AUTO 87.6 % (42.2-75.2); PLATELET COUNT,PLT 303 10^3/uL (150-450); RED BLOOD CELL COUNT 3.52 10^6/uL (4.2-5.4); WHITE BLOOD CELL COUNT,WBC 24.7 10^3/uL (5.0-10.0)
[2024-10-14 10:52] LABS: ANION GAP 11.6 mEq/L (7-13); BILIRUBIN TOTAL 0.4 mg/dL (0.2-1.0); BUN/CREATININE RATIO 17.5 (No establ ref range); CALCIUM 8.5 mg/dL (8.5-10.1); CREATININE 3.61 mg/dL (0.55-1.02); EST CRCL DRUG DOSING (CG) 16.52 mL/min; POTASSIUM,K 4.6 mmol/L (3.5-5.1); PROTEIN TOTAL,TP 6.1 g/dL (6.4-8.2)
[2024-10-14 10:53] LABS: A/G RATIO 0.97
[2024-10-14] MEDS: Benzocaine/Cetylpyridinium/Menthol Lozenge MUCMEM PRN (11:18)
[2024-10-14 11:24] VITALS: BP 123/83; PULSE 82
== END 2024-10-14 11:45 | disposition home or self-care (01) ==
LOC: DL.ED 10:04
DX: J02.9 Acute pharyngitis, unspecified (principal); I10 Essential (primary) hypertension; J44.9 Chronic obstructive pulmonary disease, unspecified; K21.9 Gastro-esophageal reflux disease without esophagitis; M19.90 Unspecified osteoarthritis, unspecified site; E11.9 Type 2 diabetes mellitus without complications; E66.9 Obesity, unspecified; Z86.16 Personal history of COVID-19; Z90.710 Acquired absence of both cervix and uterus; Z79.4 Long term (current) use of insulin; Z79.51 Long term (current) use of inhaled steroids; Z79.82 Long term (current) use of aspirin; Z79.899 Other long term (current) drug therapy; Z68.42 Body mass index [BMI] 45.0-49.9, adult
CPT/HCPCS: 36415; 71045; 80053; 82550; 85025; 99283; A9270

== ENCOUNTER 2025-02-10 12:03 | Inpatient (IN) | payer MEDICARE ==
[2025-02-10 12:30] LABS: BASOPHILS PERCENT AUTO 0.1 % (0.0-1.0); EOSINOPHILS PERCENT AUTO 0.7 % (1.0-3.0); HEMATOCRIT 35.9 % (37.0-47.0); HEMOGLOBIN 10.9 g/dL (12.0-16.0); LYMPHOCYTES PERCENT AUTO 6.7 % (20.5-50.1); MEAN CORPUSCULAR HEMOGLOBIN 30.5 pg (27.0-34.0); MEAN CORPUSCULAR HGB CONC 30.4 g/dL (33.0-35.0); MEAN CORPUSCULAR VOLUME 100.6 fL (80-100); MONOCYTES PERCENT AUTO 5.8 % (2-8); NEUTROPHILS PERCENT AUTO 86.7 % (42.2-75.2); PLATELET COUNT,PLT 287 10^3/uL (150-450); RED BLOOD CELL COUNT 3.57 10^6/uL (4.2-5.4); WHITE BLOOD CELL COUNT,WBC 16.1 10^3/uL (5.0-10.0)
[2025-02-10 12:54] LABS: A/G RATIO 0.9; ALBUMIN 3.4 g/dL (3.4-5.0); ANION GAP 14.9 mEq/L (7-13); BILIRUBIN TOTAL 0.3 mg/dL (0.2-1.0); BUN/CREATININE RATIO 13.2 (No establ ref range); CALCIUM 9.5 mg/dL (8.5-10.1); CREATININE 3.72 mg/dL (0.55-1.02); EST CRCL DRUG DOSING (CG) 16.03 mL/min; MAGNESIUM 2.6 mg/dL (1.8-2.4); POTASSIUM,K 4.9 mmol/L (3.5-5.1)
[2025-02-10 12:56] LABS: INR 0.9 (0.9-1.2); PROTHROMBIN TIME 9.9 SEC (9.0-12.0); PTT,PARTIAL THROMBOPLSTIN TIME 20.4 SEC (22.0-34.0)
[2025-02-10] MEDS: Piperacillin/Tazobactam 4.5 GM in Sodium Chloride 0.9% 100 ML IV ONE (13:04)
[2025-02-10] MEDS: Sodium Chloride 0.9% 1,000 ML IV ONE (13:09)
[2025-02-10] MEDS: Albuterol/Ipratropium 3.0-0.5 MG/3 ML Neb Soln NEB ONE (13:23)
[2025-02-10] MEDS: VANCOmycin 2 GM in Sodium Chloride 0.9% 500 ML IV ONE (13:26)
[2025-02-10 13:34] LABS: APPEARANCE,URINE SLIGHTLY CLOUDY (CLEAR); BILIRUBIN,URINE NEGATIVE (NEGATIVE); COLOR,URINE YELLOW (YELLOW); GLUCOSE,URINE NEGATIVE (NEGATIVE); KETONES,URINE NEGATIVE (NEGATIVE); LEUKOCYTE ESTERASE,URINE MODERATE (NEGATIVE); NITRITE,URINE NEGATIVE (NEGATIVE); OCCULT BLOOD,URINE TRACE-INTACT (NEGATIVE); PROTEIN,URINE NEGATIVE (NEGATIVE); UROBILINOGEN,URINE 0.2 mg/dL (0.2-1.0)
[2025-02-10 13:41] LABS: BACTERIA,URINE MODERATE /HPF (0-FEW/HPF); EPITHELIAL CELLS,URINE MANY /HPF (NOT SEEN)
[2025-02-10 13:42] LABS: AMORPHOUS SEDIMENT,URINE MODERATE /HPF (NOT SEEN)
[2025-02-10 13:43] LABS: RBC,URINE 0-5 /HPF (0-5); WBC,URINE 40-50 /HPF (0-5/HPF)
[2025-02-10] MEDS ORDERED: Glucagon,Human Recombinant 1 MG Vial IM PRN (16:52)
[2025-02-10] MEDS ORDERED: 50% Dextrose in Water 50 ML Syringe IVPUSH PRN (16:52)
[2025-02-10] MEDS: Sodium Chloride 0.9% 1,000 ML IV SCH ×2 (17:05→18:23)
[2025-02-10] MEDS: Insulin Regular, Human 100 Units/ML 10 ML Vial IV ONE (17:12)
[2025-02-10] MEDS: Insulin Regular in 0.9 % NACL 100 ML IV SCH (17:23)
[2025-02-10 17:44] LABS: ANION GAP 11.6 mEq/L (7-13); CALCIUM 8.8 mg/dL (8.5-10.1); CREATININE 3.51 mg/dL (0.55-1.02); EST CRCL DRUG DOSING (CG) 16.99 mL/min; POTASSIUM,K 4.6 mmol/L (3.5-5.1)
[2025-02-10 17:49] LABS: ALBUMIN 2.8 g/dL (3.4-5.0); BILIRUBIN DIRECT 0.1 mg/dL (0.0-0.2); BILIRUBIN INDIRECT 0.3; BILIRUBIN TOTAL 0.4 mg/dL (0.2-1.0); MAGNESIUM 2.6 mg/dL (1.8-2.4); PHOSPHORUS 4.3 mg/dL (2.6-4.7); PROTEIN TOTAL,TP 5.9 g/dL (6.4-8.2)
[2025-02-10 17:54] LABS: A/G RATIO 0.9
[2025-02-10] MEDS: cefTRIAXone 2 GM Vial IVPUSH SCH (19:24)
[2025-02-10] MEDS: Metoprolol Tartrate 5 MG/5 ML SDV IVPUSH SCH (19:24)
[2025-02-10 20:15] LABS: CALCIUM 8.5 mg/dL (8.5-10.1); CREATININE 3.37 mg/dL (0.55-1.02); EST CRCL DRUG DOSING (CG) 17.69 mL/min
[2025-02-10] MEDS: Dextrose 5%-0.9% NaCl 1,000 ML IV SCH (20:38)
[2025-02-10 22:10] LABS: CALCIUM 8.5 mg/dL (8.5-10.1); CREATININE 3.27 mg/dL (0.55-1.02); EST CRCL DRUG DOSING (CG) 18.24 mL/min; POTASSIUM,K 4.2 mmol/L (3.5-5.1)
[2025-02-10 22:18] LABS: ANION GAP 11.2 mEq/L (7-13)
[2025-02-10] MEDS: Heparin Sodium 5,000 Units/ML Vial SUBCUT SCH (22:46)
[2025-02-11 00:07] LABS: BASOPHILS PERCENT AUTO 0.1 % (0.0-1.0); EOSINOPHILS PERCENT AUTO 1.7 % (1.0-3.0); HEMATOCRIT 29.7 % (37.0-47.0); HEMOGLOBIN 8.9 g/dL (12.0-16.0); LYMPHOCYTES PERCENT AUTO 14.8 % (20.5-50.1); MEAN CORPUSCULAR HEMOGLOBIN 30.4 pg (27.0-34.0); MEAN CORPUSCULAR VOLUME 101.4 fL (80-100); NEUTROPHILS PERCENT AUTO 76.4 % (42.2-75.2); PLATELET COUNT,PLT 228 10^3/uL (150-450); RED BLOOD CELL COUNT 2.93 10^6/uL (4.2-5.4); WHITE BLOOD CELL COUNT,WBC 10.5 10^3/uL (5.0-10.0)
[2025-02-11 00:19] LABS: ANION GAP 8.9 mEq/L (7-13); CALCIUM 8.3 mg/dL (8.5-10.1); CREATININE 3.29 mg/dL (0.55-1.02); EST CRCL DRUG DOSING (CG) 18.12 mL/min; POTASSIUM,K 3.9 mmol/L (3.5-5.1)
[2025-02-11 00:28] LABS: LACTIC ACID 0.7 mmol/L (0.4-2.0)
[2025-02-11 00:29] LABS: O2 DELIVERY DEVICE OM
[2025-02-11 00:30] LABS: ALLEN TEST PERFORMED; BASE EXCESS ARTERIAL 2 mmol/L ((-2)-(+3)); BICARBONATE,ARTERIAL 28.5 mmol/L (22-26); O2 SATURATION ARTERIAL 91 % (95-100); PCO2 ARTERIAL 57 mmHg (35-45); PH,ARTERIAL 7.32 (7.35-7.45); PO2 ARTERIAL 70 mmHg (70-100)
[2025-02-11 00:56] LABS: PERCENT FE SATURATION 10.1 % (20.0-50.0)
[2025-02-11 01:00] LABS: MAGNESIUM 2.5 mg/dL (1.8-2.4)
[2025-02-11 02:01] LABS: T4 FREE 0.79 ng/dL (0.76-1.46)
[2025-02-11 02:02] LABS: FOLIC ACID > 20.0 ng/mL (8.6-58.9)
[2025-02-11 02:12] LABS: ANION GAP 9.2 mEq/L (7-13); CALCIUM 8.2 mg/dL (8.5-10.1); CREATININE 3.28 mg/dL (0.55-1.02); EST CRCL DRUG DOSING (CG) 18.18 mL/min; POTASSIUM,K 4.2 mmol/L (3.5-5.1)
[2025-02-11 04:13] LABS: ANION GAP 12.4 mEq/L (7-13); CALCIUM 8.3 mg/dL (8.5-10.1); CREATININE 3.19 mg/dL (0.55-1.02); EST CRCL DRUG DOSING (CG) 18.69 mL/min; POTASSIUM,K 4.4 mmol/L (3.5-5.1)
[2025-02-11 05:49] LABS: BASOPHILS PERCENT AUTO 0.2 % (0.0-1.0); EOSINOPHILS PERCENT AUTO 2.7 % (1.0-3.0); HEMATOCRIT 30.6 % (37.0-47.0); HEMOGLOBIN 9.5 g/dL (12.0-16.0); LYMPHOCYTES PERCENT AUTO 17.5 % (20.5-50.1); MEAN CORPUSCULAR HEMOGLOBIN 31.6 pg (27.0-34.0); MEAN CORPUSCULAR VOLUME 101.7 fL (80-100); MONOCYTES PERCENT AUTO 7.5 % (2-8); NEUTROPHILS PERCENT AUTO 72.1 % (42.2-75.2); PLATELET COUNT,PLT 241 10^3/uL (150-450); RED BLOOD CELL COUNT 3.01 10^6/uL (4.2-5.4)
[2025-02-11 06:00] LABS: ANION GAP 13.3 mEq/L (7-13); CALCIUM 8.4 mg/dL (8.5-10.1); CREATININE 3.2 mg/dL (0.55-1.02); EST CRCL DRUG DOSING (CG) 18.63 mL/min; POTASSIUM,K 4.3 mmol/L (3.5-5.1)
[2025-02-11 08:10] LABS: ANION GAP 13.4 mEq/L (7-13); CALCIUM 8.3 mg/dL (8.5-10.1); CREATININE 3.11 mg/dL (0.55-1.02); EST CRCL DRUG DOSING (CG) 19.17 mL/min; POTASSIUM,K 4.4 mmol/L (3.5-5.1)
[2025-02-11 10:20] LABS: ANION GAP 10.5 mEq/L (7-13); CALCIUM 8.7 mg/dL (8.5-10.1); CREATININE 3.07 mg/dL (0.55-1.02); EST CRCL DRUG DOSING (CG) 19.42 mL/min; POTASSIUM,K 4.5 mmol/L (3.5-5.1)
[2025-02-11] MEDS: Pneumococcal 20-Valent Conjug 0.5 ML Syringe IM ONE (15:26)
[2025-02-11 16:39] VITALS: BP 176/95; PULSE 98
[2025-02-12 09:05] LABS: TSH ULTRASENSITIVE 1.22 uIU/mL (0.36-3.74)
[2025-02-14 15:47] LABS: AMPHETAMINES Negative ng/mL (Cutoff 20); BARBITURATES Negative ng/mL (Cutoff 50); BENZODIAZEPINES Positive ng/mL (Cutoff 50); BUPRENORPHINE Negative ng/mL (Cutoff 1); CANNABINOIDS Negative ng/mL (Cutoff 20); COCAINE METABOLITES Negative ng/mL (Cutoff 20); METHADONE Negative ng/mL (Cutoff 25); METHAMPHETAMINE Negative ng/mL (Cutoff 20); OPIATES Negative ng/mL (Cutoff 20); OXYCODONE Negative ng/mL (Cutoff 20); PHENCYCLIDINE Negative ng/mL (Cutoff 10)
== END 2025-02-11 18:30 | disposition home health service (06) | DRG 638 ==
LOC: DL.ED 12:03 → DL.MS 14:07
PROVIDERS: ADMIT Internal Medicine; ATTEND Internal Medicine
PROC: 4A033R1 Measurement of Arterial Saturation, Peripheral, Percutaneous Approach (ICD-10-PCS; principal; 2025-02-11)
DX: N12 Tubulo-interstitial nephritis, not specified as acute or chronic (principal); E11.00 Type 2 diabetes mellitus with hyperosmolarity without nonketotic hyperglycemic-hyperosmolar coma (NKHHC); E66.2 Morbid (severe) obesity with alveolar hypoventilation; E87.20 Acidosis, unspecified; Z68.43 Body mass index [BMI] 50.0-59.9, adult; E78.00 Pure hypercholesterolemia, unspecified; M19.90 Unspecified osteoarthritis, unspecified site; F32.A Depression, unspecified; E11.9 Type 2 diabetes mellitus without complications; E66.9 Obesity, unspecified; F15.90 Other stimulant use, unspecified, uncomplicated; Z96.659 Presence of unspecified artificial knee joint; E86.0 Dehydration; E11.65 Type 2 diabetes mellitus with hyperglycemia; F41.8 Other specified anxiety disorders; G89.29 Other chronic pain; N18.9 Chronic kidney disease, unspecified; E11.22 Type 2 diabetes mellitus with diabetic chronic kidney disease; I12.9 Hypertensive chronic kidney disease with stage 1 through stage 4 chronic kidney disease, or unspecified chronic kidney disease; M54.9 Dorsalgia, unspecified; K21.9 Gastro-esophageal reflux disease without esophagitis; J44.9 Chronic obstructive pulmonary disease, unspecified; R33.9 Retention of urine, unspecified; Z79.02 Long term (current) use of antithrombotics/antiplatelets; Z86.16 Personal history of COVID-19; Z90.710 Acquired absence of both cervix and uterus; Z85.118 Personal history of other malignant neoplasm of bronchus and lung; Z98.890 Other specified postprocedural states; Z79.4 Long term (current) use of insulin; Z79.82 Long term (current) use of aspirin; Z87.81 Personal history of (healed) traumatic fracture; Z79.51 Long term (current) use of inhaled steroids; Z79.899 Other long term (current) drug therapy
CPT/HCPCS: 36415; 36600; 51702; 71045; 80048; 80053; 80076; 80143; 80307; 81001; 82140; 82272; 82607; 82746; 82803; 82947; 82977; 83520; 83540; 83550; 83605; 83735; 83880; 84100; 84145; 84439; 84443; 84484; 85025; 85610; 85730; 87040; 87086; 87428-QW; 90677; 93005; 93306; 94660; 96365; 96367; 97165-GO; 97530-GO; 99239; 99284; 99285-25; A9270-GY; J0696; J1644; J2543; J7030; J7040; J7042

== ENCOUNTER 2025-06-10 19:51 | Observation (INO) | payer MEDICARE ==
[2025-06-10] MEDS ORDERED: Sennosides/Docusate Sodium 50-8.6 MG Tab PO PRN (22:44)
[2025-06-10] MEDS ORDERED: 50% Dextrose in Water 50 ML Syringe IVPUSH PRN ×2 (22:50→23:02)
[2025-06-10 23:11] LABS: BASOPHILS PERCENT AUTO 0.4 % (0.0-1.0); EOSINOPHILS PERCENT AUTO 0.8 % (1.0-3.0); LYMPHOCYTES PERCENT AUTO 12.6 % (20.5-50.1); MONOCYTES PERCENT AUTO 6.0 % (2-8); NEUTROPHILS PERCENT AUTO 80.2 % (42.2-75.2); PLATELET COUNT,PLT 306 10^3/uL (150-450); RED BLOOD CELL COUNT 3.59 10^6/uL (4.2-5.4); WHITE BLOOD CELL COUNT,WBC 11.0 10^3/uL (5.0-10.0)
[2025-06-10] MEDS: Insulin Glarg,Human.Rec.Analog 100 Unit/ML 10 ML Vial SUBCUT SCH (23:19)
[2025-06-10 23:28] LABS: A/G RATIO 1.0; ALANINE AMINOTRANSFERASE,ALT 29.0 U/L (14-59); ASPARTATE AMNIOTRANSFERASE,AST 19.0 U/L (15-37); BILIRUBIN DIRECT 0.1 mg/dL (0.0-0.2); BILIRUBIN INDIRECT 0.2; BILIRUBIN TOTAL 0.3 mg/dL (0.2-1.0); BLOOD UREA NITROGEN,BUN 40.0 mg/dL (7-18); CARBON DIOXIDE,CO2 34.0 mmol/L (21-32); CHLORIDE,CL 103.0 mmol/L (98-107); CREATININE 2.59 mg/dL (0.55-1.02); EST CRCL DRUG DOSING (CG) 22.74 mL/min; GLUCOSE RANDOM 95.0 mg/dL (70-99); PHOSPHORUS 4.1 mg/dL (2.6-4.7); POTASSIUM,K 4.0 mmol/L (3.5-5.1); PROTEIN TOTAL,TP 6.7 g/dL (6.4-8.2); SODIUM,NA 142.0 mmol/L (136-145)
[2025-06-10 23:29] LABS: ESTIMATED GFR 21.0 mL/min (>=60)
[2025-06-11] MEDS: Heparin Sodium 5,000 Units/ML Vial SUBCUT SCH (07:17)
[2025-06-11] MEDS ORDERED: Sodium Chloride 0.9% 10 ML Syringe FLUSH PRN (23:36)
[2025-06-12 07:42] VITALS: BP 110/74; PULSE 89
[2025-06-12] MEDS: Sodium Chloride 0.9% 10 ML Syringe FLUSH SCH (08:30)
[2025-06-12] MEDS ORDERED: Venlafaxine 37.5 MG Cap.ER PO SCH (21:00)
== END 2025-06-12 09:39 | disposition swing bed (61) ==
LOC: DL.ED 19:51 → DL.MS 21:33
PROVIDERS: ADMIT Internal Medicine; ATTEND Internal Medicine
DX: S82.002A Unspecified fracture of left patella, initial encounter for closed fracture (principal); E78.00 Pure hypercholesterolemia, unspecified; I10 Essential (primary) hypertension; J44.9 Chronic obstructive pulmonary disease, unspecified; K21.9 Gastro-esophageal reflux disease without esophagitis; E11.9 Type 2 diabetes mellitus without complications; F41.9 Anxiety disorder, unspecified; F32.A Depression, unspecified; W17.89XA Other fall from one level to another, initial encounter; Z79.82 Long term (current) use of aspirin; Z79.899 Other long term (current) drug therapy
CPT/HCPCS: 36415; 51701; 51702; 73610-RT; 80048; 80076; 82947; 83735; 84100; 85025; 96372; 96374; 97165-GO; 97530-GO; 99222; 99232; 99239; 99284; 99285; A9270-GY; G0378; J1644; J1815-GY; J2270

== ENCOUNTER 2025-06-12 09:39 | Inpatient (IN) | payer MEDICARE ==
[2025-06-12] MEDS ORDERED: Sodium Chloride 0.9% 10 ML Syringe FLUSH PRN (09:47)
[2025-06-12] MEDS ORDERED: 50% Dextrose in Water 50 ML Syringe IVPUSH PRN (09:47)
[2025-06-12] MEDS ORDERED: Sennosides/Docusate Sodium 50-8.6 MG Tab PO PRN (09:47)
[2025-06-12] MEDS: Heparin Sodium 5,000 Units/ML Vial SUBCUT SCH (14:26)
[2025-06-12] MEDS: Venlafaxine 37.5 MG Cap.ER PO SCH (21:04)
[2025-06-12] MEDS: Sodium Chloride 0.9% 10 ML Syringe FLUSH SCH (21:09)
[2025-06-12] MEDS: Insulin Glarg,Human.Rec.Analog 100 Unit/ML 10 ML Vial SUBCUT SCH (21:10)
[2025-06-17 06:17] LABS: BASOPHILS PERCENT AUTO 0.4 % (0.0-1.0); EOSINOPHILS PERCENT AUTO 3.6 % (1.0-3.0); LYMPHOCYTES PERCENT AUTO 17.4 % (20.5-50.1); MONOCYTES PERCENT AUTO 10.9 % (2-8); NEUTROPHILS PERCENT AUTO 67.7 % (42.2-75.2); PLATELET COUNT,PLT 348 10^3/uL (150-450); RED BLOOD CELL COUNT 2.98 10^6/uL (4.2-5.4); WHITE BLOOD CELL COUNT,WBC 7.2 10^3/uL (5.0-10.0)
[2025-06-17 06:39] LABS: BLOOD UREA NITROGEN,BUN 50.0 mg/dL (7-18); CARBON DIOXIDE,CO2 31.0 mmol/L (21-32); CHLORIDE,CL 104.0 mmol/L (98-107); CHOLESTEROL HDL 63.0 mg/dL (40-59); CHOLESTEROL LDL CALCULATED 57.0 mg/dL (0-100); CHOLESTEROL TOTAL 134.0 mg/dL (0-199); CREATININE 2.69 mg/dL (0.55-1.02); EST CRCL DRUG DOSING (CG) 21.9 mL/min; GLUCOSE RANDOM 125.0 mg/dL (70-99); POTASSIUM,K 5.0 mmol/L (3.5-5.1); SODIUM,NA 140.0 mmol/L (136-145)
[2025-06-17 06:43] LABS: ESTIMATED GFR 20.0 mL/min (>=60)
[2025-06-22 19:33] VITALS: BP 165/82; PULSE 81
[2025-06-23 03:49] LABS: BASOPHILS PERCENT AUTO 0.9 % (0.0-1.0); EOSINOPHILS PERCENT AUTO 3.5 % (1.0-3.0); LYMPHOCYTES PERCENT AUTO 21.6 % (20.5-50.1); MONOCYTES PERCENT AUTO 9.3 % (2-8); NEUTROPHILS PERCENT AUTO 64.7 % (42.2-75.2); PLATELET COUNT,PLT 393 10^3/uL (150-450); RED BLOOD CELL COUNT 3.24 10^6/uL (4.2-5.4); WHITE BLOOD CELL COUNT,WBC 7.5 10^3/uL (5.0-10.0)
[2025-06-23 04:03] LABS: BLOOD UREA NITROGEN,BUN 40.0 mg/dL (7-18); CARBON DIOXIDE,CO2 32.0 mmol/L (21-32); CHLORIDE,CL 106.0 mmol/L (98-107); CREATININE 2.47 mg/dL (0.55-1.02); EST CRCL DRUG DOSING (CG) 23.85 mL/min; GLUCOSE RANDOM 180.0 mg/dL (70-99); POTASSIUM,K 4.5 mmol/L (3.5-5.1); SODIUM,NA 142.0 mmol/L (136-145)
[2025-06-23 04:09] LABS: ESTIMATED GFR 22.0 mL/min (>=60)
== END 2025-06-23 06:09 | disposition home or self-care (01) | DRG 948 ==
LOC: DL.MS 09:39
PROVIDERS: ADMIT Internal Medicine; ATTEND Student in an Organized Health Care Education/Training Program
DX: R53.81 Other malaise (principal); Z68.43 Body mass index [BMI] 50.0-59.9, adult; N18.4 Chronic kidney disease, stage 4 (severe); E66.01 Morbid (severe) obesity due to excess calories; E78.00 Pure hypercholesterolemia, unspecified; J44.9 Chronic obstructive pulmonary disease, unspecified; G47.30 Sleep apnea, unspecified; K21.9 Gastro-esophageal reflux disease without esophagitis; I12.9 Hypertensive chronic kidney disease with stage 1 through stage 4 chronic kidney disease, or unspecified chronic kidney disease; K59.00 Constipation, unspecified; D64.9 Anemia, unspecified; M19.90 Unspecified osteoarthritis, unspecified site; M81.0 Age-related osteoporosis without current pathological fracture; F41.9 Anxiety disorder, unspecified; F32.A Depression, unspecified; E11.22 Type 2 diabetes mellitus with diabetic chronic kidney disease; Z79.82 Long term (current) use of aspirin; Z79.899 Other long term (current) drug therapy; Z85.118 Personal history of other malignant neoplasm of bronchus and lung; Z96.659 Presence of unspecified artificial knee joint; Z79.4 Long term (current) use of insulin
CPT/HCPCS: 36415; 51702; 73721-LT; 80048; 80061; 82947; 83036; 83735; 85025; 97110-GO; 97110-GP; 97161-GP; 97165-GO; 97530-GO; 97530-GP; 99305; 99309; 99315; A9270-GY; J1644; J1815-GY

== ENCOUNTER 2025-06-23 10:10 | Inpatient (IN) | payer MEDICARE, MEDICAID ==
[2025-06-23] MEDS ORDERED: Sodium Chloride 0.9% 10 ML Syringe FLUSH PRN (18:25)
[2025-06-23] MEDS ORDERED: Ondansetron 4 MG/2 ML SDV IVPUSH PRN (18:25)
[2025-06-23] MEDS ORDERED: 50% Dextrose in Water 50 ML Syringe IVPUSH PRN (18:35)
[2025-06-23] MEDS ORDERED: Sennosides/Docusate Sodium 50-8.6 MG Tab PO PRN (19:15)
[2025-06-23] MEDS: Sodium Chloride 0.9% 10 ML Syringe FLUSH SCH (21:17)
[2025-06-23] MEDS: Insulin Glarg,Human.Rec.Analog 100 Unit/ML 10 ML Vial SUBCUT SCH (21:18)
[2025-06-24 06:38] LABS: BASOPHILS PERCENT AUTO 0.2 % (0.0-1.0); EOSINOPHILS PERCENT AUTO 0.1 % (1.0-3.0); LYMPHOCYTES PERCENT AUTO 10.8 % (20.5-50.1); MONOCYTES PERCENT AUTO 6.9 % (2-8); NEUTROPHILS PERCENT AUTO 82.0 % (42.2-75.2); PLATELET COUNT,PLT 409 10^3/uL (150-450); RED BLOOD CELL COUNT 3.32 10^6/uL (4.2-5.4); WHITE BLOOD CELL COUNT,WBC 12.7 10^3/uL (5.0-10.0)
[2025-06-24 06:57] LABS: A/G RATIO 1.0; ALANINE AMINOTRANSFERASE,ALT 22 U/L (14-59); ASPARTATE AMNIOTRANSFERASE,AST 18 U/L (15-37); BILIRUBIN TOTAL 0.4 mg/dL (0.2-1.0); BLOOD UREA NITROGEN,BUN 40 mg/dL (7-18); CARBON DIOXIDE,CO2 31 mmol/L (21-32); CHLORIDE,CL 106 mmol/L (98-107); CREATININE 2.25 mg/dL (0.55-1.02); GLUCOSE RANDOM 137 mg/dL (70-99); POTASSIUM,K 4.8 mmol/L (3.5-5.1); PROTEIN TOTAL,TP 7.1 g/dL (6.4-8.2); SODIUM,NA 142 mmol/L (136-145)
[2025-06-24 06:58] LABS: ESTIMATED GFR 25 mL/min (>=60)
[2025-06-24] MEDS: Benzocaine/Cetylpyridinium/Menthol Lozenge MUCMEM PRN (10:03)
[2025-06-24] MEDS: Venlafaxine 37.5 MG Cap.ER PO SCH (10:09)
[2025-06-25 06:33] LABS: BASOPHILS PERCENT AUTO 0.5 % (0.0-1.0); EOSINOPHILS PERCENT AUTO 1.4 % (1.0-3.0); LYMPHOCYTES PERCENT AUTO 18.1 % (20.5-50.1); MONOCYTES PERCENT AUTO 8.5 % (2-8); NEUTROPHILS PERCENT AUTO 71.5 % (42.2-75.2); PLATELET COUNT,PLT 395 10^3/uL (150-450); RED BLOOD CELL COUNT 3.25 10^6/uL (4.2-5.4); WHITE BLOOD CELL COUNT,WBC 8.5 10^3/uL (5.0-10.0)
[2025-06-25 07:11] LABS: ALANINE AMINOTRANSFERASE,ALT 12.0 U/L (14-59); ASPARTATE AMNIOTRANSFERASE,AST 15.0 U/L (15-37); BILIRUBIN TOTAL 0.3 mg/dL (0.2-1.0); BLOOD UREA NITROGEN,BUN 44.0 mg/dL (7-18); CARBON DIOXIDE,CO2 32.0 mmol/L (21-32); CHLORIDE,CL 106.0 mmol/L (98-107); CREATININE 2.21 mg/dL (0.55-1.02); EST CRCL DRUG DOSING (CG) 26.65 mL/min; GLUCOSE RANDOM 97.0 mg/dL (70-99); POTASSIUM,K 4.6 mmol/L (3.5-5.1); PROTEIN TOTAL,TP 6.7 g/dL (6.4-8.2); SODIUM,NA 144.0 mmol/L (136-145)
[2025-06-25 07:12] LABS: A/G RATIO 0.91; ESTIMATED GFR 25.0 mL/min (>=60)
[2025-06-25] MEDS: Insulin Glarg,Human.Rec.Analog 100 Unit/ML 10 ML Vial SUBCUT SCH (21:34)
[2025-06-26 06:22] LABS: BASOPHILS PERCENT AUTO 0.5 % (0.0-1.0); EOSINOPHILS PERCENT AUTO 3.4 % (1.0-3.0); LYMPHOCYTES PERCENT AUTO 23.7 % (20.5-50.1); MONOCYTES PERCENT AUTO 9.9 % (2-8); NEUTROPHILS PERCENT AUTO 62.5 % (42.2-75.2); PLATELET COUNT,PLT 389 10^3/uL (150-450); RED BLOOD CELL COUNT 3.29 10^6/uL (4.2-5.4); WHITE BLOOD CELL COUNT,WBC 7.4 10^3/uL (5.0-10.0)
[2025-06-26 06:46] LABS: ALANINE AMINOTRANSFERASE,ALT 12.0 U/L (14-59); ASPARTATE AMNIOTRANSFERASE,AST 13.0 U/L (15-37); BILIRUBIN TOTAL 0.3 mg/dL (0.2-1.0); BLOOD UREA NITROGEN,BUN 51.0 mg/dL (7-18); CARBON DIOXIDE,CO2 35.0 mmol/L (21-32); CHLORIDE,CL 104.0 mmol/L (98-107); CREATININE 2.39 mg/dL (0.55-1.02); EST CRCL DRUG DOSING (CG) 24.65 mL/min; GLUCOSE RANDOM 106.0 mg/dL (70-99); POTASSIUM,K 4.9 mmol/L (3.5-5.1); PROTEIN TOTAL,TP 6.5 g/dL (6.4-8.2); SODIUM,NA 143.0 mmol/L (136-145)
[2025-06-26 06:51] LABS: A/G RATIO 0.91; ESTIMATED GFR 23.0 mL/min (>=60)
[2025-06-26] MEDS ORDERED: Benzocaine/Cetylpyridinium/Menthol Lozenge MUCMEM PRN (10:58)
[2025-06-26] MEDS ORDERED: Sennosides/Docusate Sodium 50-8.6 MG Tab PO PRN (11:02)
[2025-06-26] MEDS ORDERED: Insulin Glarg,Human.Rec.Analog 100 Unit/ML 10 ML Vial SUBCUT SCH (20:00)
[2025-06-26] MEDS: Venlafaxine 37.5 MG Cap.ER PO SCH (20:38)
[2025-06-26] MEDS: Insulin Glarg,Human.Rec.Analog 100 Unit/ML 10 ML Vial SUBCUT SCH (20:43)
[2025-06-26] MEDS: Sodium Chloride 0.9% 10 ML Syringe FLUSH SCH (20:51)
[2025-06-27 06:19] LABS: BASOPHILS PERCENT AUTO 0.7 % (0.0-1.0); EOSINOPHILS PERCENT AUTO 5.1 % (1.0-3.0); LYMPHOCYTES PERCENT AUTO 24.7 % (20.5-50.1); MONOCYTES PERCENT AUTO 9.5 % (2-8); NEUTROPHILS PERCENT AUTO 60.0 % (42.2-75.2); PLATELET COUNT,PLT 360 10^3/uL (150-450); RED BLOOD CELL COUNT 3.29 10^6/uL (4.2-5.4); WHITE BLOOD CELL COUNT,WBC 6.7 10^3/uL (5.0-10.0)
[2025-06-27 06:44] LABS: ALANINE AMINOTRANSFERASE,ALT 13.0 U/L (14-59); ASPARTATE AMNIOTRANSFERASE,AST 12.0 U/L (15-37); BILIRUBIN TOTAL 0.3 mg/dL (0.2-1.0); BLOOD UREA NITROGEN,BUN 61.0 mg/dL (7-18); CARBON DIOXIDE,CO2 34.0 mmol/L (21-32); CHLORIDE,CL 105.0 mmol/L (98-107); CREATININE 2.58 mg/dL (0.55-1.02); EST CRCL DRUG DOSING (CG) 22.83 mL/min; GLUCOSE RANDOM 129.0 mg/dL (70-99); POTASSIUM,K 4.6 mmol/L (3.5-5.1); PROTEIN TOTAL,TP 6.4 g/dL (6.4-8.2); SODIUM,NA 142.0 mmol/L (136-145)
[2025-06-27 06:47] LABS: A/G RATIO 0.88; ESTIMATED GFR 21.0 mL/min (>=60)
[2025-06-28 06:25] LABS: BASOPHILS PERCENT AUTO 0.8 % (0.0-1.0); EOSINOPHILS PERCENT AUTO 5.7 % (1.0-3.0); LYMPHOCYTES PERCENT AUTO 26.3 % (20.5-50.1); MONOCYTES PERCENT AUTO 9.6 % (2-8); NEUTROPHILS PERCENT AUTO 57.6 % (42.2-75.2); PLATELET COUNT,PLT 367 10^3/uL (150-450); RED BLOOD CELL COUNT 3.31 10^6/uL (4.2-5.4); WHITE BLOOD CELL COUNT,WBC 6.7 10^3/uL (5.0-10.0)
[2025-06-28 06:59] LABS: ALANINE AMINOTRANSFERASE,ALT 13.0 U/L (14-59); ASPARTATE AMNIOTRANSFERASE,AST 12.0 U/L (15-37); BILIRUBIN TOTAL 0.3 mg/dL (0.2-1.0); BLOOD UREA NITROGEN,BUN 62.0 mg/dL (7-18); CARBON DIOXIDE,CO2 32.0 mmol/L (21-32); CHLORIDE,CL 102.0 mmol/L (98-107); CREATININE 2.73 mg/dL (0.55-1.02); EST CRCL DRUG DOSING (CG) 21.58 mL/min; GLUCOSE RANDOM 134.0 mg/dL (70-99); POTASSIUM,K 4.5 mmol/L (3.5-5.1); PROTEIN TOTAL,TP 6.4 g/dL (6.4-8.2); SODIUM,NA 139.0 mmol/L (136-145)
[2025-06-28 07:00] LABS: A/G RATIO 0.94; ESTIMATED GFR 19.0 mL/min (>=60)
[2025-06-28] MEDS ORDERED: Insulin Glarg,Human.Rec.Analog 100 Unit/ML 10 ML Vial SUBCUT SCH (20:00)
[2025-06-28] MEDS: Insulin Glarg,Human.Rec.Analog 100 Unit/ML 10 ML Vial SUBCUT SCH (21:21)
[2025-06-29 06:42] LABS: BASOPHILS PERCENT AUTO 0.5 % (0.0-1.0); EOSINOPHILS PERCENT AUTO 5.6 % (1.0-3.0); LYMPHOCYTES PERCENT AUTO 23.1 % (20.5-50.1); MONOCYTES PERCENT AUTO 10.7 % (2-8); NEUTROPHILS PERCENT AUTO 60.1 % (42.2-75.2); PLATELET COUNT,PLT 364 10^3/uL (150-450); RED BLOOD CELL COUNT 3.30 10^6/uL (4.2-5.4); WHITE BLOOD CELL COUNT,WBC 6.3 10^3/uL (5.0-10.0)
[2025-06-29 06:57] LABS: ALANINE AMINOTRANSFERASE,ALT 14.0 U/L (14-59); ASPARTATE AMNIOTRANSFERASE,AST 11.0 U/L (15-37); BILIRUBIN TOTAL 0.3 mg/dL (0.2-1.0); BLOOD UREA NITROGEN,BUN 65.0 mg/dL (7-18); CARBON DIOXIDE,CO2 30.0 mmol/L (21-32); CHLORIDE,CL 102.0 mmol/L (98-107); CREATININE 2.83 mg/dL (0.55-1.02); EST CRCL DRUG DOSING (CG) 20.81 mL/min; GLUCOSE RANDOM 143.0 mg/dL (70-99); POTASSIUM,K 4.3 mmol/L (3.5-5.1); PROTEIN TOTAL,TP 6.5 g/dL (6.4-8.2); SODIUM,NA 140.0 mmol/L (136-145)
[2025-06-29 06:59] LABS: A/G RATIO 0.97; ESTIMATED GFR 19.0 mL/min (>=60)
[2025-06-29 11:40] LABS: GLUCOSE,URINE 500 (NEGATIVE); OCCULT BLOOD,URINE TRACE-INTACT (NEGATIVE)
[2025-06-29 11:49] LABS: APPEARANCE,URINE SLIGHTLY CLOUDY (CLEAR)
[2025-06-29 11:51] LABS: EPITHELIAL CELLS,URINE FEW /HPF (NOT SEEN)
[2025-06-30 06:41] LABS: BASOPHILS PERCENT AUTO 0.5 % (0.0-1.0); EOSINOPHILS PERCENT AUTO 5.6 % (1.0-3.0); LYMPHOCYTES PERCENT AUTO 23.0 % (20.5-50.1); MONOCYTES PERCENT AUTO 10.5 % (2-8); NEUTROPHILS PERCENT AUTO 60.4 % (42.2-75.2); PLATELET COUNT,PLT 314 10^3/uL (150-450); RED BLOOD CELL COUNT 3.04 10^6/uL (4.2-5.4); WHITE BLOOD CELL COUNT,WBC 6.1 10^3/uL (5.0-10.0)
[2025-06-30 07:09] LABS: ALANINE AMINOTRANSFERASE,ALT 13.0 U/L (14-59); ASPARTATE AMNIOTRANSFERASE,AST 9.0 U/L (15-37); BILIRUBIN TOTAL 0.1 mg/dL (0.2-1.0); BLOOD UREA NITROGEN,BUN 62.0 mg/dL (7-18); CARBON DIOXIDE,CO2 28.0 mmol/L (21-32); CHLORIDE,CL 108.0 mmol/L (98-107); CREATININE 2.61 mg/dL (0.55-1.02); EST CRCL DRUG DOSING (CG) 22.57 mL/min; GLUCOSE RANDOM 142.0 mg/dL (70-99); POTASSIUM,K 5.0 mmol/L (3.5-5.1); PROTEIN TOTAL,TP 5.9 g/dL (6.4-8.2); SODIUM,NA 143.0 mmol/L (136-145)
[2025-06-30 07:17] LABS: A/G RATIO 0.84; ESTIMATED GFR 21.0 mL/min (>=60)
[2025-07-01 08:14] LABS: BASOPHILS PERCENT AUTO 0.7 % (0.0-1.0); EOSINOPHILS PERCENT AUTO 6.0 % (1.0-3.0); LYMPHOCYTES PERCENT AUTO 24.1 % (20.5-50.1); MONOCYTES PERCENT AUTO 9.5 % (2-8); NEUTROPHILS PERCENT AUTO 59.7 % (42.2-75.2); PLATELET COUNT,PLT 316 10^3/uL (150-450); RED BLOOD CELL COUNT 2.99 10^6/uL (4.2-5.4); WHITE BLOOD CELL COUNT,WBC 5.8 10^3/uL (5.0-10.0)
[2025-07-01 08:31] LABS: ALANINE AMINOTRANSFERASE,ALT 14.0 U/L (14-59); ASPARTATE AMNIOTRANSFERASE,AST 14.0 U/L (15-37); BILIRUBIN TOTAL 0.2 mg/dL (0.2-1.0); BLOOD UREA NITROGEN,BUN 50.0 mg/dL (7-18); CARBON DIOXIDE,CO2 27.0 mmol/L (21-32); CHLORIDE,CL 110.0 mmol/L (98-107); CREATININE 2.4 mg/dL (0.55-1.02); EST CRCL DRUG DOSING (CG) 24.54 mL/min; GLUCOSE RANDOM 98.0 mg/dL (70-99); POTASSIUM,K 4.8 mmol/L (3.5-5.1); PROTEIN TOTAL,TP 5.9 g/dL (6.4-8.2); SODIUM,NA 143.0 mmol/L (136-145)
[2025-07-01 08:35] LABS: A/G RATIO 0.84; ESTIMATED GFR 23.0 mL/min (>=60)
[2025-07-02 06:13] LABS: BASOPHILS PERCENT AUTO 0.8 % (0.0-1.0); EOSINOPHILS PERCENT AUTO 5.2 % (1.0-3.0); LYMPHOCYTES PERCENT AUTO 28.6 % (20.5-50.1); MONOCYTES PERCENT AUTO 9.5 % (2-8); NEUTROPHILS PERCENT AUTO 55.9 % (42.2-75.2); PLATELET COUNT,PLT 319 10^3/uL (150-450); RED BLOOD CELL COUNT 3.01 10^6/uL (4.2-5.4); WHITE BLOOD CELL COUNT,WBC 6.0 10^3/uL (5.0-10.0)
[2025-07-02 06:35] LABS: ALANINE AMINOTRANSFERASE,ALT 17.0 U/L (14-59); ASPARTATE AMNIOTRANSFERASE,AST 12.0 U/L (15-37); BILIRUBIN TOTAL 0.2 mg/dL (0.2-1.0); BLOOD UREA NITROGEN,BUN 45.0 mg/dL (7-18); CARBON DIOXIDE,CO2 28.0 mmol/L (21-32); CHLORIDE,CL 110.0 mmol/L (98-107); CREATININE 2.05 mg/dL (0.55-1.02); EST CRCL DRUG DOSING (CG) 28.73 mL/min; GLUCOSE RANDOM 128.0 mg/dL (70-99); POTASSIUM,K 5.1 mmol/L (3.5-5.1); PROTEIN TOTAL,TP 6.0 g/dL (6.4-8.2); SODIUM,NA 144.0 mmol/L (136-145)
[2025-07-02 06:36] LABS: A/G RATIO 0.82; ESTIMATED GFR 27.0 mL/min (>=60)
[2025-07-02] MEDS: Insulin Glarg,Human.Rec.Analog 100 Unit/ML 10 ML Vial SUBCUT SCH (20:13)
[2025-07-03 06:14] LABS: BASOPHILS PERCENT AUTO 0.5 % (0.0-1.0); EOSINOPHILS PERCENT AUTO 4.8 % (1.0-3.0); LYMPHOCYTES PERCENT AUTO 27.6 % (20.5-50.1); MONOCYTES PERCENT AUTO 9.1 % (2-8); NEUTROPHILS PERCENT AUTO 58.0 % (42.2-75.2); PLATELET COUNT,PLT 320 10^3/uL (150-450); RED BLOOD CELL COUNT 2.98 10^6/uL (4.2-5.4); WHITE BLOOD CELL COUNT,WBC 5.6 10^3/uL (5.0-10.0)
[2025-07-03 06:36] LABS: ALANINE AMINOTRANSFERASE,ALT 22.0 U/L (14-59); ASPARTATE AMNIOTRANSFERASE,AST 14.0 U/L (15-37); BILIRUBIN TOTAL 0.3 mg/dL (0.2-1.0); BLOOD UREA NITROGEN,BUN 42.0 mg/dL (7-18); CARBON DIOXIDE,CO2 29.0 mmol/L (21-32); CHLORIDE,CL 109.0 mmol/L (98-107); CREATININE 2.01 mg/dL (0.55-1.02); EST CRCL DRUG DOSING (CG) 29.31 mL/min; GLUCOSE RANDOM 72.0 mg/dL (70-99); POTASSIUM,K 4.4 mmol/L (3.5-5.1); PROTEIN TOTAL,TP 6.0 g/dL (6.4-8.2); SODIUM,NA 144.0 mmol/L (136-145)
[2025-07-03 06:39] LABS: A/G RATIO 0.82; ESTIMATED GFR 28.0 mL/min (>=60)
[2025-07-03] MEDS ORDERED: Sennosides/Docusate Sodium 50-8.6 MG Tab PO PRN (08:54)
[2025-07-03 16:18] VITALS: BP 161/82; PULSE 74
[2025-07-03] MEDS ORDERED: Insulin Glarg,Human.Rec.Analog 100 Unit/ML 10 ML Vial SUBCUT SCH (20:00)
[2025-07-04] MEDS ORDERED: Omeprazole 20 MG Cap.CR PO SCH (06:00)
== END 2025-07-03 17:00 | disposition swing bed (61) | DRG 948 ==
LOC: DL.MS 10:10 → OBSVTOIN 06-24 10:10
PROVIDERS: ADMIT Student in an Organized Health Care Education/Training Program; ATTEND Student in an Organized Health Care Education/Training Program
DX: R53.81 Other malaise (principal); N17.9 Acute kidney failure, unspecified; N18.4 Chronic kidney disease, stage 4 (severe); N39.0 Urinary tract infection, site not specified; Z68.43 Body mass index [BMI] 50.0-59.9, adult; Z66 Do not resuscitate; J44.9 Chronic obstructive pulmonary disease, unspecified; I12.9 Hypertensive chronic kidney disease with stage 1 through stage 4 chronic kidney disease, or unspecified chronic kidney disease; E11.22 Type 2 diabetes mellitus with diabetic chronic kidney disease; G47.33 Obstructive sleep apnea (adult) (pediatric); M19.90 Unspecified osteoarthritis, unspecified site; E11.40 Type 2 diabetes mellitus with diabetic neuropathy, unspecified; E78.00 Pure hypercholesterolemia, unspecified; F41.9 Anxiety disorder, unspecified; D64.9 Anemia, unspecified; E66.01 Morbid (severe) obesity due to excess calories; K59.00 Constipation, unspecified; F32.A Depression, unspecified; Z96.659 Presence of unspecified artificial knee joint; Z79.82 Long term (current) use of aspirin; Z79.4 Long term (current) use of insulin; Z79.899 Other long term (current) drug therapy; Z85.118 Personal history of other malignant neoplasm of bronchus and lung; Z98.890 Other specified postprocedural states
CPT/HCPCS: 36415; 51798; 80053; 81001; 82947; 83735; 85025; 87086; 87088; 87186; 97110-GO; 97110-GP; 97161-GP; 97165-GO; 97530-GO; 97530-GP; 99223; 99232; 99233; 99238; A9270-GY; G0378; G0379; J0696; J1650; J1815-GY; J7030

== ENCOUNTER 2025-07-03 15:50 | Inpatient (IN) | payer MEDICARE, MEDICAID ==
[2025-07-03] MEDS ORDERED: 50% Dextrose in Water 50 ML Syringe IVPUSH PRN (16:24)
[2025-07-03] MEDS ORDERED: Ondansetron 4 MG Tab.DIS PO PRN (16:32)
[2025-07-03] MEDS ORDERED: Glucose Gel 15 GM in 37.5 GM Tube PO PRN (16:35)
[2025-07-03] MEDS ORDERED: Lactulose Soln 10 GM/15 ML 30 ML UD Cup PO PRN (17:20)
[2025-07-03] MEDS: Venlafaxine 37.5 MG Cap.ER PO SCH (20:09)
[2025-07-03] MEDS: Sennosides/Docusate Sodium 50-8.6 MG Tab PO PRN (20:09)
[2025-07-03] MEDS: Insulin Glarg,Human.Rec.Analog 100 Unit/ML 10 ML Vial SUBCUT SCH (20:10)
[2025-07-04] MEDS ORDERED: Omeprazole 20 MG Cap.CR PO SCH (06:00)
[2025-07-04] MEDS: Omeprazole 20 MG Cap.CR PO SCH (06:16)
[2025-07-04 06:29] LABS: BASOPHILS PERCENT AUTO 0.7 % (0.0-1.0); EOSINOPHILS PERCENT AUTO 4.2 % (1.0-3.0); LYMPHOCYTES PERCENT AUTO 23.8 % (20.5-50.1); MONOCYTES PERCENT AUTO 8.5 % (2-8); NEUTROPHILS PERCENT AUTO 62.8 % (42.2-75.2); PLATELET COUNT,PLT 346 10^3/uL (150-450); RED BLOOD CELL COUNT 3.13 10^6/uL (4.2-5.4); WHITE BLOOD CELL COUNT,WBC 6.0 10^3/uL (5.0-10.0)
[2025-07-04 06:46] LABS: BLOOD UREA NITROGEN,BUN 45.0 mg/dL (7-18); CARBON DIOXIDE,CO2 30.0 mmol/L (21-32); CHLORIDE,CL 109.0 mmol/L (98-107); CREATININE 2.29 mg/dL (0.55-1.02); EST CRCL DRUG DOSING (CG) 25.72 mL/min; GLUCOSE RANDOM 90.0 mg/dL (70-99); POTASSIUM,K 4.9 mmol/L (3.5-5.1); SODIUM,NA 145.0 mmol/L (136-145)
[2025-07-04 06:57] LABS: ESTIMATED GFR 24.0 mL/min (>=60)
[2025-07-04] MEDS ORDERED: Insulin Glarg,Human.Rec.Analog 100 Unit/ML 10 ML Vial SUBCUT SCH (20:00)
[2025-07-04] MEDS: Insulin Glarg,Human.Rec.Analog 100 Unit/ML 10 ML Vial SUBCUT SCH (20:14)
[2025-07-05 06:26] LABS: BASOPHILS PERCENT AUTO 0.6 % (0.0-1.0); EOSINOPHILS PERCENT AUTO 4.3 % (1.0-3.0); LYMPHOCYTES PERCENT AUTO 28.7 % (20.5-50.1); MONOCYTES PERCENT AUTO 9.4 % (2-8); NEUTROPHILS PERCENT AUTO 57.0 % (42.2-75.2); PLATELET COUNT,PLT 358 10^3/uL (150-450); RED BLOOD CELL COUNT 3.20 10^6/uL (4.2-5.4); WHITE BLOOD CELL COUNT,WBC 6.5 10^3/uL (5.0-10.0)
[2025-07-05 07:01] LABS: BLOOD UREA NITROGEN,BUN 44.0 mg/dL (7-18); CARBON DIOXIDE,CO2 31.0 mmol/L (21-32); CHLORIDE,CL 107.0 mmol/L (98-107); CREATININE 2.48 mg/dL (0.55-1.02); EST CRCL DRUG DOSING (CG) 23.75 mL/min; ESTIMATED GFR 22.0 mL/min (>=60); GLUCOSE RANDOM 129.0 mg/dL (70-99); POTASSIUM,K 4.5 mmol/L (3.5-5.1); SODIUM,NA 143.0 mmol/L (136-145)
[2025-07-06 07:06] LABS: BASOPHILS PERCENT AUTO 0.5 % (0.0-1.0); EOSINOPHILS PERCENT AUTO 3.7 % (1.0-3.0); LYMPHOCYTES PERCENT AUTO 25.7 % (20.5-50.1); MONOCYTES PERCENT AUTO 10.4 % (2-8); NEUTROPHILS PERCENT AUTO 59.7 % (42.2-75.2); PLATELET COUNT,PLT 355 10^3/uL (150-450); RED BLOOD CELL COUNT 3.21 10^6/uL (4.2-5.4); WHITE BLOOD CELL COUNT,WBC 6.5 10^3/uL (5.0-10.0)
[2025-07-06 07:19] LABS: BLOOD UREA NITROGEN,BUN 46.0 mg/dL (7-18); CARBON DIOXIDE,CO2 30.0 mmol/L (21-32); CHLORIDE,CL 106.0 mmol/L (98-107); CREATININE 2.55 mg/dL (0.55-1.02); EST CRCL DRUG DOSING (CG) 23.1 mL/min; GLUCOSE RANDOM 165.0 mg/dL (70-99); POTASSIUM,K 4.8 mmol/L (3.5-5.1); SODIUM,NA 146.0 mmol/L (136-145)
[2025-07-06 07:31] LABS: ESTIMATED GFR 21.0 mL/min (>=60)
[2025-07-06] MEDS ORDERED: Sodium Chloride 0.9% 10 ML Syringe FLUSH PRN (11:52)
[2025-07-06] MEDS: Sodium Chloride 0.9% 10 ML Syringe FLUSH SCH (20:14)
[2025-07-07 06:43] LABS: BASOPHILS PERCENT AUTO 0.5 % (0.0-1.0); EOSINOPHILS PERCENT AUTO 3.7 % (1.0-3.0); LYMPHOCYTES PERCENT AUTO 28.8 % (20.5-50.1); MONOCYTES PERCENT AUTO 10.3 % (2-8); NEUTROPHILS PERCENT AUTO 56.7 % (42.2-75.2); PLATELET COUNT,PLT 337 10^3/uL (150-450); RED BLOOD CELL COUNT 3.17 10^6/uL (4.2-5.4); WHITE BLOOD CELL COUNT,WBC 7.4 10^3/uL (5.0-10.0)
[2025-07-07 07:23] LABS: BLOOD UREA NITROGEN,BUN 43.0 mg/dL (7-18); CARBON DIOXIDE,CO2 29.0 mmol/L (21-32); CHLORIDE,CL 107.0 mmol/L (98-107); CREATININE 2.52 mg/dL (0.55-1.02); EST CRCL DRUG DOSING (CG) 23.38 mL/min; GLUCOSE RANDOM 154.0 mg/dL (70-99); POTASSIUM,K 4.7 mmol/L (3.5-5.1); SODIUM,NA 145.0 mmol/L (136-145)
[2025-07-07 07:27] LABS: ESTIMATED GFR 21.0 mL/min (>=60)
[2025-07-14 08:51] LABS: BASOPHILS PERCENT AUTO 0.5 % (0.0-1.0); EOSINOPHILS PERCENT AUTO 3.6 % (1.0-3.0); LYMPHOCYTES PERCENT AUTO 25.3 % (20.5-50.1); MONOCYTES PERCENT AUTO 8.3 % (2-8); NEUTROPHILS PERCENT AUTO 62.3 % (42.2-75.2); PLATELET COUNT,PLT 279 10^3/uL (150-450); RED BLOOD CELL COUNT 3.45 10^6/uL (4.2-5.4); WHITE BLOOD CELL COUNT,WBC 5.8 10^3/uL (5.0-10.0)
[2025-07-14 09:09] LABS: BLOOD UREA NITROGEN,BUN 48.0 mg/dL (7-18); CARBON DIOXIDE,CO2 30.0 mmol/L (21-32); CHLORIDE,CL 102.0 mmol/L (98-107); CREATININE 2.39 mg/dL (0.55-1.02); EST CRCL DRUG DOSING (CG) 24.65 mL/min; GLUCOSE RANDOM 215.0 mg/dL (70-99); POTASSIUM,K 4.8 mmol/L (3.5-5.1); SODIUM,NA 140.0 mmol/L (136-145)
[2025-07-14 09:10] LABS: ESTIMATED GFR 23.0 mL/min (>=60)
[2025-07-14] MEDS: Insulin Glarg,Human.Rec.Analog 100 Unit/ML 10 ML Vial SUBCUT SCH (20:25)
[2025-07-16] MEDS: Lactulose Soln 10 GM/15 ML 30 ML UD Cup PO PRN (09:02)
[2025-07-23 06:38] LABS: BASOPHILS PERCENT AUTO 0.4 % (0.0-1.0); EOSINOPHILS PERCENT AUTO 4.6 % (1.0-3.0); LYMPHOCYTES PERCENT AUTO 31.2 % (20.5-50.1); MONOCYTES PERCENT AUTO 9.5 % (2-8); NEUTROPHILS PERCENT AUTO 54.3 % (42.2-75.2); PLATELET COUNT,PLT 323 10^3/uL (150-450); RED BLOOD CELL COUNT 3.52 10^6/uL (4.2-5.4); WHITE BLOOD CELL COUNT,WBC 5.7 10^3/uL (5.0-10.0)
[2025-07-23 06:53] LABS: BLOOD UREA NITROGEN,BUN 41.0 mg/dL (7-18); CARBON DIOXIDE,CO2 30.0 mmol/L (21-32); CHLORIDE,CL 102.0 mmol/L (98-107); CREATININE 2.23 mg/dL (0.55-1.02); EST CRCL DRUG DOSING (CG) 26.41 mL/min; ESTIMATED GFR 25.0 mL/min (>=60); GLUCOSE RANDOM 272.0 mg/dL (70-99); POTASSIUM,K 4.4 mmol/L (3.5-5.1); SODIUM,NA 138.0 mmol/L (136-145)
[2025-07-23] MEDS: Insulin Glarg,Human.Rec.Analog 100 Unit/ML 10 ML Vial SUBCUT SCH (20:14)
[2025-07-25] MEDS: Insulin Glarg,Human.Rec.Analog 100 Unit/ML 10 ML Vial SUBCUT SCH (20:56)
[2025-07-27] MEDS: Insulin Glarg,Human.Rec.Analog 100 Unit/ML 10 ML Vial SUBCUT SCH (20:27)
[2025-07-28 06:39] LABS: BASOPHILS PERCENT AUTO 0.1 % (0.0-1.0); EOSINOPHILS PERCENT AUTO 3.2 % (1.0-3.0); LYMPHOCYTES PERCENT AUTO 29.6 % (20.5-50.1); MONOCYTES PERCENT AUTO 9.2 % (2-8); NEUTROPHILS PERCENT AUTO 57.9 % (42.2-75.2); PLATELET COUNT,PLT 300 10^3/uL (150-450); RED BLOOD CELL COUNT 3.44 10^6/uL (4.2-5.4); WHITE BLOOD CELL COUNT,WBC 7.3 10^3/uL (5.0-10.0)
[2025-07-28 06:48] LABS: BLOOD UREA NITROGEN,BUN 39.0 mg/dL (7-18); CARBON DIOXIDE,CO2 34.0 mmol/L (21-32); CHLORIDE,CL 102.0 mmol/L (98-107); CREATININE 2.36 mg/dL (0.55-1.02); EST CRCL DRUG DOSING (CG) 24.96 mL/min; GLUCOSE RANDOM 181.0 mg/dL (70-99); POTASSIUM,K 4.5 mmol/L (3.5-5.1); SODIUM,NA 142.0 mmol/L (136-145)
[2025-07-28 06:55] LABS: ESTIMATED GFR 23.0 mL/min (>=60)
[2025-07-29 08:29] VITALS: BP 150/84; PULSE 104
== END 2025-07-29 09:30 | DRG 560 ==
LOC: DL.MS 16:33
PROVIDERS: ADMIT Student in an Organized Health Care Education/Training Program; ATTEND Student in an Organized Health Care Education/Training Program
DX: S82.002D Unspecified fracture of left patella, subsequent encounter for closed fracture with routine healing (principal); E87.0 Hyperosmolality and hypernatremia; N39.0 Urinary tract infection, site not specified; N18.4 Chronic kidney disease, stage 4 (severe); N17.9 Acute kidney failure, unspecified; Z68.42 Body mass index [BMI] 45.0-49.9, adult; R53.81 Other malaise; J44.9 Chronic obstructive pulmonary disease, unspecified; E11.22 Type 2 diabetes mellitus with diabetic chronic kidney disease; Z66 Do not resuscitate; I12.9 Hypertensive chronic kidney disease with stage 1 through stage 4 chronic kidney disease, or unspecified chronic kidney disease; G47.33 Obstructive sleep apnea (adult) (pediatric); M19.90 Unspecified osteoarthritis, unspecified site; F41.9 Anxiety disorder, unspecified; F32.A Depression, unspecified; E78.00 Pure hypercholesterolemia, unspecified; Z96.659 Presence of unspecified artificial knee joint; D53.9 Nutritional anemia, unspecified; E11.40 Type 2 diabetes mellitus with diabetic neuropathy, unspecified; K59.00 Constipation, unspecified; E66.01 Morbid (severe) obesity due to excess calories; Z85.118 Personal history of other malignant neoplasm of bronchus and lung; Z79.4 Long term (current) use of insulin; Z79.899 Other long term (current) drug therapy
CPT/HCPCS: 36415; 51702; 80048; 82947; 83735; 85025; 97110-GO; 97110-GP; 97161-GP; 97165-GO; 97530-GO; 99306; 99309; 99310; 99315; A9270-GY; J1650; J1815-GY; J7030